=== PATIENT | male | born 1935 | race Caucasian/White ===

== ENCOUNTER 2016-07-14 07:43 | Day surgery (SDC) | payer MEDICARE ==
[~2016-07-14 07:43] MED LIST: ASPI-973 PO; ATEN25TA PO; CLOB15CR3 TOP; FLUO10TA PO; GLPZ5T PO; INSU100V7 SUBQ; ISOS60TA2 PO; KTC2C15 EXT; NITR0.4T6 SL; OMEP20CA11 PO; PANT40TA2 PO; PANT40TA3 PO; ROB500 PO; TAMS0.4C98 PO
[2016-07-14] MEDS ORDERED: Lidocaine Topical 2% 30 mL Jelly ONE (07:47)
[2016-07-17] MEDS ORDERED: CLOP75TA28 PO (16:24)
[2016-07-17] MEDS ORDERED: INSLIS SUBQ (16:24)
== END 2016-07-14 23:59 | disposition home or self-care (01) ==
LOC: END 07:43
PROVIDERS: ATTEND Internal Medicine Gastroenterology
DX: K22.4 Dyskinesia of esophagus (principal); R13.10 Dysphagia, unspecified

== ENCOUNTER 2016-07-20 10:46 | Day surgery (SDC) | payer MEDICARE ==
[~2016-07-20] VITALS: Ht 185.4 cm; Wt 98.0 kg
[~2016-07-20 10:46] MED LIST changes: +0.9% Sodium Chloride 1,000 ML IV PRN; -ASPI-973 PO; +CLOP75TA28 PO; -FLUO10TA PO; +INSLIS SUBQ; -ISOS60TA2 PO; -KTC2C15 EXT; +Lactated Ringer's 1,000 ML IV ONE; -PANT40TA2 PO; -PANT40TA3 PO; +Sodium Chloride LOK Flush 10 mL Syringe IV PRN; -TAMS0.4C98 PO; +fentaNYL-PF 50 mCg/mL 2 mL Inj IVPUSH PRN
[2016-07-20 11:16] VITALS: BP 141/82; PULSE 69; RESP 14; O2SAT 98
[2016-07-20] MEDS ORDERED: ASPI-973 PO (11:16)
[2016-07-20 12:05] VITALS: BP 135/85; PULSE 76; RESP 16; O2SAT 90
[2016-07-20 12:15] VITALS: BP 134/69; PULSE 69; RESP 16; O2SAT 93
[2016-07-20 12:25] VITALS: BP 134/73; PULSE 77; RESP 16; O2SAT 94
[2016-07-20 12:35] VITALS: BP 137/69; PULSE 74; RESP 16; O2SAT 92
--- NOTE | 2016-07-20 23:31 | ENDO ---
[address] [address] ENDOSCOPY PROCEDURE PATIENT: KATIE NGUYEN : 1935 MR#: [id number] ADMIT: 07/20/2016 JOB ID: [id number] DATE OF PROCEDURE: 07/20/2016 PRIMARY PROVIDER: Tammy Briggs MD. PROCEDURE: Esophagogastroduodenoscopy with biopsy. INDICATIONS: An 81-year-old male with recent inflamed proximal duodenum secondary to a change in NSAID therapy. He has since converted back to 81 mg aspirin and is back down to once daily PPI. He is not having any further symptoms for which he had to go to the emergency department for back in May. His manometry was reviewed today with the patient and does suggest some very subtle signs of early achalasia. The patient was not inclined to start changing around medical therapy at present. EQUIPMENT: [id number]. SEDATION: 1. Versed 2 mg. 2. Fentanyl 50 mcg. COMPLICATIONS: None identified. PROCEDURE INFORMATION: After the risks and benefits were explained, written and verbal informed consent was obtained. The patient was brought into the endoscopy suite and placed into the left lateral decubitus position. Sedation was achieved as above. The scope was introduced into the mouth through the bite block, and advanced under direct visualization to the second portion of the duodenum. The scope was slowly withdrawn to carefully examine the mucosa for any defects or lesions. Retroflexed views were accomplished in the stomach. The stomach was decompressed. The scope was removed from the patient who tolerated the procedure well. FINDINGS: 1. Esophagus: The squamocolumnar junction seemed to correlate with the top of the gastric folds. The GE junction was at about 40 cm from the incisors. No strictures. No erosions. No mass lesions. 2. Stomach: Retroflexed views of the LES disclosed a small sliding hiatal hernia. In the fundus there was a very small submucosal lesion that was mobile under the mucosal layer, reasonably firm. We were able to get a biopsy forceps on this and took a bite of it for histopathologic analysis. Otherwise, the patient had diffuse gastropathy as before. We did not repeat biopsies. No evolution in any findings in the stomach. No outlet obstruction. 3. Duodenum: The patient appeared to have scattered erythema throughout the bulb and some mild stenosis, but no impediment to passing the scope into D2 as was previously described. Overall, my impression was the mucosa appeared to be less inflamed than previously described. We did not repeat biopsies today. ENDOSCOPIC DIAGNOSES: 1. Small sliding hiatal hernia. 2. Proximal gastric small submucosal lesion. 3. Diffuse gastropathy with nodular features in the antrum and prepyloric region. 4. Healing proximal duodenopathy. RECOMMENDATIONS: 1. Await histopathology. 2. Surveillance EGD will really be contingent on the histology results. 3. Continue omeprazole and the low-dose aspirin. 4. The patient was suggested to follow up in Cardiology or Primary Care to consider switching out his atenolol for 30 mg diltiazem 3 times a day before meals. However, at this time the patient indicates his swallowing is not that big of a nuisance and he would rather not mess with his medical regimen at present.
--- NOTE | 2016-07-21 13:24 | PATH ---
SURGICAL PATHOLOGY Attending Physician:Camilo Bedoya CASE STATUS: Signed Out PATIENT NAME: KATIE NGUYEN PID: [id number] : 1935 DATE COLLECTED:07/20/2016 20:32 SPECIMEN: Gastric, Biopsy CLINICAL HISTORY: SUBMUCOSAL GASTRIC NODULE BIOPSY FINAL DIAGNOSIS: Biopsy Stomach Submucosal Nodule: Antral mucosa with hypertrophy of muscularis mucosa. Negative for evidence of neoplasm. ICD10 K31.89 GROSS DESCRIPTION: The specimen is received in one formalin filled container labeled with the patient's name, sublabeled "submucosal gastric nodule" consists of a 0.3 x 0.3 x 0.3 CM portion of tissue which is entirely submitted in one cassette. 07/20/2016 [facility] ICD-9 CODES: CPT CODES: 1: 74007 Electronically Signed Out Jacoby Thomas MD [facility] [address], [place] [address] Technical component performed at [facility], [address] [place] [address] Ave[address], [place], [address]
== END 2016-07-20 23:59 | disposition home or self-care (01) ==
LOC: END 10:46
PROVIDERS: ATTEND Internal Medicine Gastroenterology
DX: K31.89 Other diseases of stomach and duodenum (principal); K44.9 Diaphragmatic hernia without obstruction or gangrene; K29.80 Duodenitis without bleeding; I25.10 Atherosclerotic heart disease of native coronary artery without angina pectoris; Z95.1 Presence of aortocoronary bypass graft; E11.9 Type 2 diabetes mellitus without complications; Z79.4 Long term (current) use of insulin; I10 Essential (primary) hypertension; Z95.810 Presence of automatic (implantable) cardiac defibrillator
CPT/HCPCS: 43239; 99153; G0500; J2250; J7030

== ENCOUNTER 2016-11-16 04:54 | Inpatient (IN) | payer MEDICARE ==
[2016-11-16] VITALS (10 sets, daily range): BP systolic 135–157; BP diastolic 70–97; PULSE 55–74; RESP 18–20; O2SAT 93–94
[~2016-11-16] VITALS: Ht 185.4 cm; Wt 93.7 kg
[~2016-11-16 04:54] MED LIST changes: -0.9% Sodium Chloride 1,000 ML IV PRN; +ASPI-973 PO; -CLOP75TA28 PO; -Lactated Ringer's 1,000 ML IV ONE; -Sodium Chloride LOK Flush 10 mL Syringe IV PRN; -fentaNYL-PF 50 mCg/mL 2 mL Inj IVPUSH PRN
[2016-11-16] MEDS ORDERED: Polyethylene Glycol (PEG) 17 Gm Powder PO PRN (05:55)
[2016-11-16] MEDS ORDERED: Ondansetron 2 mg/mL 2 mL Inj IVPUSH PRN (05:55)
[2016-11-16] MEDS ORDERED: Senna-Docusate 8.6-50 mg Tablet PO PRN (05:55)
[2016-11-16] MEDS ORDERED: Alum-Mag Hydrox-Simeth 30 mL Suspension PO PRN (05:55)
[2016-11-16 06:27] LABS: BASOPHILS % (AUTO) 0.6 % (0-3); EOSINOPHILS % (AUTO) 5.1 % (0-5); MONOCYTES % (AUTO) 8.2 % (4-12); Mean Corpuscular Hemoglobin 30.4 pg (27.0-35.0); Mean Corpuscular Volume 88.7 fL (81-100); NEUTROPHILS % (AUTO) 61.9 % (40-74); Platelet Count 209 bil/L (150-400)
[2016-11-16] MEDS: 0.9% Sodium Chloride 1,000 ML IV SCH ×2 (06:28→20:30)
[2016-11-16 06:43] LABS: INR 0.95 ratio
--- NOTE | 2016-11-16 06:45 | NUR ---
Admission: Pt received from [facility] at 0540 to room 2003 with complaints of R shoulder/arm pain 4/10. Pt transferred over on 19.9 mls/hour of heparin. Pt placed on our pump at 20 ml/hour or 1000 unit/hour, awaiting PTT results. Dr. Benitez notified of heparin gtt and R shoulder/arm pain. Pt given 2 mg of IV Morphine, which brought his R should/arm pain down to a 2/10. Pt has 1/2" of Nitro paste from [facility] on his RUC wall. Initial assessment completed as charted. Pt atrially paced on the monitor and currently resting. 2L of oxygen placed on pt. Call light within reach; bed in the low and locked position. Will cont. to monitor and update oncoming staff.
[2016-11-16] MEDS: Nitroglycerin 2% 1 Gm Ointment TOPICAL SCH ×3 (07:53→20:30)
[2016-11-16] MEDS: Sodium Chloride LOK Flush 10 mL Syringe IVFLUSH SCH ×2 (07:53→16:25)
[2016-11-16 07:55] LABS: TROPONIN T 0.304 ug/L (0.0-0.011)
[2016-11-16] MEDS ORDERED: Glucose 40% Oral Gel 15 Gm Tube PO PRN (08:05)
[2016-11-16] MEDS ORDERED: FLUO10CA20 PO ×2 (08:27)
[2016-11-16] MEDS ORDERED: Insulin GLARgine 100 Unit/mL Syringe SUBQ SCH (08:30)
[2016-11-16] MEDS ORDERED: PANT40TA3 PO (08:34)
[2016-11-16] MEDS: Insulin LISPRO 300 Unit/3 mL Inj SUBQ SCH ×3 (12:00→20:31)
--- NOTE | 2016-11-16 13:43 | DRSVH ---
[facility] [address] [place] [address] Echocardiogram Report Name: KATIE NGUYEN WStudy Date : 11/16/2016 Height: 73 in Hospital Exam Location: [facility] Weight: 220 lb Gender: Male BSA: 2.2 m2 : 1935 Age: 81 yrs BP: 147/81 mmHg Reason For Study: Chest pain Ordering Physician: Performed By: [facility] Interpretation Summary 1) Upper normal left ventricular thickness with normal size and normal systolic function (EF 55-60%). 2) Mid inferior wall is hypokinetic. 3) Normal right ventricular size with borderline reduced function. Pacemaker lead visualized in the right ventricle. 4) No significant valvular abnormalities present. 5) Compared to the Echo done 05/19/2016, mid inferior wall hypokinesis is new on today's study. Procedure: A two-dimensional transthoracic echocardiogram with color flow and Doppler was performed. The study quality was technically adequate. Comparison is made with the echocardiogram of 05-19-16. The patient has a paced rhythm. Left Ventricle: The left ventricle is normal in size. Left ventricular wall thickness is at the upper limits of normal. The ejection fraction is estimated to be 55-60%. There is apical septal wall hypokinesis. Diastolic function could not be accurately assessed due to paced rhythm. Right Ventricle: There is a pacemaker lead in the right ventricle. The right ventricle is normal size. Right ventricular systolic function is borderline reduced. Atria: The left atrium is mildly dilated. Right atrial size is normal. There is a catheter/pacemaker lead seen in the right atrium. The interatrial septum is intact with no evidence for an atrial septal defect. Mitral Valve: The mitral valve leaflets appear mildly thickened, but open well. There is moderate mitral annular calcification. There is mild mitral regurgitation. Aortic Valve: The aortic valve is trileaflet. The aortic valve opens well. No aortic regurgitation is present. Tricuspid Valve: The tricuspid valve leaflets are thin and pliable. There is mild tricuspid regurgitation. The right ventricular systolic pressure is estimated at 42 mmHg assuming a right atrial pressure of 3 mm Hg. Pulmonic Valve: The pulmonic valve is not well seen, but is grossly normal. There is trace pulmonic regurgitation. Great Vessels: The aortic root is normal size. The ascending aorta is normal in size. The IVC is of normal diameter and collapses greater than 50% with a sniff. This suggests a low right atrial pressure of 3 mm Hg. Pericardium/ Pleura There is no pericardial effusion. There is no pleural effusion. MMode/2D Measurements & Calculations LVIDd: 4.7 cm LA dimension: 4.8 cm RA long axis Ao root diam LVIDs: 2.9 cm FS: 38.1 % LA A2 area: 28.5 cm RA area Aortic Jxn: 3.0 cm IVSd: 1.1 cm LA A4 area: 26.9 cm asc Aorta Diam LVPWd: 1.1 cm LA length (vol) : 21.0 cm RA vol Ao Arch Diam (Prox LA vol: 95.3 ml : 70.1 ml Trans): 3.3 cm LA vol index RA : 31.3 mm/ RVDd major IVC diam: 1.8 cm : 6.0 cm LV glass. diameter/BSA LV sys. diameter/BSA RVD1 (basal) RVD2 (mid): 3.4 cm (cm/m^2): 2.1 (cm/m^2): 1.3 Doppler Measurements & Calculations LVOT Max Kedar MV E max kedar MV E/A: 1.2 TR max kedar : 133.2 cm/sec : 119.7 cm/sec Med Peak E' Kedar : 311.6 cm/sec MV A max kedar TR max PG : 103.0 cm/sec E/E' med: 23.6 : 38.8 mmHg MV P1/2t: 57.2 msec Lat Peak E' Kedar PA V2 max : 97.2 cm/sec E/E' lat: 16.9 PA mean PG E/e' average PA Accel Time MV A dur: 0.14 sec : 0.13 sec MV dec time MV P1/2t max kedar LV V1 max PG PA V2 mean : 0.19 sec : 61.6 cm/sec MVA(P1/2t): 3.8 cm2 LV V1 VTI: 31.5 cm Reading Physician:01:43 PM
--- NOTE | 2016-11-16 14:32 | PCM.CHPCAR ---
Consult Subjective Date of service November 16, 2016 Date of admit November 16, 2016 at 05:44 Provider Requesting Consult Requesting Provider: Jackson Hand MD Primary Care Physician Primary Care Physician: Tammy Briggs MD Chief Complaint Chest pain with pain in right arm then left arm also began 2 days ago. History of Present Illness Mr. Montoya is an 81-yr old man with a history of CAD and prior 5-vessel AC Bypass surgery in 2009. He had polymorphic VT around that time although his grafts remained patent. He received a dual chamber ICD in 2009 and it has continue to perform normally with no detections of sustained since implant. Last ICD check was on 10/19/16; leads were good and battery remaining longevity est. was 2.9 yrs. Mr. Montoya also has hx of diabetes, hypertension and dyslipidemia. Starting at least a year ago, he has not been able to make the round trip to his mailbox without resting at the mailbox. Symptoms have been exertional dyspnea a fatigue. In recent weeks be began having right shoulder and arm discomfort with exertion. He and his family went RV camping this weekend at [facility]. His says he has been very inactive at home and spend most of his time in his recliner then sleeps 10 hrs at night. He could not rest well at the campground and has right arm pain which was continuous. Wednesday night he took full doses of Tylenol but could not get relief. His discomfort was from epigastrum to clavicles and went down both arm to his fingers. He finally took NTG with definite improvement. With this, decision was clear to him and his that they needed to head to [facility] which was some 45 miles away. He took 2 more SL NTGs each 10 min and had positive response but it was not until he was in ED and NTG paste was applied that he finally had good relief from pain. Mr. Montoya was transferred to [facility]. Review of Systems General: Reports: Endurance (poor) Fatigue Normal Appitite Eyes: Denies: Problem or recent change in eyes Ears, Nose, Mouth & Throat: Reports: Partial hearing loss Denies: Difficulty speaking Difficulty swallowing Respiratory: Reports: Dyspnea with exertion Denies: Cough or wheezing Orthopnea or PND Significant dyspnea Cardiovascular: Reports: Chest discomfort typical for angina Denies: Abdominal distention Lightheadedness or syncope Lower extremity edema Gastrointestinal: Denies: Abdominal discomfort Nausea Genitourinary: Denies: Hematuria Musculoskeletal: Reports: Significant myalgias (Right arm and shoulder) Neurological: Reports: Dizziness Denies: Any history of stroke/TIA symptoms Slurred speech Psychiatric: Reports: Anxious Depression (mild) Sleep disturbance Endocrine: Denies: Heat or cold intolerance Polydipsia Integumentary: Denies: Any rash or skin lesions Skin discomfort Hematologic/Immunologic: Denies: Unusual bruising or bleeding PMH Past Medical History # CAD s/p 5V CABG in 1999 # VT s/p AICD 2009 # CKD # Poorly controlled diabetes # Hyperlipidemia # Hypertension HEENT History: Positive for:: Hearing Problem Cardiovascular History: : AICD Cardiovascular History: : Cardiac Surgery (5-Vessel AC Bypass in 2009) Cardiovascular History: : Coronary Artery Disease Cardiovascular History: : Hx Cardiac Disorders Cardiovascular History: : Hypertension Cardiovascular History: : Other Arrythmias (Polymorphic VT) Respiratory History: Denies:: COPD Pneumonia Gastrointestinal History: Positive for a: Gastroesphageal Reflux Denies: Gastrointestinal Bleeding Genitourinary History: Denies: HX of Hemodialysis Reproductive History Male: Denies: Prostate Problems Neurological History: Denies: CVA Dementia Musculoskeletal History: Positive for: Degenerative Joint (of hip) Psycho Social History: Positive for:: Hx Depression Skin History: Denies:: History Skin Disorders? Hematic/Lymphatic/Neoplastic: Positive for: Cancer (large intestine) Denies: Blood Disorders Hx Any Other Health Problems?: Yes (renal insufficiency)Hx Diabetes: Yes Bedside Blood Glucose: 182 Scheduled Aspirin (Aspirin) 81 Mg Tablet 81 MG PO DAILY (Reported) Atenolol (Atenolol) 25 Mg Tablet 25 MG PO HS (Reported) Fluoxetine (Fluoxetine) 10 Mg Capsule 10 MG PO MORNING (Reported) Fluoxetine (Fluoxetine) 10 Mg Capsule 20 MG PO HS (Reported) Glipizide (Glipizide) 5 Mg Tablet 10 MG PO BID (Reported) Insulin Glargine (Lantus U100 Insulin Vial) 100 Unit/Ml Vial 40 UNIT SUBQ QAM ( Reported) Insulin Human Lispro (HumaLOG U100 Insulin Vial) 100 Unit/Ml Unit 2-5 UNIT SUBQ TID (Reported) Check blood sugars before meals and at bedtime. Use correction factor only before meals. Blood Sugar Lispro Correction: <151, 0 units; 151-175, 1 unit; 176-200, 2 units; 201-225, 3 units; 226-250, 4 units; 251-275, 5 units; 276-300 , 6 units; 301-325, 7 units; 326-350, 8 units; 351-375, 9 units; 376-400, 10 units; >400, [address] (Pantoprazole DR) 40 Mg Tablet.dr 40 MG PO HS (Reported) Scheduled PRN Nitroglycerin SL (Nitroglycerin SL) 0.4 Mg Tab.subl 0.4 MG SL PRN PRN PRN CHEST PAIN (Reported) Discontinued Medications Clobetasol Propionate/Emoll (Clobetasol Emollient 0.05% Crm) 15 Gm Cream..g. 1 APPL TOP BID PRN PRN dry skin (Reported) Methocarbamol (Methocarbamol) 500 Mg Tablet 500 MG PO (Reported) Omeprazole (Omeprazole) 20 Mg Capsule.dr 20 MG PO 3X WEEK (Reported) Current Inpatient Medications Current Medications Sodium Chloride 10 ml 10 ml [id number] IVFLUSH Last administered on 11/16/16 07:53; Admin Dose 10 ML; Start 11/16/16 at 08:30 Sodium Chloride 1,000 ml @ 80 mls/hr [id number] IV Last administered on 11/16/16 06:28; Admin Dose 80 MLS/HR; Start 11/16/16 at 05:53 Aspirin 81 mg DAILY PO Last administered on 11/16/16 07:53; Admin Dose 81 MG; Start 11/16/16 at 08:30 Nitroglycerin 1 inch Q6 TOPICAL Last administered on 11/16/16 07:53; Admin Dose 1 INCH; Start 11/16/16 at 08:30 Al Hydrox/Mg Hydrox/Simethicone 30 ml Q6 PRN PO; Start 11/16/16 at 05:55 Ondansetron HCl 4-8 mg prn nausea Q4 PRN IVPUSH; Start 11/16/16 at 05:55 Senna 1 tablet BID PRN PO; Start 11/16/16 at 05:55 Polyethylene Glycol 17 gm DAILY PRN PO; Start 11/16/16 at 05:55 Acetaminophen 325 mg Q6 PRN PO; Start 11/16/16 at 05:55 Nitroglycerin 0.4 mg Q5MIN PRN SL; Start 11/16/16 at 05:55; Stop 11/16/16 at 06 :14; Status DC Morphine Sulfate 1-5 mg prn pain not relie... Q5M PRN IVPUSH Last administered on 11/16/16 06:24; Admin Dose 2 MG; Start 11/16/16 at 05:55 Heparin Sodium (Porcine) Per Protocol for a... PRN PRN IVPUSH; Start 11/16/16 at 06:50 Insulin Glargine 20 unit DAILY SUBQ; Start 11/16/16 at 08:30; Stop 11/16/16 at 09:50; Status DC Insulin Human Lispro Nutritional Dose to be given pr... [facility] SUBQ; Start at 12:00 Atenolol 25 mg DAILY PO Last administered on 11/16/16 10:45; Admin Dose 25 MG; Start 11/16/16 at 08:30 Insulin Glargine 20 unit HS SUBQ; Start 11/16/16 at 21:00 Allergies: Coded Allergies: [id number]-[id number] Reductase Inhibitor (Verified Allergy, Intermediate, MAKE HIM HURT ALL OVER, 11/16/16) bupropion (Verified Allergy, Intermediate, ANXIETY, 11/16/16) metformin (Verified Allergy, Unknown, 11/16/16) STATES CANNOT TAKE DUE TO KIDNEY FUNCTION lactose (Verified Adverse Reaction, Intermediate, Diarrhea, 11/16/16) Family History Family History daughter healthy Social History Hx Alcohol Use: NoHx Substance Use: NoHx Tobacco Use: Yes Smoking Status: Former Smoker Exam Vital Signs Vital Sign - Last Date Time Temp Pulse Resp B/P Pulse Ox O2 Delivery O2 Flow Rate FiO2 11/16/16 13:12 36.2 65 18 141/79 93 Nasal Cannula 2.00 General: Pleasant Cooperative Moderately obese Well developed, well nourished Skin: Warm & dry to touch No rashes Head: Normocephalic Balding male pattern Eye: EOMS intact PERRLA Neck: Nuchal obesity:JVP assess difficult JVP normal No bruits Ears, Nose & Throat: Ears no gross abnormalities Hearing loss Chest: Clear auscultation w/o rales/wheeze Normal breath sounds No rales or wheeze Cardiac: Normal non-displaced apical impulse Regular rhythm with normal S1-S2 Occasional premature beats No murmurs Pulses: Pulses full/equal all extremities Abdomen: Soft, non-distended, non-tender Absent bowel sounds Extremities: No deformities/club/erythema/edema Warm Neurological: Alert & oriented No gross motor or sensory deficits Oriented to time, person & place Psychological: Affect & interaction appropriate Memory grossly intact Oriented to time, place and person Other (easily irritable) Lab and Diagnostics Labs Peak troponin 0.381 Result Diagram: 11/16/1661611/16/16616 Assessment & Plan Assessment 81 yo M h/o CAD s/p 5V CABG in 1999, VT s/p ACID 2009, CKD, poorly controlled diabetes admitted with acute coronary syndrome/NSTEMI: # NSTEMI: patient's clinical presentation and troponin elevation are consistent with NSTEMI. He is having minimal symptoms now with nitro paste and heparin gtt. Patient's ECG is unchanged from his prior ECG. His Echo shows mid inferior wall hypokinesis but with overall preserved LV function. I spent significant time educating the patient about his condition and later also spoke with his over the phone. I recommended medical management for now as his MN appears mild. If medical management fails, he can be considered by invasive angiography with possible PCI. Risks involved in cardiac cath are MN, stroke, , and need for dialysis (especially due to his CKD). Recommendations as below: - Continue aspirin 81mg daily - Continue heparin gtt - Start clopidogrel 75mg daily after 300mg load - Continue nitro paste - Continue atenolol 25mg qAM - Start rosuvastatin 2.5mg qhs. Patient strongly opposed to statin due to prior history of statin related myalgias but is willing to try low dose rosuvastatin after much convincing. 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 Etiology is likely diabetic nephropathy. He is not in NERY-I for unclear reasons but was on it many years ago based on [facility] chart review. - Start lisinopril as above to reduce long-term progression of CKD # VT s/p AICD 2009: No VT noted since admission. ACID appears to be functioning well on telemetry. Continue to monitor. # HTN: well controlled at home per patient. BP elevated in the hospital. - Meds as above # Diabetes: management per hospitalist service # HLD: as above Attending Statement I saw, examined, and evaluated the patient with Freddie Brownlee PA-C, on 2016 and agree with the note as above along with my edits Freddie Brownlee PA-C November 16, 2016 14:32 Klever Tristan MD November 16, 2016 15:29
--- NOTE | 2016-11-16 14:50 | PCM.HPMED ---
Subjective Date of Service November 16, 2016 Primary Provider: Admitting Physician: Vandana Nava DO Primary Care Physician: Tammy Briggs MD Attending Physician: Vandana Nava DO Admit Status: Direct Admit, [facility] Telemetry Chief Complaint: Chest pain, NSTEMI History of Present Illness: This is a 81-year-old gentleman who presented to [facility] 2 days of intermittent right arm and neck pain as well as chest pain. The patient is described as low-level and aching but persistent. With this he had fatigue but no nausea, vomiting or diaphoresis. No overt dyspnea. He has a history of known CAD with a history of coronary artery bypass grafting 5 in 2009. He also has a known history of polymorphic ventricular tachycardia with an ICD implantation in 2009. He notes increasing dyspnea on exertion but no pedal edema for the last year. The patient denies recent fevers or chills. No cough. No abdominal pain, nausea. No rectal bleeding or diarrhea. He was brought to [facility] by his family today were subungual nitroglycerin and topical cold nitroglycerin were given. He was heparinized and transferred for further evaluation. He unfortunately also has chronic kidney disease which borders on stage III and 4. His GFR today is 30. He denies any recent change in urine volume or quality. He is unconvinced that she would pursue dialysis if and when that became a consideration. Review of Systems: No headache, visual changes or change in hearing. No rhinorrhea. No wall weight change. He denies anxiety or depression. All systems reviewed and otherwise negative except as noted in history of present illness. Allergies Coded Allergies: Miukbnm-Jkx-Vtp Reductase Inhibitor (Verified Allergy, Intermediate, MAKE HIM HURT ALL OVER, 11/16/16) bupropion (Verified Allergy, Intermediate, ANXIETY, 11/16/16) metformin (Verified Allergy, Unknown, 11/16/16) STATES CANNOT TAKE DUE TO KIDNEY FUNCTION lactose (Verified Adverse Reaction, Intermediate, Diarrhea, 11/16/16) Home Medications Aspirin (Aspirin) 81 Mg Tablet 81 MG PO DAILY (Reported) Atenolol (Atenolol) 25 Mg Tablet 25 MG PO HS (Reported) Fluoxetine (Fluoxetine) 10 Mg Capsule 10 MG PO MORNING (Reported) Fluoxetine (Fluoxetine) 10 Mg Capsule 20 MG PO HS (Reported) Glipizide (Glipizide) 5 Mg Tablet 10 MG PO BID (Reported) Insulin Glargine (Lantus U100 Insulin Vial) 100 Unit/Ml Vial 40 UNIT SUBQ QAM ( Reported) Insulin Human Lispro (HumaLOG U100 Insulin Vial) 100 Unit/Ml Unit 2-5 UNIT SUBQ TID (Reported) Check blood sugars before meals and at bedtime. Use correction factor only before meals. Blood Sugar Lispro Correction: <151, 0 units; 151-175, 1 unit; 176-200, 2 units; 201-225, 3 units; 226-250, 4 units; 251-275, 5 units; 276-300 , 6 units; 301-325, 7 units; 326-350, 8 units; 351-375, 9 units; 376-400, 10 units; >400, [address] (Pantoprazole DR) 40 Mg Tablet.dr 40 MG PO HS (Reported) Scheduled PRN Nitroglycerin SL (Nitroglycerin SL) 0.4 Mg Tab.subl 0.4 MG SL PRN PRN PRN CHEST PAIN (Reported) Discontinued Medications Clobetasol Propionate/Emoll (Clobetasol Emollient 0.05% Crm) 15 Gm Cream..g. 1 APPL TOP BID PRN PRN dry skin (Reported) Methocarbamol (Methocarbamol) 500 Mg Tablet 500 MG PO (Reported) Omeprazole (Omeprazole) 20 Mg Capsule.dr 20 MG PO 3X WEEK (Reported) Current Inpatient Medications PMH CAD with history of coronary artery bypass grafting. Polymorphic ventricular tachycardia with ICD implantation Chronic kidney disease stage III Surgical History Coronary artery bypass grafting 2009. Family History Strong family history for CAD. Several brothers have prematurely from heart attack. Social History Occupation: retired Hx Alcohol Use: No Hx Substance Use: No Hx Tobacco Use: Yes Smoking Status: Former Smoker Living Arrangement: with Family Exam Vital Signs Vital Sign - Last Date Time Temp Pulse Resp B/P Pulse Ox O2 Delivery O2 Flow Rate FiO2 11/16/16 13:12 36.2 65 18 141/79 93 Nasal Cannula 2.00 Exam Oriented 3. No distress. Fluent speech. Normal affect. Normal skull. Normal nose and ears. Anicteric sclera, symmetric pupils Oropharynx is unremarkable, no facial droop. Neck is supple, normal thyroid. No adenopathy. Lungs are clear, normal effort rate. Chest is normal for an ICD, subcutaneous. Heart is regular without murmur gallop or rub. Abdomen soft, nondistended or tender. Extremities are free of pedal edema. Good radial and pedal pulses. Skin is free of rash, lesions. No petechiae or ecchymosis. Joints are grossly normal. Cranial nerves are grossly normal. Motor strength is normal in all extremities. Normal muscular tone. Lab and Diagnostics Result Diagram: 11/16/1661611/16/16616 12-lead ECG Sinus rhythm, right bundle branch block. Possible anterolateral ST depressions and Q waves in inferior leads. Assessment & Plan 1. Chest pain with evidence of NSTEMI, POA and stable. The plan is to continue optimize medical therapy with beta blockade, aspirin as well as nitroglycerin topically and a heparin drip. Cardiology, consultation to further elicit their recommendations. This patient would be at high risk for deterioration of renal function in context of coronary angiogram so this may not be an option. We will also trend troponins. 2. Chronic kidney disease, stage IIIB. POA and fairly stable. We will follow his creatinine carefully and avoid any nephrotoxic events. 3. Polymorphic ventricular tachycardia, stable and POA. ICD implant. The patient is full resuscitation, this is discussed today. She was admitted inpatient status with anticipated length of stay of over 2 nights. Pain Evaluation: Adequate Pain Control Resuscitation Status: CPR: Attempt Resuscitation Time spent 45 minutes Jackson Hand MD November 16, 2016 14:50
[2016-11-16 15:38] LABS: APPEARANCE,URINE CLEAR (CLEAR,HAZY); COLOR,URINE YELLOW (YELLOW); PH,URINE 5.5 (5.0-8.0)
[2016-11-16 15:39] LABS: OCCULT BLOOD,URINE SMALL (NEGATIVE); UROBILINOGEN,URINE NORMAL (NORMAL)
--- NOTE | 2016-11-16 16:21 | NUR ---
Social Work-initial assessment: Data:See initial assessment. Pt is a 81 y/o male who was admitted on 11/16/16 for N stemi per H&P. Pt's insurance is [employer] and PCP is Tammy Briggs MD. EMR reviewed. SW met with pt to discuss discharge planning, SW Role explained. Pt is alert and oriented x3. Pt resides at home with his where he remains independent with ADLS. pt has a fww and cane to use and does drive. Pt had HH one time, but he kicked them out. Pt has no SNF history. Pt has no intermission coordinator care or VA benefits. SW discussed DPOA/ advanced directive, pt confirms he has completed this, SW encouraged a copy to be brought in. Pt anticipates to return home no needs. Pt's family to provide transport home. SW provided phone number and plan on white board in room. SW will continue to follow. Assessment:Pt who is independent at baseline. Plan:Pt to discharge home when medically stable via POV. No anticipated discharge needs. SW will continue to follow. ENRIQUE Benavidez Addendum: 11/16/16 at 1631 by ORALIA LEONARD SS Amended: Links added.
--- NOTE | 2016-11-16 17:57 | NUR ---
CARDIAC/RESPIRATORY Patient denies CP this shift, although does continue to report dull ache in L shoulder, but tolerable level at 2/10. Nitro paste applied per orders, medications administered as ordered. Heparin gtt adjusted per cardiac protocol and PTT results. Most recent PTT of 33.0, so will increase heparin gtt again per protocol. Vitals stable, telemetry paced in 60s-70s, will continue to monitor. Patient has continued to require 2L NC this shift, w/ SpO2 only in low to mid 90s. Will continue to monitor respiratory status. at bedside for most of day, and patient has reported feeling "wiped out" today, requests to sleep for much of shift.
[2016-11-16] MEDS: Insulin GLARgine 100 Unit/mL Syringe SUBQ SCH (20:31)
[2016-11-17] VITALS (8 sets, daily range): BP systolic 121–146; BP diastolic 63–74; PULSE 64–77; RESP 20–24; O2SAT 91–94
[2016-11-17] MEDS: Heparin 5,000 Unit/mL Inj IVPUSH PRN ×2 (00:20→12:05)
[2016-11-17] MEDS: Sodium Chloride LOK Flush 10 mL Syringe IVFLUSH SCH ×3 (00:20→16:30)
[2016-11-17] MEDS: Heparin 25K Unit/500mL 0.45 NS 25,000 UNIT in IV Premix 1 EACH IV SCH ×2 (03:39→22:31)
[2016-11-17] MEDS: Nitroglycerin 2% 1 Gm Ointment TOPICAL SCH ×4 (03:40→20:42)
--- NOTE | 2016-11-17 07:05 | NUR ---
Cardiac Pt denies CP throughout. VSS. Heparin infused and managed per cardiac protocol. No overt complications noted.
[2016-11-17] MEDS: Insulin LISPRO 300 Unit/3 mL Inj SUBQ SCH ×4 (08:00→20:43)
[2016-11-17 09:00] LABS: Magnesium 1.9 mg/dL (1.6-2.6)
[2016-11-17 09:05] LABS: TROPONIN T 0.444 ug/L (0.0-0.011)
[2016-11-17] MEDS: 0.9% Sodium Chloride 1,000 ML IV SCH ×2 (09:12→20:42)
--- NOTE | 2016-11-17 09:19 | PROG NOTE ---
[address] [address] PROGRESS NOTE PATIENT: KATIE NGUYEN : 1935 MR#: [id number] ADMIT: 11/16/2016 JOB ID: [id number] DATE: 11/17/16 SUBJECTIVE: The patient is an 81-year-old male with a longstanding history of diabetes, hypertension, and untreated hyperlipidemia with chronic renal disease with creatinines generally in the 1.4-1.8 range who has been followed by Dr. Mccallum. He had a five-vessel CABG in 2009 complicated by polymorphic VT with repeat catheterization that showed patent grafts. He ultimately obtained a dual-chamber ICD in April 2010 although has not had any discharges since implantation. Over the past year, he has had progressive increasing dyspnea and occasional chest discomfort and saw Dr. Mccallum in April 2016 following an admission when his creatinine had increased to 2.2. His most recent ischemic evaluation was in April of 2014 when he had a moderate intensity reversible distal anterior perfusion defect, which was similar to 2009 at the time of his repeat catheterization. Because of his renal insufficiency, he has continued to be treated medically. He was admitted with a 2-3 day history of much more severe and prolonged chest discomfort radiating across the upper chest into both arms and into his neck. This was relieved by nitroglycerin. On admission, his creatinine had increased back up to 2.2 with a troponin of 0.38. While his ECG reportedly showed no changes, on my personal review, there clearly is some new ST depression in the anterolateral leads with very subtle ST elevation in lead III. He was started on IV heparin and underwent echocardiography that showed an ejection fraction of 55%-60% with a new mid inferior wall area of hypokinesis. Because of his renal insufficiency, he has been treated medically with heparin, Plavix, and topical nitrates. He states that he had recurrent chest discomfort this morning when standing to take off his pants that was similar to his presenting discomfort but it promptly resolved. He has had no dyspnea. He denies any palpitations. DATE: PHYSICAL EXAMINATION: HR 77, BP 137/74. O2 saturation 93% on room air. Weight is 100.9 kg. Lungs: Clear bilaterally to auscultation. CV: Regular rate and rhythm without any appreciable murmurs or gallops. JVP is around 4 cm. Carotid pulses are 2+ bilaterally with a possible faint bruit on the left. Abdomen: Moderately obese but nondistended, nontender, without any palpable masses or organomegaly. Extremities: Warm without edema. LABORATORY: Labs from this morning are pending. His CK yesterday was 221 with an MB of 19 (8.6%). His LDL was 138. BUN yesterday was 32 with a creatinine of 2.2 with a glucose of 292. ECG: His ECG today shows an atrial paced rhythm with frequent PACs with a right bundle branch block and small inferior Q-waves with a very slight ST elevation in lead III with significant ST depression in the anterolateral leads but unchanged from yesterday. IMPRESSION: 1. Probable NSTEMI. On the basis of his symptoms, echocardiogram, and ECG as well as his elevated troponin, I suspect that he has had an acute coronary syndrome, likely in the inferior distribution. It sounds like he has had recurrent post infarct angina this morning. Given this, I have discussed with him again about possible strategies going forward. One would be continued attempted medical management while the other would be to pursue an invasive evaluation, recognizing that his renal insufficiency puts him at risk for nephropathy from contrast. He again adamantly declines to consider dialysis but is willing to proceed with cardiac catheterization. I discussed that there could be no guarantee that he would not have progressive renal failure which could ultimately lead to and his response is "you have to go sometime." At this point, I will await this morning's laboratory and discuss further with Dr. Higginbotham in regards to attempting cardiac catheterization with limited use of contrast. In the meantime, I will continue with his current medical therapy. 2. Hyperlipidemia. He remains adamant that he will not try any statins. 3. Diabetes. Per the hospitalist. 4. Hypertension. Adequately controlled. 5. History of polymorphic VT. No evidence of any recurrence. PLAN: 1. Continue with his current medications for now, although I would be inclined to change his atenolol to metoprolol because of his renal insufficiency. 2. Discuss further with Dr. Higginbotham in regards to possible cardiac catheterization. 3. Diabetes management per the hospitalist. I spent from 7:45-8:49 reviewing the patient's medical record, examining the patient, interviewing the patient and answering his questions.
--- NOTE | 2016-11-17 10:29 | PCM.PNMED ---
Subjective Date of Service November 17, 2016 Subjective The patient is feeling somewhat better today. No nausea. No vomiting. He did have mild chest pain when standing. No palpitations. No leg swelling or orthopnea. No other overnight events. Exam Vital Signs Vital Sign - Last Date Time Temp Pulse Resp B/P Pulse Ox O2 Delivery O2 Flow Rate FiO2 11/17/16 09:24 76 11/17/16 08:18 36.6 20 137/74 93 Room Air 11/16/16 20:27 2.00 Intake and Output 11/16/16 11/16/16 11/17/16 Cumulative From/Thru 15:00 23:00 07:00 11/16/16 05:40 - 11/17/16 06:12 Intake Total 1457 ml 1459 ml 2916 ml Output Total 450 ml 1400 ml 1850 ml Balance 1007 ml 59 ml 1066 ml Intake Oral 400 ml 200 ml 600 ml IV Total 1057 ml 1259 ml 2316 ml Output Urine Total 450 ml 1400 ml 1850 ml # Voids 3 3 # Bowel Movements 0 0 Exam Alert and oriented -3, no distress. Fluent speech Anicteric sclera. Lungs are clear with normal rate and effort Heart is regular without murmur gallop or rub Abdomen soft nontender, flat Extremities are free of edema. Skin is free of rash or lesions. IVs and Medications Medications Reviewed: Medications were reviewed in detail Lab and Diagnostics Result Diagram: 11/16/16 0617 11/17/16 0555 12-lead ECG Sinus rhythm, right bundle branch block. Possible anterolateral ST depressions and Q waves in inferior leads. Assessment & Plan 1. Chest pain with evidence of NSTEMI, POA and stable. Troponins have remained relatively stable but elevated on medical regimen. Cardiology has proposed coronary angiogram today. The patient is declining statins at this point. We will plan on angiography with possible PCI. 2. Acute kidney injury at the time of admission and Chronic kidney disease, stage IIIB. POA and improved overnight. We will follow his creatinine carefully and avoid any nephrotoxic events. 3. Polymorphic ventricular tachycardia, stable and POA. ICD implant. No other changes for today. The patient is full resuscitation, this is discussed today. He was admitted inpatient status with anticipated length of stay of over 2 nights. Resuscitation Status: CPR: Attempt Resuscitation Jackson Hand MD November 17, 2016 10:29
--- NOTE | 2016-11-17 17:38 | NUR ---
Trops Pt's trop came back at 0.444 today up from 0.381 at previous draw, Dr. Childers notified, instructed to make Pt NPO at that time, Dr. Higginbotham came through to discuss procedure with Pt and instructed RN to resume diet until midnight. Pt on heparin cardiac gtt throughout shift, dosing adjusted per heparin cardiac protocol.
[2016-11-17] MEDS: Insulin GLARgine 100 Unit/mL Syringe SUBQ SCH (20:43)
[2016-11-18] VITALS (11 sets, daily range): BP systolic 106–148; BP diastolic 56–75; PULSE 60–72; RESP 18–24; O2SAT 91–96
[2016-11-18] MEDS: Heparin 5,000 Unit/mL Inj IVPUSH PRN (00:31)
[2016-11-18] MEDS: Sodium Chloride LOK Flush 10 mL Syringe IVFLUSH SCH ×3 (00:32→17:58)
[2016-11-18 03:06] LABS: Mean Corpuscular Volume 88.3 fL (81-100)
[2016-11-18] MEDS: Nitroglycerin 2% 1 Gm Ointment TOPICAL SCH (03:13)
[2016-11-18] MEDS: Isosorbide Mononitrate 30 mg ER24 Tablet PO SCH (07:35)
--- NOTE | 2016-11-18 07:40 | NUR ---
Cardiac Denies CP. VSS. Heparin gtt infusing and managed per cardiac protocol. Pt is NPO since mid [facility] for possible cardiac intervention in am. Pt verbalizes understanding. Approx at 0430 pt removed his Tele leads and was angry at staff for not knowing what time the heart cath is going to be. Explained to pt no info available at this time for [facility] shift staff. After extensive talk with pt he was willing to keep Tele leads on. No overt complications noted.
[2016-11-18] MEDS: Insulin LISPRO 300 Unit/3 mL Inj SUBQ SCH ×4 (08:00→21:23)
--- NOTE | 2016-11-18 08:45 | PROG NOTE ---
[address] [address] PROGRESS NOTE PATIENT: KATIE NGUYEN : 1935 MR#: [id number] ADMIT: 11/16/2016 JOB ID: [id number] DATE: 11/18/2016 SUBJECTIVE: The patient met with Dr. Higginbotham yesterday morning and decided not to proceed with cardiac catheterization out of concerns for nephrotoxicity and the fact that he had no further chest discomfort. Since then, he has remained chest pain-free, although has not ambulated. He remains somewhat confused, pulling off his telemetry monitoring early this morning, but now is reoriented. While he denies any anginal chest discomfort, he states that he can "feel my heart." Apparently with each heartbeat, he is able to feel his heart beat. He describes mild shortness of breath but says this is his normal baseline, and denies any worsening of his dyspnea or any orthopnea. He has had no lightheadedness. PHYSICAL EXAMINATION: HR 68, BP 147/69, O2 saturation 94% on room air. His weight is not recorded today. He is up around 2 L net positive fluid balance. Skin: Warm and dry. Lungs: Clear bilaterally. CV : Irregularly irregular rhythm without any appreciable murmurs or gallops. There is no JVD. Abdomen: Moderately obese but nondistended and nontender. Extremities: Warm without any edema. LABORATORY: Hematocrit this morning is 37% with a white count of 10.7. His troponin peaked yesterday at 0.44, and this morning is 0.39. His creatinine has improved slightly from 1.52 down to 1.46, with a BUN falling from 26-25. Potassium is 4.4. Glucose this morning is 154. IMPRESSION: 1. Probable [id number] myocardial infarction (STEMI). We again discussed the therapeutic options. Given that he has not had any recurrent chest discomfort and that he has the desire to avoid hemodialysis at all cost, I think continuing to attempt medical therapy is reasonable, reserving cardiac catheterization if he has recurrent angina. Given this, I will further advance his metoprolol which was changed from atenolol yesterday. He was on 25 mg every 8 hours, and I will increase this to 50 mg b.i.d. I will also transition him from his current topical nitropaste to isosorbide mononitrate 60 mg daily, noting that he was on 90 mg as an outpatient. He has now had 48 hours of IV heparin, and I will discontinue this and have the patient ambulate. If he remains chest pain-free, then I suspect that he can be discharged tomorrow, with followup with Dr. Mccallum as an outpatient. If he has recurrent chest discomfort, then cardiac catheterization can again be considered. At this point, I do not believe that risk stratification with a stress test is going to change consultant given that I would not pursue cardiac catheterization unless he had symptoms, given his desire to avoid hemodialysis. 2. Hyperlipidemia. He appears to be tolerating low-dose rosuvastatin, and I would simply continue this at its current dose for now. He could potentially be considered for a PCSK9 inhibitor, but this can be deferred to the outpatient setting. 3. Diabetes. Much better control. 4. Hypertension. This appears to be much better controlled. 5. Status post pacemaker. Appears to be functioning normally. PLAN: 1. Advance metoprolol and transition from topical nitrates to long-acting oral nitrates, with further advancement as his blood pressure allows. 2. Discontinue IV heparin. 3. Ambulate and monitor for any recurrent angina. 4. If he remains chest pain-free, I would discharge him tomorrow, with followup with Dr. Mccallum. If he has recurrent angina, then an invasive evaluation can be pursued if he is amenable. TIME SPENT: I have spent 54 minutes reviewing the medical record, interviewing and examining the patient, and later discussing plans with the patient's . HARVINDER
--- NOTE | 2016-11-18 08:45 | PCM.PNMED ---
Subjective Date of Service November 18, 2016 Subjective He is doing well today. No chest pain, cough or dyspnea. No palpitations. No nausea or abdominal pain. No diaphoresis. He is going to the bathroom without difficulty. No overnight events Exam Vital Signs Vital Sign - Last Date Time Temp Pulse Resp B/P Pulse Ox O2 Delivery O2 Flow Rate FiO2 11/18/16 04:25 36.7 68 20 147/69 94 Room Air 11/16/16 20:27 2.00 Intake and Output 11/17/16 11/17/16 11/18/16 Cumulative From/Thru 15:00 23:00 07:00 11/16/16 05:40 - 11/18/16 05:48 Intake Total 1490 ml 1661 ml 6067 ml Output Total 1025 ml 1125 ml 4000 ml Balance 465 ml 536 ml 2067 ml Intake Oral 220 ml 400 ml 1220 ml IV Total 1270 ml 1261 ml 4847 ml Output Urine Total 1025 ml 1125 ml 4000 ml # Voids 1 4 # Bowel Movements 0 Exam Alert and oriented -3, no distress. Fluent speech Anicteric sclera. Lungs are clear with normal rate and effort Heart is regular without murmur gallop or rub Abdomen soft nontender, flat Extremities are free of edema. Skin is free of rash or lesions. IVs and Medications Medications Reviewed: Medications were reviewed in detail Lab and Diagnostics Result Diagram: 11/18/16 02411/18/16 0240 12-lead ECG Sinus rhythm, right bundle branch block. Possible anterolateral ST depressions and Q waves in inferior leads. Assessment & Plan 1. NSTEMI, POA and stable. The patient has declined coronary angiography for fear of risk of nephrotoxicity given his tenuous kidney function. We are treating him medically for an STEMI. Today we will discontinue the heparin drip and convert Nitropaste isosorbide as well as uptitrate beta blockade. 2. Acute kidney injury at the time of admission and Chronic kidney disease, stage IIIB. POA and much improved as of yesterday.. We will follow creatinine and continue to avoid nephrotoxic agents. 3. Polymorphic ventricular tachycardia, stable and POA. Status post ICD implant. This is stable so No other changes for today. The patient is full resuscitation, this is discussed today. He was admitted inpatient status with anticipated length of stay of over 2 nights. Resuscitation Status: CPR: Attempt Resuscitation Jackson Hand MD November 18, 2016 08:45
--- NOTE | 2016-11-18 19:41 | NUR ---
Ambulation/mentation Pt walked with this RN down to the end of the unit and back. No O2 needed. Pt used a walker for extra support. Steady on feet. No c/o SOB or dyspnea. Pt went on 3 more walks throughout the shift with and family members. No issues. Pt A&O throughout the shift. Very pleasant and cooperative with cares.
[2016-11-18] MEDS: Insulin GLARgine 100 Unit/mL Syringe SUBQ SCH (21:22)
[2016-11-18] MEDS ORDERED: Nitroglycerin 2% 1 Gm Ointment TOPICAL ONE (22:54)
[2016-11-19] VITALS (17 sets, daily range): BP systolic 121–164; BP diastolic 59–89; PULSE 57–81; RESP 16–24; O2SAT 89–96
[2016-11-19] MEDS: Sodium Chloride LOK Flush 10 mL Syringe IVFLUSH SCH ×3 (00:57→17:20)
[2016-11-19] MEDS: Nitroglycerin 2% 1 Gm Ointment TOPICAL SCH ×6 (02:37→20:04)
[2016-11-19 03:08] LABS: Mean Corpuscular Hemoglobin 29.5 pg (27.0-35.0); Mean Corpuscular Volume 88.9 fL (81-100)
--- NOTE | 2016-11-19 03:18 | NUR ---
Chest pain/anger/Nitro At approx 2200 pt C/O chest pain radiating down both arms , Ordered Stat EKG, VS, called charge , Gave 2 Mg MS IV, , Contacted Dr. Morillo , Nitro SL and Nitro Paste were ordered : gave Nitro SL Q 5 M x3 to relieve most of the chest pain placed 1 inch nitro paste. Pt has been able to sleep most of the night when not awakened for care. Pt is somewhat combative doesn't want to be disturbed , Dr Morillo was re contacted with progress report, stated that she will pass on the Dr Childers all of what has transpired , will probably recommend Chair Post Machine Operator AM . Pt is SL , on 6 L O2 per NC. Telemetry: Paced in the 80's. in room assisting with ADL . Addendum: 11/19/16 at 0613 by ANDREAS LUGO RN Experienced chest pain while standing at beside to void, describes as pressure that went away as he got back into bed.
[2016-11-19 04:15] LABS: TROPONIN T 0.342 ug/L (0.0-0.011)
[2016-11-19] MEDS: Isosorbide Mononitrate 30 mg ER24 Tablet PO SCH ×2 (07:30→07:43)
[2016-11-19] MEDS: Insulin LISPRO 300 Unit/3 mL Inj SUBQ SCH ×5 (07:55→22:00)
--- NOTE | 2016-11-19 07:55 | NUR ---
Chest Pain Pt c/o 03/30 crushing chest pain, some SOB on NC 6L 96%. BP 152/83. Chest pain throughout the night on and off Nitro 1 inch arlready applied at 0230. 2mg IVP Morphine administered at 0705. Stat EKG ordered and cardiology called. 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 Will continue to monitor.
--- NOTE | 2016-11-19 08:44 | PROG NOTE ---
[address] [address] PROGRESS NOTE PATIENT: KATIE NGUYEN : 1935 MR#: [id number] ADMIT: 11/16/2016 JOB ID: [id number] CARDIOLOGY PROGRESS NOTE: DATE: 11/19/2016 SUBJECTIVE: The patient has had an intermittent, prolonged chest discomfort throughout the night and is ongoing currently. He describes this as identical to his presenting discomfort with a pressure like discomfort radiating into both elbows and up to the ears. He is somewhat arousable and a reluctant historian but denies any dyspnea or pleuritic component to the discomfort. He has been given intermittent doses of nitroglycerin and morphine with intermittent relief. PHYSICAL EXAMINATION: Fairly comfortable appearing elderly male, although hard of hearing and somewhat arousable. HR 73. BP 142/70. O2 saturation 93% on room air. He had a net diuresis yesterday of around 1.1 L although weights are not recorded. Lungs: Slight crackles throughout but without any appreciable wheeze. CV: Distant heart tones with a regular rhythm with frequent premature beats. There are no appreciable murmurs or gallops. There is no obvious JVD. Abdomen: Soft, nondistended, nontender. Extremities: Warm without edema. LABORATORY: White count this morning is 34 with a white count of 7.4. BUN is 27 and a creatinine of 1.6 compared to 25 and 1.5 yesterday. His troponin this morning has continued to decline from 0.396 yesterday, down to 0.342 today. ECG: Shows probable underlying atrially paced rhythm but with frequent PACs, now with wide QRS complexes which most likely reflect ventricular pacing, although pacer spikes are not clearly evident. On the [place] conducted beats, there continues to be borderline inferior ST elevation with lateral ST depression that appears unchanged from his previous ECG. IMPRESSION: 1. Non-ST elevation myocardial infarction, now with recurrent prolonged post infarct angina despite medical therapy. I again discussed with he and his therapeutic strategies including medical management versus cardiac catheterization although with his recurrent chest discomfort appearing to reflect a failure of medical therapy, I have recommended cardiac catheterization, although again emphasizing that there is a risk of renal injury associated with this. The , who has power of business attorney, and speaks for him understands this and both he and she agreed to proceed. I have contacted Dr. Higginbotham who will make arrangements for proceeding with cardiac catheterization sometime this morning. In the meantime, I will advance his topical nitrates for further anginal control. 2. Status post pacemaker. His current underlying rhythm is somewhat unclear and I will have his device interrogated this morning. 3. Acute on chronic renal insufficiency. His creatinine, while slightly higher than yesterday, is still at his normal baseline and improved from admission. Every attempt will be made to minimize contrast nephropathy. same. PLAN: 1. Increase topical nitrates. 2. Proceed with urgent cardiac catheterization by Dr. Higginbotham with further recommendations based on those results. 3. Pacemaker interrogation this morning to assess his underlying rhythm. 4. Continue to track electrolytes and renal function closely postprocedure. TIME: I spent 42 minutes reviewing the patient's record, examining and interviewing the patient and answering he and his 's questions and talking with Dr. Higginbotham.
[2016-11-19] MEDS ORDERED: Heparin 1,000 Unit/mL 10 mL Inj ONE (09:51)
[2016-11-19] MEDS ORDERED: Nitroglycerin 50,000 mcg/250 mL D5W Premix IV ONE (09:51)
[2016-11-19] MEDS ORDERED: Heparin 10,000 Unit/1,000 mL NS Premix IV ONE (09:52)
--- NOTE | 2016-11-19 10:18 | NUR ---
OFF UNIT Pt off unit to labor relations analyst at 1000. at the bedside. Report given to labor relations analyst at bedside. BG this am was 162. Vitals stable, nitro removed, 2 IV's. Will call report to [facility] staff. Hearing aids went with, glasses left at bedside. Addendum: 11/19/16 at 1421 by JERRY HUANG RN Back to unit at 1400. Vitals stable, denies chest discomfort. On bedrest till 1500, plans to eat lunch at that point. BG was 143. Right groin site soft and non tender.
[2016-11-19] MEDS ORDERED: fentaNYL-PF 50 mCg/mL 2 mL Inj ONE (10:27)
--- NOTE | 2016-11-19 14:58 | NUR ---
[facility]/recovery Pt had stable recovery of diagnostic heart cath, VSS and WNL on RA, groin sites soft non tender. Pt updated on plan of care, pt denies chest pain, report called to Elia Mcduffie RN.
--- NOTE | 2016-11-19 19:26 | PCM.PNMED ---
Subjective Date of Service Nov 19, 2016 Subjective Follow for NSTEMI. Patient seen and examined at bedside . No new complaints no chest pain , no shortness of breath, Exam Vital Signs Vital Sign - Last Date Time Temp Pulse Resp B/P Pulse Ox O2 Delivery O2 Flow Rate FiO2 11/19/16 16:48 37.0 67 20 147/72 93 Room Air 11/19/16 14:07 2.00 Intake and Output 11/18/16 11/18/16 11/19/16 Cumulative From/Thru 15:00 23:00 07:00 11/16/16 05:40 - 11/19/16 06:24 Intake Total 520 ml 100 ml 6687 ml Output Total 300 ml 1200 ml 5500 ml Balance 220 ml -1100 ml 1187 ml Intake Oral 520 ml 100 ml 1840 ml IV Total 4847 ml Output Urine Total 300 ml 1200 ml 5500 ml # Voids 4 # Bowel Movements 0 Exam Gen ; Overnight make in bed comfortably. NAD HEENT : THERESE, Sclerae is anicteric Neck : Supple, no JVD , trachea is midline Chest : Normal respiratory effort Lung : Clear bilaterally . No crackles, no wheezing Heart : S1S2, RRR, no lujan; Abdomen : Non tender, non distended. Ext : No cyanosis , no edema , no calf tenderness Neuro : Grossly non focal . IVs and Medications Medications Reviewed: Medications were reviewed in detail Lab and Diagnostics Result Diagram: 11/19/1623411/19/16234 12-lead ECG Sinus rhythm, right bundle branch block. Possible anterolateral ST depressions and Q waves in inferior leads. Assessment & Plan 1. NSTEMI, POA and stable. Troponin stable and trending down.Patient is agreeable today to cardiac catheterization On ASA, Statin BB, and ACEI 2. Acute kidney injury at the time of admission and Chronic kidney disease, stage IIIB. Creatinine 1.6 today. Improved from 2 on admission Start NS @ 75 ml/hr to decrease risk of contrast nephropathy Mucomyst 600 mg PO x 3 doses. BMP in am. Hold lisinopril . 3. Polymorphic ventricular tachycardia, stable and POA. Status post ICD implant. This is stable so No other changes for today. Hemodynamically and clinically stable. Patient underwent cardiac cath today. Official report is pending. He is scheduled back to the crown and bridge dental lab technician for tomorrow for possible angioplasty Resuscitation Status: CPR: Attempt Resuscitation Time spent 35 minutes Rios Martinez MD Nov 19, 2016 19:26
[2016-11-19] MEDS: Acetylcysteine 20% 200 mg/mL 4 mL Inhalation Solution PO SCH (20:20)
[2016-11-19] MEDS: 0.9% Sodium Chloride 1,000 ML IV SCH (20:20)
[2016-11-19] MEDS: Insulin GLARgine 100 Unit/mL Syringe SUBQ SCH ×2 (21:45→21:56)
--- NOTE | 2016-11-19 22:14 | NUR ---
Refused Insulin Pt refused insulin, Bedside Blood sugar 223 , Risks of refusal was explained , pt became angry , demanded to be left alone . WCTM
[2016-11-20] VITALS (12 sets, daily range): BP systolic 125–162; BP diastolic 71–85; PULSE 63–79; RESP 16–20; O2SAT 90–94
[2016-11-20] MEDS: Sodium Chloride LOK Flush 10 mL Syringe IVFLUSH SCH ×4 (00:21→23:57)
[2016-11-20] MEDS: Insulin GLARgine 100 Unit/mL Syringe SUBQ SCH (02:31)
[2016-11-20] MEDS: Nitroglycerin 2% 1 Gm Ointment TOPICAL SCH ×3 (02:38→14:41)
--- NOTE | 2016-11-20 04:45 | NUR ---
Insulin/Tele/Fear Pt consented to taking insulin, , mood improving with rest, seems frustrated by being hospitalized , in room assisting w ADL, 2 L O2 per NC, Groin puncture site CDI,NS @ 75 Ml/hr. NPO for pending Leach Runner procedure in AM Telemetry , Paced 70's,
[2016-11-20] MEDS: 0.9% Sodium Chloride 1,000 ML IV SCH (08:55)
[2016-11-20] MEDS: Acetylcysteine 20% 200 mg/mL 4 mL Inhalation Solution PO SCH ×2 (09:42→21:20)
[2016-11-20] MEDS: Insulin LISPRO 300 Unit/3 mL Inj SUBQ SCH ×4 (09:45→21:23)
--- NOTE | 2016-11-20 12:57 | NUR ---
Chest pain pt reported moderate 5/10 chest pain/pressure, with discomfort of shoulders. pt denies radiating. nitropaste in place. blood pressure elevated. PRN morphine given. will monitor for effctiveness. Addendum: 11/20/16 at 1310 by JUAN VILLANUEVA RN minimal effectiveness with morphine. Elisabet ZHANG in to assist with situation. MD informed of situation. nitroglycerin tablet SL x1 given by Elisabet ZHANG, cutting pain pressure in half. continuing to monitor. Addendum: 11/20/16 at 1757 by JERRY HUANG RN Rechecked on pt in 1 hour and he was resting comfortably in bed. Rechecked pt again around dinner and still chest pain free. Pt stated hes anxious and just wants to get the procedure done. Will continue to monitor.
--- NOTE | 2016-11-20 15:21 | NUR ---
Social Work: Continued Discharge Planning D: Pt discussed in am rounds. Pt is not medically stable for discharge at this time. Pt anticipated to require hospitalizaton until kidney functioning improved. PRECINCT POLICE SERGEANT met with pt at bedside to assess for unmet needs. pt has been on bedrest for the last day due to current cardiac status. Pt states that he has no concerns about his ability to mobilize once allowed to do so. PRECINCT POLICE SERGEANT introduced the idea of possible home health as a possible service MD may request at discharge. Pt states that he does not want home health and states that he has a small apartment and uses a walker and cane occasionally. He declines any other needs at this time. A: Pt who is I at baseline. P: PRECINCT POLICE SERGEANT to continue to follow; Anticipate pt to discharge home when medically stable. ENRIQUE Lundberg
--- NOTE | 2016-11-20 15:33 | PCM.PNMED ---
Subjective Date of Service Nov 20, 2016 Subjective Follow up for NSTEMI. Creatinine slightly up today . Angioplasty on hold Some chest pain today relieved by nitroglycerine Exam Vital Signs Vital Sign - Last Date Time Temp Pulse Resp B/P Pulse Ox O2 Delivery O2 Flow Rate FiO2 11/20/16 13:11 71 138/71 92 Nasal Cannula 4.00 11/20/16 11:59 36.4 20 Intake and Output 11/19/16 11/19/16 11/20/16 Cumulative From/Thru 15:00 23:00 07:00 11/16/16 05:40 - 11/20/16 06:11 Intake Total 671 ml 1071 ml 8429 ml Output Total 400 ml 850 ml 350 ml 7100 ml Balance -400 ml -179 ml 721 ml 1329 ml Intake Oral 200 ml 400 ml 2440 ml IV Total 471 ml 671 ml 5989 ml Output Urine Total 400 ml 850 ml 350 ml 7100 ml # Voids 1 5 # Bowel Movements 0 0 Exam Gen ; NAD in bed comfortably HEENT : THERESE, Sclerae is anicteric Neck : Supple, no JVD , trachea is midline , no cervical lymphadenopathy Chest : Normal respiratory effort , no use of accessory muscle Lung : Clear bilaterally . No crackles, no wheezing Heart : S1S2, RRR, no gallop Abdomen : Non tender, non distended. Ext : No cyanosis , no edema , no calf tenderness Neuro : Grossly non focal .AAo x 3 IVs and Medications Medications Reviewed: Medications were reviewed in detail Lab and Diagnostics Result Diagram: 11/19/1623411/20/16236 12-lead ECG Sinus rhythm, right bundle branch block. Possible anterolateral ST depressions and Q waves in inferior leads. Assessment & Plan 1. NSTEMI, POA and stable. Troponin stable and trending down.Patient is agreeable today to cardiac catheterization On ASA, Statin BB, and ACEI 2. Acute kidney injury at the time of admission and Chronic kidney disease, stage IIIB. Creatinine slightly up today to 1.78 today. On NS @ 75 ml/hr to decrease risk of contrast nephropathy Mucomyst 600 mg PO x 3 doses given. Repeat BMP in am. lisinopril on hold . 3. Polymorphic ventricular tachycardia, stable and POA. Status post ICD implant. This is stable so No other changes for today. Hemodynamically and clinically stable. Cardiac cath re-scheduled to Wednesday in view of worsening creatinine level. Case discussed with cardiology Resuscitation Status: CPR: Attempt Resuscitation Time spent 25 minutes Rios Martinez MD Nov 20, 2016 15:33
[2016-11-21] VITALS (8 sets, daily range): BP systolic 115–152; BP diastolic 64–74; PULSE 50–77; RESP 17–18; O2SAT 89–94
--- NOTE | 2016-11-21 04:08 | NUR ---
O2 Sats / Left Leg Numbness / HTN/ Groin site/ Tele No c/o SOB, but Pt desats during the night down to 89-90% on RA. Pt placed on O2 @ 3L NC, sats improved to 94%. Pt c/o left leg numbness, Pt feels pressure on leg when touched but sensation is dull, able to feel cold sensation and wetness when touched with alcohol swab. Pedal pulses palpable. Leg is warm to the touch and Pt is able to move his leg and wiggle all of his toes on the left side. Pt mildly hypertensive tonight with SBPs in the 140-150s. Right groin site bio-occlusive dressing intact. No hematoma or active signs of bleeding. Pedal pulses palpable. No c/o chest pain, Tele 100% A-Paced in the 70s per [employer] Technical Lead Senior Developer. in room at bedside all night.
[2016-11-21] MEDS: Isosorbide Mononitrate 30 mg ER24 Tablet PO SCH (08:08)
[2016-11-21] MEDS: Sodium Chloride LOK Flush 10 mL Syringe IVFLUSH SCH ×2 (08:09→17:28)
[2016-11-21] MEDS: Insulin LISPRO 300 Unit/3 mL Inj SUBQ SCH ×4 (08:23→21:52)
--- NOTE | 2016-11-21 14:43 | PCM.PNMED ---
Subjective Date of Service Nov 21, 2016 Subjective Patent seen and examined at bedside . No significant interval changes. No new complaints No chest pain, no shortness of breath Exam Vital Signs Vital Sign - Last Date Time Temp Pulse Resp B/P Pulse Ox O2 Delivery O2 Flow Rate FiO2 11/21/16 12:06 36.7 50 18 120/65 92 Nasal Cannula 1.50 Intake and Output 11/20/16 11/20/16 11/21/16 Cumulative From/Thru 15:00 23:00 07:00 11/16/16 05:40 - 11/21/16 06:42 Intake Total 944 ml 650 ml 06962 ml Output Total 950 ml 1175 ml 9225 ml Balance -6 ml -525 ml 798 ml Intake Oral 700 ml 650 ml 3790 ml IV Total 244 ml 6233 ml Output Urine Total 950 ml 1175 ml 9225 ml # Voids 5 # Bowel Movements 0 0 Exam Gen : Well nourished male. in bed comfortably. Neck : Supple,no JVD, trachea is midline. Chest : No deformities . Normal respiratory effort Lung : Clear bilaterally, no crackles, no wheezing Heart : S1S2, irregular, no murmur Abdomen : Soft, nt , no distended Ext : No edema, no cyanosis Skin : Intact, no ulcers, no calf tenderness Neuro : non focal IVs and Medications Medications Reviewed: Medications were reviewed in detail Lab and Diagnostics Result Diagram: 11/19/16 0235 11/21/16 021 12-lead ECG Sinus rhythm, right bundle branch block. Possible anterolateral ST depressions and Q waves in inferior leads. Assessment & Plan 1. NSTEMI, POA and stable. Troponin stable and trending down.Patient is agreeable today to cardiac catheterization On ASA, Statin BB, and ACEI 2. Acute kidney injury at the time of admission and Chronic kidney disease, stage IIIB. Creatinine slightly up today to 1.4 today. On NS @ 75 ml/hr to decrease risk of contrast nephropathy Mucomyst 600 mg PO x 3 doses given. Repeat BMP in am. lisinopril on hold . 3. Polymorphic ventricular tachycardia, stable and POA. Status post ICD implant. This is stable so No other changes for today. Hemodynamically and clinically stable. Cardiac cath re-scheduled to Wednesday Creatinine level improve to 1.4 today. Continue IVF , monitor renal function and electrolytes VTE Prophylaxis: Sub-Q Heparin (Unfractionated) Resuscitation Status: CPR: Attempt Resuscitation Time spent 25 minutes Rios Martinez MD Nov 21, 2016 14:43
--- NOTE | 2016-11-21 15:33 | NUR ---
Left leg Numbness Pt c/o left leg numbness upon assessment this am. Pt has mentioned to me during this stay about his numbness in his left leg but this is different than his normal because usually he is numb from the knee down. Now the numbness starts in the left hip and goes down. Has good pedal pulses, can feel me touch his leg, not warm to touch, no signs of swelling, has full range of motion. Will mention to MD to see if he wants further testing.
[2016-11-21] MEDS: Insulin GLARgine 100 Unit/mL Syringe SUBQ SCH (21:53)
[2016-11-22] VITALS (10 sets, daily range): BP systolic 129–150; BP diastolic 69–80; PULSE 61–77; RESP 16–20; O2SAT 91–98
[2016-11-22] MEDS: Sodium Chloride LOK Flush 10 mL Syringe IVFLUSH SCH ×4 (01:05→23:10)
--- NOTE | 2016-11-22 06:07 | NUR ---
Left leg/tele/pain Pt noted to have decreased numbness and tingling to LT leg at this time. Pedal pulses palpable. Pt denies pain/discomfort, shortness of breath and chest pain. Pt ROSA and able to ambulate with a steady gait to the bathroom using 1P SBA for safety. VSS. Telemetry A paced 69-70 with PA and PVCs per feed research technician. care ongoing.
[2016-11-22] MEDS: Isosorbide Mononitrate 30 mg ER24 Tablet PO SCH (08:31)
[2016-11-22] MEDS: Insulin LISPRO 300 Unit/3 mL Inj SUBQ SCH ×4 (08:31→20:18)
--- NOTE | 2016-11-22 15:02 | PCM.PNMED ---
Subjective Date of Service Nov 22, 2016 Subjective Patient seen and examined at bedside No new complaints Creatinine slightly up today Exam Vital Signs Vital Sign - Last Date Time Temp Pulse Resp B/P Pulse Ox O2 Delivery O2 Flow Rate FiO2 11/22/16 12:44 36.5 62 18 132/74 94 Room Air 11/22/16 08:20 2.00 Intake and Output 11/21/16 11/21/16 11/22/16 Cumulative From/Thru 15:00 23:00 07:00 11/16/16 05:40 - 11/22/16 06:46 Intake Total 1020 ml 400 ml 73508 ml Output Total 1050 ml 250 ml 13562 ml Balance -30 ml 150 ml 918 ml Intake Oral 1020 ml 400 ml 5210 ml IV Total 6233 ml Output Urine Total 1050 ml 250 ml 97575 ml # Voids 4 1 10 # Bowel Movements 1 1 Exam Gen ; Sitting in chair comfortably . Family by bedside HEENT : THERESE, Sclerae is anicteric Neck : Supple, no JVD , no thyromegaly Chest : Normal respiratory effort Lung : Clear bilaterally . No crackles, no wheezing Heart : S1S2, RRR, no gallop Abdomen : benign . BS normal all quadrants Ext : No cyanosis , no edema Neuro : AAO x3 . non focal IVs and Medications Medications Reviewed: Medications were reviewed in detail Lab and Diagnostics Result Diagram: 11/19/16 0235 11/22/16 0200 12-lead ECG Sinus rhythm, right bundle branch block. Possible anterolateral ST depressions and Q waves in inferior leads. Assessment & Plan 1. NSTEMI, POA and stable. Troponin stable and trending down.Patient is agreeable today to cardiac catheterization On ASA, Statin BB, and ACEI 2. Acute kidney injury at the time of admission and Chronic kidney disease, stage IIIB. Creatinine slightly up today to 1.6 today. NS @ 50 ml/hr . Repeat BMP in am. lisinopril on hold . 3. Polymorphic ventricular tachycardia, stable and POA. Status post ICD implant. This is stable so No other changes for today. Hemodynamically and clinically stable. Cardiac cath re-scheduled for tomorrow Creatinine sligtly up today to 1.6 but about baseline still. . Will start NS @ 50 ml/hr and obtain bmp in am. Patient with risk of worsening renal function post contrast exposure . That was discussed with him in detail with him and his . They both in agree to proceed VTE Prophylaxis: Sub-Q Heparin (Unfractionated) Resuscitation Status: CPR: Attempt Resuscitation Time spent 25 minutes Rios Martinez MD Nov 22, 2016 15:02
[2016-11-22] MEDS: 0.9% Sodium Chloride 1,000 ML IV SCH (15:26)
[2016-11-22] MEDS: Insulin GLARgine 100 Unit/mL Syringe SUBQ SCH (20:18)
--- NOTE | 2016-11-22 21:40 | NUR ---
BLOOD SUGARS/GROIN SITE Pt had 250 BS, gave 2 units insulin along with his 20 units Lantus. Pt had steady gait to the bathroom, VSS, no pain, groin site shows no sign of hematoma. No other issues noted at this time.
[2016-11-23] VITALS (14 sets, daily range): BP systolic 115–153; BP diastolic 62–91; PULSE 56–89; RESP 18–22; O2SAT 87–96
--- NOTE | 2016-11-23 04:03 | NUR ---
LABS Pt agitated and refused AM lab draw, pt and family member yelling at rags laborer about the gambreler helper labs. Labs rescheduled for 7am, pt was still agitated for last vitals check, VSS, pt wishes to be left along the remainder of the morning. No other issues noted at this time.
[2016-11-23] MEDS ORDERED: Heparin 1,000 Units/500 mL NS Premix IV ONE (06:32)
[2016-11-23] MEDS ORDERED: Heparin 10,000 Unit/1,000 mL NS Premix IV ONE (06:33)
[2016-11-23] MEDS ORDERED: Heparin 1,000 Unit/mL 10 mL Inj ONE (06:33)
[2016-11-23] MEDS ORDERED: Nitroglycerin 50,000 mcg/250 mL D5W Premix IV ONE (06:33)
--- NOTE | 2016-11-23 07:19 | NUR ---
To medical laboratory technologist patient left for medical laboratory technologist at 0705hrs
[2016-11-23] MEDS ORDERED: fentaNYL-PF 50 mCg/mL 2 mL Inj ONE (07:25)
[2016-11-23] MEDS ORDERED: Atropine 1 mg/10 mL (Code) Syringe ONE (07:58)
[2016-11-23] MEDS: Insulin LISPRO 300 Unit/3 mL Inj SUBQ SCH ×4 (08:00→21:42)
[2016-11-23] MEDS: Sodium Chloride LOK Flush 10 mL Syringe IVFLUSH SCH ×2 (08:30→16:17)
--- NOTE | 2016-11-23 08:36 | DI95 ---
[address] [address] INTERVENTIONAL CARDIAC CATHETERIZATION PATIENT: KATIE NGUYEN : 1935 MR#: [id number] ADMIT: 11/16/2016 JOB ID: [id number] DATE OF SERVICE: 11/23/2016 PROCEDURE: Percutaneous intervention on the saphenous vein graft to diagonal. INDICATION: [id number] FL. PROCEDURAL DETAILS: The reader and coders are referred to the procedure log for complete details. Briefly, this was done via right femoral approach using a 7-Estonian system. INTERVENTIONAL DETAILS: A Runthrough wire was used to cross this lesion. It was pre-dilated with a 2.0 balloon and then stented with a 2.5 x 15 mm Xience drug-coated stent. Echo revealed excellent angiographic results. At this point, a brief attempt was made to recanalize this PDA which was totally occluded past the insertion of the saphenous vein graft. The same Malgorzata right catheter was used to engage the SVG to RCA. We tried to open this chronic total occlusion. However, we were unsuccessful. There is a small, less than 0.5 mm branch that comes off at the site of flush occlusion. The wire was selected for that inferior vessel. A second wire was then used, leaving the 1st one in place. Despite that, we could not direct the wire into the PDA. Given the patient's renal insufficiency, I felt it would be safer to abort the procedure at that time. SUMMARY: In summary, successful intervention of the SVG to the diagonal. The patient is advised to have antiplatelet therapy for at least six months post procedure.
--- NOTE | 2016-11-23 08:48 | CS94 ---
[address] [address] DIAGNOSTIC CARDIAC CATHETERIZATION PATIENT: KATIE NGUYEN : 1935 MR#: [id number] ADMIT: 11/16/2016 JOB ID: [id number] SERVICE DATE: 11/19/2016 PROCEDURE: 1. Selective right and left coronary angiography. 2. Left heart catheterization. 3. Saphenous vein angiography. 4. JONES angiography. INDICATION: Non-ST elevation NV. Congestive heart failure. PROCEDURAL DETAILS: The reader and the coders are referred to the procedure log for complete details. Briefly, right femoral approach, a 6-Gambian system. ANGIOGRAPHIC FINDINGS: 1. Moderate calcification of the left coronary is noted on fluoroscopy. 2. Left main: Diffuse 20-30% disease. No critical stenosis. 3. LAD: Is totally occluded past the take-off of the first major diagonal. It is a diffusely diseased vessel with multiple tandem lesions ranging from 80-90%. 4. Circumflex: Is a moderate caliber vessel. It gives off a single obtuse marginal branch. The ramus and the obtuse marginal branches are subtotally occluded at the origin. 5. Right coronary artery: Is totally occluded past the takeoff of the conus branch. It is a flush occlusion with bridging collaterals. Intracoronary collaterals fill the distal vessel as well. This appears to have progressed since his last angiogram in 2009. 6. Saphenous vein graft to the ramus is occluded. Presumably, there was a graft to the SVG as well. This graft appears to be occluded as well. 7. Saphenous vein graft to the right coronary artery is patent. It has mild disease, about 40% in its distal segment. After the anastomosis to the PDA, the graft fills the right coronary retrogradely as well as the posterolateral branches. However, the ongoing PDA itself is totally occluded. 8. JONSE to LAD is patent. 9. SVG to diagonal has a tight 90% lesion in its proximal segment. 10. Left heart catheterization revealed an LVEDP of 25. No gradient upon pullback. 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 There has been significant interim disease progression. Given his moderate renal insufficiency, he will be brought back at a subsequent date for an intervention. I would try to recanalize this distal PDA if possible. I would also proceed with an intervention on the saphenous vein graft to the diagonal.
[2016-11-23] MEDS ORDERED: Ondansetron 2 mg/mL 2 mL Inj IVPUSH PRN (09:55)
[2016-11-23] MEDS ORDERED: Atropine 1 mg/10 mL (Code) Syringe IVPUSH PRN (09:55)
[2016-11-23] MEDS ORDERED: 0.9% Sodium Chloride 250 ML BOLUS IV PRN (09:55)
[2016-11-23] MEDS ORDERED: SODIUM CHLORIDE IV SCH (09:55)
[2016-11-23] MEDS ORDERED: Sodium Chloride LOK Flush 10 mL Syringe IVFLUSH PRN (09:55)
--- NOTE | 2016-11-23 10:37 | NUR ---
patient returned from labor arbitrator hearing office at 1030hrs. denies CP/SOB, N/V. right groin star close. no hematoma, distal pulses palpable. patient does report new numbness to upper left thigh. stated that it started yesterday. 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
[2016-11-23] MEDS: 0.9% Sodium Chloride 1,000 ML IV SCH (11:05)
[2016-11-23] MEDS: Isosorbide Mononitrate 30 mg ER24 Tablet PO SCH (11:30)
--- NOTE | 2016-11-23 15:01 | PCM.PNMED ---
Subjective Date of Service Nov 23, 2016 Subjective No interval changes. For cardiac cath today Creatinine overall about the same Exam Vital Signs Vital Sign - Last Date Time Temp Pulse Resp B/P Pulse Ox O2 Delivery O2 Flow Rate FiO2 11/23/16 11:22 36.3 67 18 153/84 96 Nasal Cannula 2.00 Intake and Output 11/22/16 11/22/16 11/23/16 Cumulative From/Thru 15:00 23:00 07:00 11/16/16 05:40 - 11/23/16 06:36 Intake Total 840 ml 830 ml 27484 ml Output Total 775 ml 1380 ml 87213 ml Balance 65 ml -550 ml 433 ml Intake Oral 840 ml 200 ml 6250 ml IV Total 630 ml 6863 ml Output Urine Total 775 ml 1380 ml 33673 ml # Voids 3 13 # Bowel Movements 1 Exam Gen ; NAD . HEENT : THERESE, Sclerae is anicteric Neck : Supple, no JVD , trachea is midline Chest : Normal respiratory effort Lung : Clear bilaterally . No crackles, no wheezing Heart : S1S2, RRR, no lujan; Abdomen : Non tender, non distended. Ext : No cyanosis , no edema , no calf tenderness Neuro : AAO x 3. non focal . IVs and Medications Medications Reviewed: Medications were reviewed in detail Lab and Diagnostics Result Diagram: 11/19/16 0235 11/23/16 0656 12-lead ECG Sinus rhythm, right bundle branch block. Possible anterolateral ST depressions and Q waves in inferior leads. Assessment & Plan 1. NSTEMI, POA and stable. Troponin stable and trending down. On ASA, Statin BB, and ACEI 2. Acute kidney injury at the time of admission and Chronic kidney disease, stage IIIB. 3. Polymorphic ventricular tachycardia, stable and POA. Status post ICD implant. T Hemodynamically and clinically stable. Cardiac cath for today I will keep him on normal saline at 75 ml/hr to decrease risk of contrast induced nephropathy and repeat BMP aung . Creatinine sligtly up today to 1.6 Hopefully home tomorrow VTE Prophylaxis: Sub-Q Heparin (Unfractionated) Resuscitation Status: CPR: Attempt Resuscitation Time spent 25 minutes Attending Statement Signed for Dr. Rios Martinez in his absence. Rios Martinez MD Nov 23, 2016 15:01 Rogerio Chapa MD Dec 08, 2016 07:09
--- NOTE | 2016-11-23 17:52 | NUR ---
Post CVL patient denies CP/SOB. cardiac cath earlier this am with a right groin puncture. star close post procedure. right groin site soft with palpable pulses distally. denies pain or discomfort to site. Educated patient regarding post care; self splinting groin with move, lifting, bending bearing down, cough and sneezing. patient verbalized understanding. he will need reinforcement at discharge. continue to monitor.
[2016-11-23] MEDS: Insulin GLARgine 100 Unit/mL Syringe SUBQ SCH (21:41)
[2016-11-24] VITALS (10 sets, daily range): BP systolic 109–142; BP diastolic 61–80; PULSE 55–75; RESP 17–20; O2SAT 90–94
[2016-11-24] MEDS: Sodium Chloride LOK Flush 10 mL Syringe IVFLUSH SCH ×4 (00:30→23:39)
--- NOTE | 2016-11-24 05:34 | NUR ---
no chest pain/rest pt denies any chest pain this whole shift, pt reports feeling a lot better after heart cath, denies any SOB, pts right groin with no change, soft non-tender, pt getting good sleep this shift. tele A-paced
[2016-11-24] MEDS: 0.9% Sodium Chloride 1,000 ML IV SCH (07:05)
[2016-11-24] MEDS: Isosorbide Mononitrate 30 mg ER24 Tablet PO SCH (08:51)
[2016-11-24] MEDS: Insulin LISPRO 300 Unit/3 mL Inj SUBQ SCH ×4 (08:51→20:56)
--- NOTE | 2016-11-24 09:16 | NUR ---
LUKAS signed @ 466NM
[2016-11-24] MEDS ORDERED: Insulin GLARgine 100 Unit/mL Syringe SUBQ ONE (11:10)
--- NOTE | 2016-11-24 11:12 | PCM.PNMED ---
Subjective Date of Service Nov 24, 2016 Subjective He is doing well. No chest pain. No dyspnea. No nausea. He denies any abdominal pain or leg edema. No fevers or chills. He is urinating without difficulty. No overnight events Exam Vital Signs Vital Sign - Last Date Time Temp Pulse Resp B/P Pulse Ox O2 Delivery O2 Flow Rate FiO2 11/24/16 09:20 74 11/24/16 08:07 36.6 18 141/61 94 Room Air 11/23/16 11:22 2.00 Intake and Output 11/23/16 11/23/16 11/24/16 Cumulative From/Thru 15:00 23:00 07:00 11/16/16 05:40 - 11/24/16 06:39 Intake Total 150 ml 669 ml 400 ml 28520 ml Output Total 600 ml 350 ml 700 ml 58451 ml Balance -450 ml 319 ml -300 ml 2 ml Intake Oral 400 ml 400 ml 7050 ml IV Total 150 ml 269 ml 7282 ml Output Urine Total 600 ml 350 ml 700 ml 97583 ml # Voids 1 14 # Bowel Movements 0 1 Exam Alert and oriented -3, no distress. Fluent speech Anicteric sclera. Lungs are clear with normal rate and effort Heart is regular without murmur gallop or rub Abdomen soft nontender, flat Extremities are free of edema. Skin is free of rash or lesions. Hearing impaired IVs and Medications Medications Reviewed: Medications were reviewed in detail Lab and Diagnostics Result Diagram: 11/19/16 0235 11/24/16 0515 12-lead ECG Sinus rhythm, right bundle branch block. Possible anterolateral ST depressions and Q waves in inferior leads. Assessment & Plan 1. NSTEMI, POA and improved. The patient is status post PCI with successful opening of the SVG. He has total occlusion of his PDA with collateralization. From now on we will be optimizing his medical therapy which she is tolerating without difficulty. 2. Acute kidney injury at the time of admission , resolved. 3. Chronic kidney disease, stage IIIB. POA and much improved as of yesterday.. We will follow creatinine and continue to avoid nephrotoxic agents. Continue IV penicillin at 50 per hour and follow his creatinine for 1 additional day. If stable will plan on discharge tomorrow with ongoing medical therapy. 4. Polymorphic ventricular tachycardia, stable and POA. Status post ICD implant. This is stable 5. DM 2, uncontrolled. The patient has hyperglycemia. We will add an additional 10 of Lantus now and increase at bedtime Lantus to 25. The patient is full resuscitation, this is discussed today. He was admitted inpatient status with anticipated length of stay of over 2 nights. Resuscitation Status: CPR: Attempt Resuscitation Despite discharge tomorrow, Wednesday, November 25. We will also arrange for outpatient diabetes education per the request and initiate outpatient follow-up with nephrology. His last nephrology Department was 5 years ago. VTE Prophylaxis: Sub-Q Heparin (Unfractionated) Resuscitation Status: CPR: Attempt Resuscitation Jackson Hand MD Nov 24, 2016 11:12
--- NOTE | 2016-11-24 18:39 | NUR ---
Blood sugar/Diarrhea Cardiac: Pt denies CP, tele A-paced 60s. Resp: Pt denies SOB, SPO2 94% on RA. GI/: Pt denies N/V, reports diarrhea stating, "I had to do the green apple two step". Pt reports that "anti-heartburn" pills give him diarrhea. Poor appetite mostly due to dislike of hospital food. Gave pt and his some resources for diabetic nutrition. Requested diabetic consult in report. Pt voices frustration that he cannot keep his sugars under control at home no matter what he does. Blood sugars elevated at noon and at dinner, 270-280s. Neuro: A&Ox3, ROSA.
[2016-11-24] MEDS ORDERED: Insulin GLARgine 100 Unit/mL Syringe SUBQ SCH (21:00)
[2016-11-25 03:30] VITALS: BP 110/65; PULSE 75; RESP 18; O2SAT 94
--- NOTE | 2016-11-25 05:32 | NUR ---
depression pt very sleeping when asked how come he stated he was very depressed, sat and talked with pt for a while. he expressed his concerns and battles, it seemed pt enjoyed being able to vent a little, he also told fishing and hunting stories. pt thanked this RN for listening and stating he felt better. offered some services pt declining all. pt sleeping most of the night except to void. each time this RN encouraged pt to drink some water to help his creatinine
[2016-11-25 07:45] VITALS: BP 140/72; PULSE 63; RESP 16; O2SAT 95
[2016-11-25] MEDS: Isosorbide Mononitrate 30 mg ER24 Tablet PO SCH (07:57)
[2016-11-25] MEDS: Sodium Chloride LOK Flush 10 mL Syringe IVFLUSH SCH (07:58)
[2016-11-25] MEDS: Insulin LISPRO 300 Unit/3 mL Inj SUBQ SCH (08:01)
--- NOTE | 2016-11-25 10:18 | PCM.DIMED ---
Discharge Instructions Date of Service Nov 25, 2016 Dates of Hospitalization November 16, 2016 at 05:44 Discharge Diagnosis Discharge Diagnosis 1. NSTEMI, Improved. 2. Acute kidney injury at the time of admission , resolved. 3. Chronic kidney disease, stage IIIB. Stable. 4. Polymorphic ventricular tachycardia, stable . 5. DM 2, stable. Diet Discharge Diet: Low fat, Low Sodium, Heart Healthy Activity Discharge Activity: Limited until seen by PCP Call your provider Call your provider for: Shortness of breath, Chest pain Patient Instructions Follow-up Provider: Tammy Briggs MD Follow-up with PCP in: 1 week Provider: Ziyad Mccallum MD Follow-up in: 1 week Jackson Hand MD Nov 25, 2016 10:18
[2016-11-25] MEDS ORDERED: ISOS30TA4 PO (10:21)
[2016-11-25] MEDS ORDERED: CLOP75TA28 PO (10:21)
[2016-11-25] MEDS ORDERED: METO25TA6 PO (10:21)
[2016-11-25] MEDS ORDERED: ROSU5TAB PO (10:21)
[2016-11-25] MEDS ORDERED: NITR0.4T6 SL (10:21)
--- NOTE | 2016-11-25 10:32 | PCM.DC.MED ---
Discharge Summary Date of Service Nov 25, 2016 Dates of Hospitalization Date of Hospital Admission November 16, 2016 at 05:44 Date of Discharge: Nov 25, 2016 Providers: Admitting Physician: Vandana Nava DO Primary Care Physician: Tammy Briggs MD Attending Physician: Vandana Nava DO Diagnosis at Time of Discharge Diagnosis at Time of Discharge 1. NSTEMI, Improved. 2. Acute kidney injury at the time of admission , resolved. 3. Chronic kidney disease, stage IIIB. Stable. 4. Polymorphic ventricular tachycardia, stable . 5. DM 2, stable. Consultations Cardiology, and Dr. Childers Procedures ECG 12 Lead Sinus rhythm, right bundle branch block. Possible anterolateral ST depressions and Q waves in inferior leads. Cardiac Echo Impression Interpretation Summary 1) Upper normal left ventricular thickness with normal size and normal systolic function (EF 55-60%). 2) Mid inferior wall is hypokinetic. 3) Normal right ventricular size with borderline reduced function. Pacemaker lead visualized in the right ventricle. 4) No significant valvular abnormalities present. 5) Compared to the Echo done 05/19/2016, mid inferior wall hypokinesis is new on today's study. Invasive Procedures PROCEDURE: Percutaneous intervention on the saphenous vein graft to diagonal. INDICATION: [id number] HI. PROCEDURAL DETAILS: The reader and coders are referred to the procedure log for complete details. Briefly, this was done via right femoral approach using a 7-[place] system. INTERVENTIONAL DETAILS: A Runthrough wire was used to cross this lesion. It was pre-dilated with a 2.0 balloon and then stented with a 2.5 x 15 mm Xience drug-coated stent. Echo revealed excellent angiographic results. At this point, a brief attempt was made to recanalize this PDA which was totally occluded past the insertion of the saphenous vein graft. The same Malgorzata right catheter was used to engage the SVG to RCA. We tried to open this chronic total occlusion. However, we were unsuccessful. There is a small, less than 0.5 mm branch that comes off at the site of flush occlusion. The wire was selected for that inferior vessel. A second wire was then used, leaving the 1st one in place. Despite that, we could not direct the wire into the PDA. Given the patient's renal insufficiency, I felt it would be safer to abort the procedure at that time. SUMMARY: In summary, successful intervention of the SVG to the diagonal. The patient is advised to have antiplatelet therapy for at least six months post procedure. David Higginbotham MD 11/23/16 0805 SERVICE DATE: 11/19/2016 PROCEDURE: 1. Selective right and left coronary angiography. 2. Left heart catheterization. 3. Saphenous vein angiography. 4. JONES angiography. INDICATION: Non-ST elevation HI. Congestive heart failure. PROCEDURAL DETAILS: The reader and the coders are referred to the procedure log for complete details. Briefly, right femoral approach, a 6-[place] system. ANGIOGRAPHIC FINDINGS: 1. Moderate calcification of the left coronary is noted on fluoroscopy. 2. Left main: Diffuse 20-30% disease. No critical stenosis. 3. LAD: Is totally occluded past the take-off of the first major diagonal. It is a diffusely diseased vessel with multiple tandem lesions ranging from 80-90%. 4. Circumflex: Is a moderate caliber vessel. It gives off a single obtuse marginal branch. The ramus and the obtuse marginal branches are subtotally occluded at the origin. 5. Right coronary artery: Is totally occluded past the takeoff of the conus branch. It is a flush occlusion with bridging collaterals. Intracoronary collaterals fill the distal vessel as well. This appears to have progressed since his last angiogram in 2009. 6. Saphenous vein graft to the ramus is occluded. Presumably, there was a graft to the SVG as well. This graft appears to be occluded as well. 7. Saphenous vein graft to the right coronary artery is patent. It has mild disease, about 40% in its distal segment. After the anastomosis to the PDA, the graft fills the right coronary retrogradely as well as the posterolateral branches. However, the ongoing PDA itself is totally occluded. 8. JONES to LAD is patent. 9. SVG to diagonal has a tight 90% lesion in its proximal segment. 10. Left heart catheterization revealed an LVEDP of 25. No gradient upon pullback. 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 There has been significant interim disease progression. Given his moderate renal insufficiency, he will be brought back at a subsequent date for an intervention. I would try to recanalize this distal PDA if possible. I would also proceed with an intervention on the saphenous vein graft to the diagonal. David Higginbotham MD 11/23/16 0815 Report status: Draft Transcribed by: LILO 11/23/16 0848 REPORT#: [id number] cc: Tammy Briggs MD; David Higginbotham MD Brief History Mr. Montoya is an 81-yr old man with a history of CAD and prior 5-vessel AC Bypass surgery in 2009. He had polymorphic VT around that time although his grafts remained patent. He received a dual chamber ICD in 2009 and it has continue to perform normally with no detections of sustained since implant. Last ICD check was on 10/19/16; leads were good and battery remaining longevity est. was 2.9 yrs. Mr. Montoya also has hx of diabetes, hypertension and dyslipidemia. Starting at least a year ago, he has not been able to make the round trip to his mailbox without resting at the mailbox. Symptoms have been exertional dyspnea a fatigue. In recent weeks be began having right shoulder and arm discomfort with exertion. He and his family went RV camping this weekend at [facility]. His says he has been very inactive at home and spend most of his time in his recliner then sleeps 10 hrs at night. He could not rest well at the campground and has right arm pain which was continuous. Wednesday night he took full doses of Tylenol but could not get relief. His discomfort was from epigastrum to clavicles and went down both arm to his fingers. He finally took NTG with definite improvement. With this, decision was clear to him and his that they needed to head to [facility] which was some 45 miles away. He took 2 more SL NTGs each 10 min and had positive response but it was not until he was in ED and NTG paste was applied that he finally had good relief from pain. Mr. Montoya was transferred to [facility]. Hospital Course 1. NSTEMI, POA and improved. The patient is status post PCI with successful opening of the SVG. He has total occlusion of his PDA with collateralization. From now on we will be optimizing his medical therapy which she is tolerating without difficulty. The patient was treated medically including upper and drip. The patient was seen by cardiology and ultimately the risks and benefits of coronary angiogram versus his chronic kidney disease and risk of AK I were weighed. Ultimately he was taken for angiogram and found to have a totally occluded PDA graft as well as a stenosed saphenous graft. He was taken back a second time to the cath lab technologist for intervention on the SVG graft which was opened up successfully. Creatinine remained stable and affect is down 1.53 on the day of discharge. 2. Acute kidney injury at the time of admission , resolved. He initially had evidence of AK but this resolved with gentle hydration and avoidance of nephrotoxic agents. 3. Chronic kidney disease, stage IIIB. POA and much improved as of yesterday.. We will follow creatinine and continue to avoid nephrotoxic agents. Continue IV penicillin at 50 per hour and follow his creatinine for 1 additional day. If stable will plan on discharge tomorrow with ongoing medical therapy. 4. Polymorphic ventricular tachycardia, stable and POA. Status post ICD implant. This is stable This was not active during hospitalization. 5. DM 2, uncontrolled. The patient has hyperglycemia. We will add an additional 10 of Lantus now and increase at bedtime Lantus to 25. His blood sugars required some titration of insulin while in the hospital. But this was adequately controlled. The patient is full resuscitation, this is discussed today. Exam Vital Signs (Last) Date Time Temp Pulse Resp B/P Pulse Ox O2 Delivery O2 Flow Rate FiO2 11/25/16 07:45 36.7 63 16 140/72 95 Room Air 11/23/16 11:22 2.00 Exam Patient was seen and examined on the day of discharge Test 11/16/16 06:17 11/16/16 08:58 11/16/16 15:23 11/17/16 05:55 Neutrophils (%) (Auto) 61.9% (40-74) Lymphocytes (%) (Auto) 23.8% (14-46) Monocytes (%) (Auto) 8.2% (4-12) Eosinophils (%) (Auto) 5.1% (0-5) Basophils (%) (Auto) 0.6% (0-3) Prothrombin Time 10.2sec (8.1-12.5) Prothromb Time International Ratio 0.95ratio Hemoglobin A1c 8.8% (4.8-5.6) Total Bilirubin 0.3mg/dL (0.0-1.2) Aspartate Amino Transf (AST/SGOT) 26U/L (0-50) Alanine Aminotransferase (ALT/SGPT) 19U/L (0-44) Alkaline Phosphatase 58U/L (25-160) Total Protein 6.4g/dL (6.4-8.4) Albumin 3.7g/dL (3.4-5.0) Triglycerides Level 212mg/dL (0-149) Cholesterol Level 207mg/dL (100-199) LDL Cholesterol, Calculated 137.600mg/dL (0-99) VLDL Cholesterol 42.400mg/dL HDL Cholesterol 27mg/dL (>39) Cholesterol/HDL Ratio 7.67 (0.0-4.4) Thyroid Stimulating Hormone (TSH) 2.660uIU/mL (0.450-4.500) Total Creatine Kinase 221U/L (21-232) Creatine Kinase MB 19.0ng/mL (0.0-10.4) Creatine Kinase MB % 8.6% (0.0-5.0) Urine Color Yellow (YELLOW) Urine Appearance Clear (CLEAR,HAZY) Urine pH 5.5 (5.0-8.0) Urine Specific Mather 1.020 (1.003-1.035) Urine Protein 30mg/dL (NEG,TRACE) Urine Glucose (UA) 250mg/dL (NEGATIVE) Urine Ketones Negativemg/dL (NEGATIVE) Urine Occult Blood Small (NEGATIVE) Urine Nitrite Negative (NEGATIVE) Urine Bilirubin Negative (NEGATIVE) Urine Urobilinogen Normalmg/dL (NORMAL) Urine Leukocyte Esterase Negative (NEGATIVE) Urine RBC 0-2/hpf (0-2) Urine WBC 0-5/hpf (0-5) Urine Epithelial Cells Few/hpf (NONE-MOD) Urine Crystals None seen (NONE SEEN) Urine Bacteria Few/hpf (NONE-FEW) Urine Hyaline Casts None/lpf (NONE) Urine Granular Casts None seen (NONE SEEN) Urine Waxy Casts None seen (NONE SEEN) Urine Red Blood Cell Casts None seen (NONE SEEN) Urine White Blood Cell Casts None seen (NONE SEEN) Urine Mucus None seen (None Seen) Urine Trichomonas None seen (NONE SEEN) Urine Yeast None (NONE SEEN) Urinalysis Comment None Urine Culture Reflexed Not indicated Magnesium Level 1.9mg/dL (1.6-2.6) Test 11/18/16 11:11 11/19/16 02:35 11/25/16 08:10 Activated Partial Thromboplast Time 36.7sec (22.8-33.0) White Blood Count 7.4th/mm3 (3.8-10.1) Red Blood Count 3.87mil/mm3 (4.40-5.80) Hemoglobin 11.4g/dL (13.8-17.2) Hematocrit 34.4% (41.0-50.0) Mean Corpuscular Volume 88.9fL (81-100) Mean Corpuscular Hemoglobin 29.5pg (27.0-35.0) Mean Corpuscular Hemoglobin Concent 33.1% (32.0-37.0) Red Cell Distribution Width 13.8% (12.3-15.4) Platelet Count 185bil/L (150-400) Troponin T 0.342ug/L (0.0-0.011) Sodium Level 138mEq/L (134-144) Potassium Level 4.1mEq/L (3.5-5.2) Chloride Level 102mEq/L (97-108) Carbon Dioxide Level 22mmol/L (18-29) Blood Urea Nitrogen 20mg/dL (8-27) Creatinine 1.52mg/dL (0.76-1.27) Estimat Glomerular Filtration Rate 47mL/min (>59) Glucose Level 168mg/dL (60-99) Calcium Level 8.5mg/dL (8.5-10.1) Discharge Medications Discharge Medications Aspirin (Aspirin) 81 Mg Tablet 81 MG PO DAILY (Reported) Atenolol (Atenolol) 25 Mg Tablet 25 MG PO HS (Reported) Clopidogrel (Clopidogrel) 75 Mg Tablet 75 MG PO DAILY Prescribed by: JACKSON FUENTES MD Fluoxetine (Fluoxetine) 10 Mg Capsule 10 MG PO MORNING (Reported) Fluoxetine (Fluoxetine) 10 Mg Capsule 20 MG PO HS (Reported) Glipizide (Glipizide) 5 Mg Tablet 10 MG PO BID (Reported) Insulin Glargine (Lantus U100 Insulin Vial) 100 Unit/Ml Vial 40 UNIT SUBQ QAM ( Reported) Insulin Human Lispro (HumaLOG U100 Insulin Vial) 100 Unit/Ml Unit 2-5 UNIT SUBQ TID (Reported) Check blood sugars before meals and at bedtime. Use correction factor only before meals. Blood Sugar Lispro Correction: <151, 0 units; 151-175, 1 unit; 176-200, 2 units; 201-225, 3 units; 226-250, 4 units; 251-275, 5 units; 276-300 , 6 units; 301-325, 7 units; 326-350, 8 units; 351-375, 9 units; 376-400, 10 units; >400, 12 units. Isosorbide MN ER (Isosorbide MN ER) 30 Mg Tab.er.24h 90 MG PO 0730 Prescribed by: JACKSON FUENTES MD Metoprolol Tartrate (Metoprolol Tartrate) 25 Mg Tablet 50 MG PO TID Prescribed by: JACKSON FUENTES MD Pantoprazole DR (Pantoprazole DR) 40 Mg Tablet.dr 40 MG PO HS (Reported) Rosuvastatin Calcium (Crestor) 5 Mg Tablet 2.5 MG PO HS Prescribed by: JACKSON FUENTES MD As needed Nitroglycerin SL (Nitroglycerin SL) 0.4 Mg Tab.subl 0.4 MG SL PRN PRN PRN CHEST PAIN take one every 5 min for 3 doses for chest pain, call 911 if not better Prescribed by: JACKSON FUENTES MD Followup Plan Disposition: Home Follow-up plan He will see your primary care provider, Dr. Briggs tomorrow and your manipulative therapy specialist , Dr. Montalvo next week. Please request a nutrition evaluation as well as diabetic education classes from Dr. Briggs is you have talked about. Also please mention our idea of initiation with one of the kidney doctors who have ongoing management of your chronic kidney disease. Discharge Diet: Low fat, Low Sodium, Heart Healthy Discharge Activity: Limited until seen by PCP Follow-up Provider: Tammy Briggs MD Follow-up with PCP in: 1 week Provider: Ziyad Mccallum MD Follow-up in: 1 week Time spent 40 minutes Jackson Fuentes MD Nov 25, 2016 10:32
[2016-11-25 10:40] VITALS: PULSE 63
--- NOTE | 2016-11-25 11:00 | NUR ---
Discharge Pt. discharged to home with and took all his belongings from [address] [facility]. Pt. was given educational material on new prescriptions Clopidogrel, Isosorbide, Metoprolol Tartrate, and Rosuvastatin Calcium. Pt. was also given booklets on cardiac cath and cardiac stinting as well. He was instructed to follow up with Dr Higginbotham on Wednesday at 3:15 and that his PCP DR Briggs office would call him at his home to schedule do to some scheduling issues. Pt. and stated they understood. Pt. IV DC'D x2 intact and asymptomatic. Right groin site non-tender and soft to palpation, Pt. states no pain when ambulating.
--- NOTE | 2016-11-25 11:45 | NUR ---
Social Work Note: Discharge Data& Assessment: EMR reviewed. Per pt is medically ready to discharge. SW met with pt and pt at bedside to confirm discharge plan and assess for any unmet needs. Rios Montoya is a 81 year old male admitted on 11/16/2016 for NSTEMI. Per pt is medically improved after heart cath. Pt is ambulating independently in his room. Pt is transporting pt home today. Pt and pt denies any unmet needs or concerns. Pt is in good spirits now that he is able to go home today. No other discharge needs identified. Plan: Per pt is medically improved and ready to discharge home via POV. Pt and pt denies any unmet needs or concerns. No other discharge needs identified. ENRIQUE Ramirez
== END 2016-11-25 11:28 | disposition home or self-care (01) | DRG 247 ==
LOC: PCC 05:44
PROVIDERS: ADMIT Internal Medicine; ATTEND Hospitalist
PROC: 4A023N7 Measurement of Cardiac Sampling and Pressure, Left Heart, Percutaneous Approach (ICD-10-PCS; 2016-11-19)
PROC: B2181ZZ Fluoroscopy of Left Internal Mammary Bypass Graft using Low Osmolar Contrast (ICD-10-PCS; 2016-11-19)
PROC: B2111ZZ Fluoroscopy of Multiple Coronary Arteries using Low Osmolar Contrast (ICD-10-PCS; 2016-11-19)
PROC: B2121ZZ Fluoroscopy of Single Coronary Artery Bypass Graft using Low Osmolar Contrast (ICD-10-PCS; 2016-11-19)
PROC: 027034Z Dilation of Coronary Artery, One Artery with Drug-eluting Intraluminal Device, Percutaneous Approach (ICD-10-PCS; principal; 2016-11-23)
DX: I21.4 Non-ST elevation (NSTEMI) myocardial infarction (principal); N17.9 Acute kidney failure, unspecified; I23.7 Postinfarction angina; I47.2 Ventricular tachycardia; I25.10 Atherosclerotic heart disease of native coronary artery without angina pectoris; Z95.1 Presence of aortocoronary bypass graft; Z87.891 Personal history of nicotine dependence; E11.22 Type 2 diabetes mellitus with diabetic chronic kidney disease; E11.65 Type 2 diabetes mellitus with hyperglycemia; N18.3 Chronic kidney disease, stage 3 (moderate); Z79.4 Long term (current) use of insulin; Z95.810 Presence of automatic (implantable) cardiac defibrillator; I12.9 Hypertensive chronic kidney disease with stage 1 through stage 4 chronic kidney disease, or unspecified chronic kidney disease; E78.5 Hyperlipidemia, unspecified

== ENCOUNTER 2016-12-17 16:38 | Inpatient (IN) | payer MEDICARE ==
[~2016-12-17] VITALS: Ht 185.4 cm; Wt 99.8 kg
[~2016-12-17 16:38] MED LIST changes: -CLOB15CR3 TOP; +CLOP75TA28 PO; +FLUO10CA20 PO; +ISOS30TA4 PO; +METO25TA6 PO; -OMEP20CA11 PO; +PANT40TA3 PO; -ROB500 PO; +ROSU5TAB PO
[2016-12-17 16:58] VITALS: BP 133/55; PULSE 85; RESP 15; O2SAT 94
[2016-12-17 17:36] LABS: BASOPHILS % (AUTO) 0.8 % (0-3); EOSINOPHILS % (AUTO) 9.6 % (0-5); MONOCYTES % (AUTO) 9.2 % (4-12); Mean Corpuscular Hemoglobin 30.7 pg (27.0-35.0); Mean Corpuscular Volume 90.1 fL (81-100); NEUTROPHILS % (AUTO) 54.9 % (40-74); Platelet Count 161 bil/L (150-400)
--- NOTE | 2016-12-17 17:45 | ED.REPORT ---
HPI-General Illness Date of Service Dec 17, 2016 ED Provider: Xander Mohamud MD Patient is an 81 year old male with a history of CHF, stage 3 renal failure, CAD , pacemaker, diabetes, 5-vessel AC bypass and recent cardiac stent placement who presents to the ED complaining of chest pain onset 1400. Associated symptoms include pain that radiates into both his shoulders and back, cough and feeling that his left side is cold. He denies new leg swelling, fever or recent injury. Prior to arrival, the patient took 1 nitro and 324 ASA with slight relief of symptoms. Patient is currently on Plavix. No other new complaints at this time. Nursing Notes Stated Complaint: CHEST PAIN Chief Complaint: Chest Pain Nursing Notes Reviewed: Yes Allergies: Coded Allergies: Hnvnsyc-Csm-Wix Reductase Inhibitor (Verified Allergy, Intermediate, MAKE HIM HURT ALL OVER, 12/17/16) bupropion (Verified Allergy, Intermediate, ANXIETY, 12/17/16) metformin (Verified Allergy, Unknown, 12/17/16) STATES CANNOT TAKE DUE TO KIDNEY FUNCTION lactose (Verified Adverse Reaction, Intermediate, Diarrhea, 12/17/16) Scheduled Aspirin (Aspirin) 81 Mg Tablet 81 MG PO HS Atenolol (Atenolol) 25 Mg Tablet 25 MG PO HS Clopidogrel (Clopidogrel) 75 Mg Tablet 75 MG PO DAILY Glipizide (Glipizide) 5 Mg Tablet 10 MG PO BID Insulin Glargine (Lantus U100 Insulin Vial) 100 Unit/Ml Vial 42 UNIT SUBQ QAM Isosorbide MN ER (Isosorbide MN ER) 60 Mg Tab.er.24h 60 MG PO DAILY Metoprolol Tartrate (Metoprolol Tartrate) 50 Mg Tablet 50 MG PO TID Scheduled PRN Nitroglycerin SL (Nitroglycerin SL) 0.4 Mg Tab.subl 0.4 MG SL PRN PRN PRN CHEST PAIN take one every 5 min for 3 doses for chest pain, call 911 if not better Pantoprazole DR (Pantoprazole DR) 40 Mg Tablet.dr 40 MG PO DAILY PRN PRN For Dyspepsia or Heartburn General Time Seen by : 17:01 Chief Complaint Chest pain Hx Obtained From: Patient Arrived By: Walk-in Sudden in Onset?: Yes Onset Occurred: 1 - 4 hours ago Symptom Duration: Since onset Location: : Chest Quality: Painful Radiation: : Back: Shoulder Severity: Current: Moderate Recent Healthcare: Recent doctor visit, Recent hospitalization Similar Sx Previous: Yes Past Medical History Past Medical History Prostatic hyperplasia with obstruction ARF, continues to improve HTN, controlled DM, controlled depression Reports: Congestive heart failure, Coronary artery disease Past Surgical History Reports: CABG, Cholecystectomy Reports: AICD, Pacemaker insertion Family History noncontributory Smoking History Former Smoker Social History Alcohol Use: Denies alcohol use Drug Use: Denies drug use Other Social History: Good social support, , Local resident Ambulatory Status Independent Review of Systems Full Review of Systems Constitutional: Denies: Chills, Fever Respiratory: Reports: Non-productive cough, Denies: Shortness of breath Cardiovascular: Reports: Chest pain Musculoskeletal: Reports: Back pain, Extremity pain, Denies: Extremity swelling Neurologic: Denies: Numbness, Weakness Complete sys rev & neg: except as marked. Physical Exam Constitutional: Well-developed, well-nourished elderly male sitting up in bed. Not diaphoretic. Head: Normocephalic and atraumatic. Mouth/Throat: Oropharynx is clear and moist. No oropharyngeal exudate. Eyes: EOM are normal. Pupils are equal, round, and reactive to light. Neck: Supple, no tracheal deviation. Cardiovascular: Normal rate, regular rhythm. Equal and intact distal pulses throughout. Trace edema to BLE. Pulmonary/Chest: Effort normal and breath sounds normal. No respiratory distress. Abdominal: Soft. No distension. There is no tenderness, rebound, or guarding. Musculoskeletal: Range of motion grossly intact, moving all extremities. Neurological: AOx3. Grossly nonfocal exam. Strength and sensation intact and equal to bilateral upper and lower extremities. Skin: Warm and dry, no rashes or pallor appreciated. Psychiatric: Appropriate mood and affect. Behavior appears normal. Vital Signs Vital Signs Date Time Temp Pulse Resp B/P Pulse Ox O2 Delivery O2 Flow Rate FiO2 12/17/16 16:58 36.7 85 15 133/55 94 Room Air Initial VS: Reviewed Interpretation & Diagnostics Lab Results Interpretation Result Diagram: 12/17/16 1729 12/17/16 1729 Test 12/17/16 17:29 12/17/16 18:38 White Blood Count 7.8th/mm3 (3.8-10.1) Red Blood Count 3.94mil/mm3 (4.40-5.80) Hemoglobin 12.1g/dL (13.8-17.2) Hematocrit 35.5% (41.0-50.0) Mean Corpuscular Volume 90.1fL (81-100) Mean Corpuscular Hemoglobin 30.7pg (27.0-35.0) Mean Corpuscular Hemoglobin Concent 34.1% (32.0-37.0) Red Cell Distribution Width 14.6% (12.3-15.4) Platelet Count 161bil/L (150-400) Neutrophils (%) (Auto) 54.9% (40-74) Lymphocytes (%) (Auto) 25.4% (14-46) Monocytes (%) (Auto) 9.2% (4-12) Eosinophils (%) (Auto) 9.6% (0-5) Basophils (%) (Auto) 0.8% (0-3) Prothrombin Time 10.3sec (8.1-12.5) Prothromb Time International Ratio 0.96ratio Activated Partial Thromboplast Time 24.6sec (22.8-33.0) Sodium Level 140mEq/L (134-144) Potassium Level 4.4mEq/L (3.5-5.2) Chloride Level 107mEq/L (97-108) Carbon Dioxide Level 18mmol/L (18-29) Blood Urea Nitrogen 38mg/dL (8-27) Creatinine 1.94mg/dL (0.76-1.27) Estimat Glomerular Filtration Rate 35mL/min (>59) Glucose Level 253mg/dL (60-99) Calcium Level 8.4mg/dL (8.5-10.1) Magnesium Level 2.1mg/dL (1.6-2.6) Total Bilirubin 0.3mg/dL (0.0-1.2) Aspartate Amino Transf (AST/SGOT) 16U/L (0-50) Alanine Aminotransferase (ALT/SGPT) 20U/L (0-44) Alkaline Phosphatase 54U/L (25-160) Pro-B-Type Natriuretic Peptide 2515pg/mL (0-486) Total Protein 6.6g/dL (6.4-8.4) Albumin 3.5g/dL (3.4-5.0) Troponin T 0.022ug/L (0.0-0.011) ECG Interpretation ECG Interpretation: ventricular paced complexes Time: 16:57 Interpreted by: ED physician Normal ECG Interpretation: Normal rate (72) X-Ray Chest Interpretation Chest Xray Interpretation: IMPRESSION: No acute pulmonary process. Dictated by: Venus Pond M.D. on 12/17/2016 at 18:21 Approved by: Venus Pond M.D. on 12/17/2016 at 18:21 View: Portable, 1 view Interpretation / Wet Read by: Interpret - Radiologist Re-Eval/Medical Decision Med Decision/Clinical Course In summary, 81-year-old male with complex past medical history noted above, notable for diffuse coronary artery disease s/p recent cath and CABG 17 years ago p/w chest pain radiating through to his back. Given his coronary disease, obvious concern for unstable angina/NSTEMI, however with the description that he is having pain radiating through to his back, relatively sudden onset, there is some concern for aortic dissection, however low. A CT angiogram of the patient's chest was obtained, which did not demonstrate any evidence of acute dissection. The patient was started on a heparin drip. Labs reviewed, notable for mildly elevated troponin, down from previous. He is currently considering his options with respect to his coronary disease, and has been considering wanting to get a second opinion from a cardiothoracic surgeon with respect to possible CABG. I discussed the patient with cardiology as noted below. Plan admission for cardiology evaluation, further management. Discussed with the patient at length, who is agreeable to the plan and has no further questions. Time of Eval: 17:20 Re-Evaluation/Progress Note: Discussed plan for CT and admit. Patient understands and agrees to plan. All questions were addressed Consultation #1: Referral / Consult Name: Eben Ocampo MD Consulted With: Cardiology Call Returned at: 17:47 Search Engine Optimization Specialist: Will see patient (in the morning), Agrees with eval, Agrees with plan, Accepts admit Consultation #2: Referral / Consult Name: Jackson Hand MD Consulted With: Hospitalist Call Returned at: 18:25 Search Engine Optimization Specialist: Agrees with eval, Agrees with plan, Accepts admit Counseled Regarding: Diagnosis, Lab results, Need for admission Discharge & Departure Primary Impression: NSTEMI (non-ST elevated myocardial infarction) Disposition: ADMITTED TO HOSPITAL Discharge Condition All VS Reviewed: Yes Condition: Stable Referrals: Tammy Briggs MD (PCP) Crit Care Except Billable Proc Time Spent: 75-104 minutes Services Performed: Patient management by me, Time spent at bedside, Reviewing test results, Reviewing imaging, Discussing patient care, Documentation in record, Time with fam/surrogate Critical Care Notes: Please see JENELLE. Jessica Attestation Portions of this note were transcribed by Ivory Schafer. I, Dr. Mohamud personally performed the history, physical exam and medical decision-making; I reviewed and confirmed the accuracy of the information in the transcribed note. Signed by: Jessica Browning, 12/17/16 and 1800 copies to: Tammy Briggs MD, William B MD Dec 17, 2016 17:45 Nhung Schafer Dec 17, 2016 17:46
[2016-12-17 17:58] LABS: TROPONIN T 0.026 ug/L (0.0-0.011)
[2016-12-17 18:09] LABS: Magnesium 2.1 mg/dL (1.6-2.6)
--- NOTE | 2016-12-17 18:23 | DRSVH ---
PROCEDURE: X-RAY CHEST ONE VIEW, PORTABLE ([id number]) INDICATIONS: CHEST PAIN TECHNIQUE: One view of the chest was acquired. COMPARISON: [facility], CR, XR CHEST 2VW, 06/08/2016, 11:28. FINDINGS: Surgical changes and devices: Pacemaker. Lungs and pleura: No pleural effusions or pneumothorax. Lungs are clear. Mediastinum: Mediastinal contours appear normal. Heart size is normal. Bones and chest wall: No suspicious bony lesions. Overlying soft tissues appear unremarkable. IMPRESSION: No acute pulmonary process. Dictated by: Venus Pond M.D. on 12/17/2016 at 18:21 Approved by: Venus Pond M.D. on 12/17/2016 at 18:21
[2016-12-17 18:24] LABS: INR 0.96 ratio
[2016-12-17] MEDS ORDERED: ISOS60TA2 PO (18:58)
[2016-12-17] MEDS ORDERED: METO50TA3 PO (18:58)
--- NOTE | 2016-12-17 19:52 | DRSVH ---
PROCEDURE: CT ANGIO CHEST PULMONARY EMBOLISM ([id number]) INDICATIONS: CP radiating up to back; eval for dissection, PE TECHNIQUE: After the administration of intravenous contrast, 2 mm thick sections acquired from the pulmonary api arin to the posterior costophrenic angles. 3-dimensional maximum intensity projection (MIP) coronal a nd sagittal reformats were then acquired through the thorax. For radiation dose reduction, the follo wing was used: automated exposure control, adjustment of mA and/or kV according to patient size. COMPARISON: None. FINDINGS: Image quality: Excellent. Pulmonary arteries: Pulmonary arteries are normal in size, and demonstrate no intraluminal filling d efects to suggest central pulmonary embolism. Lungs and pleura: Lungs are clear. No pleural effusions or pneumothorax. Central and peripheral ai rways are patent. Mediastinum: Heart size is normal, without pericardial effusion. No mediastinal or hilar adenopathy . Thoracic aorta is normal in caliber and enhancement. Esophagus is normal in caliber, without hiat al hernia. Bones and chest wall: No suspicious bony lesions. Ribs and thoracic spine appear intact throughout. Thyroid gland is unremarkable. No axillary or supraclavicular adenopathy. Abdomen: Visualized upper abdominal solid organs appear normal in the early arterial phase of enhanc ement. IMPRESSION: 1. No pulmonary embolus. No visualized dissection. 2. No consolidation or effusion. Dictated by: Venus Pond M.D. on 12/17/2016 at 19:49 Approved by: Venus Pond M.D. on 12/17/2016 at 19:50
[2016-12-17] MEDS ORDERED: Heparin 25K Unit/500mL 0.45 NS 25,000 UNIT in IV Premix 1 EACH IV ONE (20:00)
[2016-12-17] MEDS ORDERED: Heparin 5,000 Unit/mL Inj IVPUSH ONE (20:00)
[2016-12-17 20:29] VITALS: BP 149/55; PULSE 86; RESP 16; O2SAT 96
[2016-12-17 21:00] VITALS: BP 136/79; PULSE 57; O2SAT 97
[2016-12-17] MEDS: 0.9% Sodium Chloride 1,000 ML IV SCH (23:39)
[2016-12-17] MEDS ORDERED: Heparin 25K Unit/500mL 0.45 NS 25,000 UNIT in IV Premix 1 EACH IV SCH (23:40)
[2016-12-17] MEDS ORDERED: Polyethylene Glycol (PEG) 17 Gm Powder PO PRN (23:40)
[2016-12-17] MEDS ORDERED: Ondansetron 2 mg/mL 2 mL Inj IVPUSH PRN (23:40)
[2016-12-17] MEDS ORDERED: Atropine 1 mg/10 mL (Code) Syringe IVPUSH PRN (23:40)
[2016-12-17] MEDS ORDERED: Senna-Docusate 8.6-50 mg Tablet PO PRN (23:40)
[2016-12-17] MEDS ORDERED: Alum-Mag Hydrox-Simeth 30 mL Suspension PO PRN (23:40)
[2016-12-17] MEDS ORDERED: Pantoprazole 40 mg ER24 Tablet PO PRN (23:45)
[2016-12-17] MEDS ORDERED: Heparin Protocol Boluses IVPUSH PRN (23:50)
[2016-12-18] VITALS (9 sets, daily range): BP systolic 114–130; BP diastolic 55–70; PULSE 50–75; RESP 16–20; O2SAT 95–98
--- NOTE | 2016-12-18 00:03 | PCM.HPMED ---
Subjective Date of Service Dec 17, 2016 Primary Provider: Admitting Physician: Derek Soto MD Primary Care Physician: Tammy Briggs MD Attending Physician: Derek Soto MD Chief Complaint: Chest pain History of Present Illness: Patient is an 81 year old male with a history of CHF, stage 3 renal failure, CAD , pacemaker, diabetes, 5-vessel CABG 17 years ago, and recent cardiac stent placement on 11/23/16, now on Aspirin and Plavix, who presents to the ED complaining of chest pain onset 2 PM. He describes an aching substernal chest pain with pressure that radiates into both his shoulders and back. It was initially 10/10, but improved to 7/10 with nitroglycerin. He states it is now improved to 2/10. Prior to arrival, the patient took 1 nitro and 324 ASA with slight relief of symptoms. He also reports shortness of breath on even minimal exertion, paroxysmal nocturnal dyspnea, dizziness, cough and feeling that his left side is cold. He denies new leg swelling, fever, orthopnea, syncope. He had been admitted from 11/16 - 11/25/16 for NSTEMI and received a Xience drug eluting stent to the saphenous vein graft to the diagonal artery. There were other major occlusions, including the LAD and RCA, but it was felt he could not take additional contrast due to his SAUMYA, and it was decided to do a follow up cath in the future after his SAUMYA had resolved. He states he would like a second opinion from cardiothoracic surgery at [facility]. In the ED, BP was 133/55, Hb 12.1, Hct 35.5, BUN 38, Cr 1.94, glucose 253, troponin 0.026, and proBNP 2515. CXR was negative. CT angio showed no PE or aortic dissection. EKG showed ventricular paced complexes and RBBB. Review of Systems: Comprehensive review of systems conducted and was negative except for the pertinent positives listed above. Allergies Coded Allergies: Gsvvymc-Xon-Yhb Reductase Inhibitor (Verified Allergy, Intermediate, MAKE HIM HURT ALL OVER, 12/17/16) bupropion (Verified Allergy, Intermediate, ANXIETY, 12/17/16) metformin (Verified Allergy, Unknown, 12/17/16) STATES CANNOT TAKE DUE TO KIDNEY FUNCTION lactose (Verified Adverse Reaction, Intermediate, Diarrhea, 12/17/16) Home Medications Aspirin 81 mg daily Atenolol 25 mg qhs Clopidogrel 75 mg daily Glipizide 10 mg BID Lantus 42 U daily Isosorbide mononitrate 60 mg daily Metoprolol tartrate 50 mg TID Nitro SL PRN Protonix 40 mg daily PRN PMH Cardiac arrest s/p AICD placement Congestive heart failure Coronary artery disease SAUMYA HTN, controlled DM, controlled Prostatic hyperplasia with obstruction Depression Surgical History AICD Pacemaker insertion CABG Cholecystectomy Family History Father; [place] at 60 Uncle: [place] at 60 Sister: Diabetes Social History Hx Alcohol Use: No Hx Substance Use: No Hx Tobacco Use: Yes Smoking Status: Former Smoker Exam Vital Signs Vital Sign - Last Date Time Temp Pulse Resp B/P Pulse Ox O2 Delivery O2 Flow Rate FiO2 12/17/16 21:00 36.8 57 136/79 97 Room Air 12/17/16 20:29 16 Exam General: Alert, Oriented X3, Cooperative, No acute distress Head: Normocephalic, atraumatic. External ears normal. Eyes: PERRLA, EOMI. Anicteric sclerae. Mouth: Mouth normal, Mucous membranes moist/pink Neck: Neck supple with full range of motion. Chest& Lungs: Clear to auscultation bilaterally with no crackles, wheezes, or rhonchi. Cardiovascular: Regular rate/rhythm, Normal S1, Normal S2, No murmurs/rubs/ gallops Abdomen: Non-tender, Non-distended, No masses, Normoactive bowel tones, Soft Musculoskeletal: Normal range of motion Extremities: Trace bilateral LE edema Neurological: Grossly neurologically intact. Normal speech Lab and Diagnostics Result Diagram: 12/17/16 1729 12/17/16 1729 X-Rays, CTs and MRIs Date of Service: 12/17/16 1652 PROCEDURE: X-RAY CHEST ONE VIEW, PORTABLE ([id number]) IMPRESSION: No acute pulmonary process. Dictated by: Venus Pond M.D. on 12/17/2016 at 18:21 PROCEDURE: CT ANGIO CHEST PULMONARY EMBOLISM ([id number]) INDICATIONS: CP radiating up to back; eval for dissection, PE IMPRESSION: 1. No pulmonary embolus. No visualized dissection. 2. No consolidation or effusion. Dictated by: Venus Pond M.D. on 12/17/2016 at 19:49 Additional Diagnostics: DATE OF SERVICE: 11/23/2016 PROCEDURE: Percutaneous intervention on the saphenous vein graft to diagonal. INDICATION: [id number] ME. SUMMARY: In summary, successful intervention of the SVG to the diagonal. The patient is advised to have antiplatelet therapy for at least six months post procedure. David Higginbotham MD 11/23/16 0805 SERVICE DATE: 11/19/2016 PROCEDURE: 1. Selective right and left coronary angiography. 2. Left heart catheterization. 3. Saphenous vein angiography. 4. JONES angiography. INDICATION: Non-ST elevation ME. Congestive heart failure. 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 There has been significant interim disease progression. Given his moderate renal insufficiency, he will be brought back at a subsequent date for an intervention. I would try to recanalize this distal PDA if possible. I would also proceed with an intervention on the saphenous vein graft to the diagonal. Assessment & Plan Patient is an 81 year old male with a history of CHF, stage 3 renal failure, CAD , pacemaker, diabetes, 5-vessel CABG 17 years ago, and recent cardiac stent placement on 11/23/16, now on Aspirin and Plavix, who presents to the ED complaining of chest pain and shortness of breath. Admitted for NSTEMI. Acute NSTEMI. Present on admission. - Pt presents with chest pain and dyspnea on exertion in the context of a recent cath and stent on 11/23/16, with considerable coronary artery disease and occlusion. He was scheduled to have further intervention in the future. Reports included above. Troponin was 0.026 on admission, improved to 0.023. Trop was previously 0.3-0.[address] Ocampo will see the patient in the AM. The patient requests a second opinion about possibly having a CABG at [place], so he may require transfer to [facility] tomorrow. - Continue aspirin 81 mg daily and Plavix 75 mg daily - Continue metoprolol. Hold atenolol. - NPO for possible cath tomorrow. Day team to start diet depending on conversation with Dr. Ocampo. - Pt has adverse rxn to statin (myopathy). - Heparin gtt cardiac protocol - Dr. Ocampo of Cardiology will see pt in AM. We appreciate his input. Congestive heart failure, chronic. - Pt reports PND and dyspnea on exertion but not orthopnea. BNP 2515. Minimal edema on physical exam. Pt does not appear significantly volume overloaded. - Continue metoprolol - Consider NERY inhibitor SAUMYA - Cr is 1.9. Pt does not appear to be in active CHF, so unlikely secondary to CHF. Will give fluids cautiously and monitor pt. Will stop fluids if pt shows signs of fluid overload. - NS @ 80 ml/hr - Monitor BMP in AM HTN, controlled - BP 136/79. - Continue Metoprolol, isosorbide mononitrate Type 2 diabetes mellitus - Glucose 253 on admission. A1c was 8.8 on 11/16/16. - Continue Lantus 42 U in AM - Hold glipizide - Pt is NPO for now, will hold off on nutritional insulin. Consider starting nutritional if still hyperglycemic after back on diet. Other Chronic Conditions Cardiac arrest s/p AICD placement Coronary artery disease Prostatic hyperplasia with obstruction Depression VTE Prophylaxis: Other (Pt on heparin gtt) Resuscitation Status: CPR: Attempt Resuscitation Fabian Szymanski Dec 18, 2016 00:03
[2016-12-18] MEDS ORDERED: Dextrose 10% 250 ML IV PRN (00:05)
[2016-12-18] MEDS ORDERED: Glucose 40% Oral Gel 15 Gm Tube PO PRN (00:05)
[2016-12-18] MEDS: Sodium Chloride LOK Flush 10 mL Syringe IVFLUSH SCH ×4 (01:03→20:54)
[2016-12-18 02:07] LABS: BASOPHILS % (AUTO) 0.5 % (0-3); EOSINOPHILS % (AUTO) 10.2 % (0-5); MONOCYTES % (AUTO) 10.2 % (4-12); Mean Corpuscular Hemoglobin 30.5 pg (27.0-35.0); Mean Corpuscular Volume 89.7 fL (81-100); NEUTROPHILS % (AUTO) 52.6 % (40-74); Platelet Count 152 bil/L (150-400)
--- NOTE | 2016-12-18 05:41 | NUR ---
Cardiac/BG/mood Irregular/paced rhythm, IVCD, 50-65 bpm. Denies chest pain. Heparin gtt at 1200/hr, aPTT draw at 0800 this morning. NPO for possible cath tomorrow, BG WNL. Pt and spouse visibly distressed about hospitalization, stating "we're so exhausted." Frequently verbalized desire to leave hospital for second opinion. Plan to meet with Dr. Ocampo in AM to discuss plan of care.
[2016-12-18] MEDS: Isosorbide Mononitrate 60 mg ER24 Tablet PO SCH (09:00)
[2016-12-18] MEDS: Insulin GLARgine 100 Unit/mL Syringe SUBQ SCH (09:01)
[2016-12-18] MEDS: 0.9% Sodium Chloride 1,000 ML IV SCH (12:25)
--- NOTE | 2016-12-18 14:10 | PCM.PNMED ---
Subjective Date of Service Dec 18, 2016 Subjective Overnight there were no acute events. The patient is feeling better but he is unsure if that is because he has just been laying around and not getting the extertional chest pain. He wants to know his options for his cardiac situation and is anxious about a plan. Exam Vital Signs Vital Sign - Last Date Time Temp Pulse Resp B/P Pulse Ox O2 Delivery O2 Flow Rate FiO2 12/18/16 11:47 36.5 50 20 115/55 95 Room Air Intake and Output 12/17/16 12/17/16 12/18/16 Cumulative From/Thru 15:00 23:00 07:00 12/17/16 16:58 - 12/18/16 06:44 Intake Total 672 ml 672 ml Output Total 300 ml 300 ml Balance 372 ml 372 ml Intake Oral 0 ml 0 ml IV Total 672 ml 672 ml Output Urine Total 300 ml 300 ml Exam Gen: Elderly male laying in bed in NDA, pleasant and cooperative HEENT: Normocephalic, atraumatic.PEERLA, EOMI. Membranes pink and moist without cobblestoning Neck: Neck supple with full range of motion, no thyromegaly or JVD CV: RRR, normal S1/S2, no murmurs/rubs/gallops. Pulm: CTA bilaterally, no wheezing/rales/rhonchi Abdomen: Soft, Non-tender, Non-distended, Normoactive bowel tones. Extremities: Very mild LE bilaterally. No cyanosis, clubbing. Neurological: A&Ox3. CN2-12 intact. Muscle strength normal in all extremities, no focal deficits. Psych: Normal mood and affect. IVs and Medications Medications Reviewed: Medications were reviewed in detail Lab and Diagnostics Result Diagram: 12/18/16 0130 12/18/16 0130 X-Rays, CTs and MRIs Date of Service: 12/17/16 4022 PROCEDURE: X-RAY CHEST ONE VIEW, PORTABLE ([id number]) IMPRESSION: No acute pulmonary process. Dictated by: Venus Pond M.D. on 12/17/2016 at 18:21 PROCEDURE: CT ANGIO CHEST PULMONARY EMBOLISM ([id number]) INDICATIONS: CP radiating up to back; eval for dissection, PE IMPRESSION: 1. No pulmonary embolus. No visualized dissection. 2. No consolidation or effusion. Dictated by: Venus Pond M.D. on 12/17/2016 at 19:49 Additional Diagnostics DATE OF SERVICE: 11/23/2016 PROCEDURE: Percutaneous intervention on the saphenous vein graft to diagonal. INDICATION: [id number] NJ. SUMMARY: In summary, successful intervention of the SVG to the diagonal. The patient is advised to have antiplatelet therapy for at least six months post procedure. David Higginbotham MD 11/23/16 0805 SERVICE DATE: 11/19/2016 PROCEDURE: 1. Selective right and left coronary angiography. 2. Left heart catheterization. 3. Saphenous vein angiography. 4. JONES angiography. INDICATION: Non-ST elevation NJ. Congestive heart failure. 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 There has been significant interim disease progression. Given his moderate renal insufficiency, he will be brought back at a subsequent date for an intervention. I would try to recanalize this distal PDA if possible. I would also proceed with an intervention on the saphenous vein graft to the diagonal. Assessment & Plan Patient is an 81 year old male with a history of CHF, stage 3 renal failure, CAD , pacemaker, diabetes, 5-vessel CABG 17 years ago, and recent cardiac stent placement on 11/23/16, now on Aspirin and Plavix, who presents to the ED complaining of chest pain and shortness of breath. Admitted for NSTEMI. Acute NSTEMI. Present on admission, improving -Pt came in with chest pain and SOB on exertion after having a cath and stent on 11/23 -Trops trending down, last one 0.026 -Continue ASA 81mg, plavix 75mg, and metoprolol daily -Pt allergic to statins -Cardiology consulted, appreciate Dr. Camargo's recommendations: -Heart healthy diet as no procedure will be done -Continue heparin drip for a total of 48h and have him be seen as an outpatient by cardiothoracic surgery at [place] for CABG evaluation Congestive heart failure, chronic. - Pt reports PND and dyspnea on exertion but not orthopnea. BNP 2515. - Pt still does not appear significantly volume overloaded. Minimal edema on physical exam, no JVD. - Continue metoprolol - Consider NERY inhibitor SAUMYA - Creatinine improved from 1.9 to 1.84 overnight - Continue to trend, avoid nephrotoxic meds (ASA needs to be continued due to heart stent 11/23) - Decrease NS to 50ml/hr as he is now cleared for PO intake HTN, controlled - BP continue to be in acceptable range - Continue Metoprolol, isosorbide mononitrate Type 2 diabetes mellitus - Glucose 253 on admission. A1c was 8.8 on 11/16/16. - Glucose 78 on 12/18, changed from NPO to diet - Continue Lantus 42 U in AM - Hold glipizide, consider restarting now that he is not NPO - Will consider nutritional if hyperglycemic now that he is not NPO Other Chronic Conditions Cardiac arrest s/p AICD placement Coronary artery disease Prostatic hyperplasia with obstruction Depression Pain Evaluation: Adequate Pain Control VTE Prophylaxis: Other (Pt on heparin gtt) Resuscitation Status: CPR: Attempt Resuscitation Time spent 30 minutes Attending Statement Patient was seen and examined at bedside in addition I directly supervised provided by Resident physician, Dr. Chawla. I agree with above documentation. Discussion of this patient with Dr. Camargo of cardiology confirms plan detailed above: medication management, without plan for further cardiac intervention at this time. copies to: Tammy Briggs MD, Jeffery S DO Dec 18, 2016 14:09 Jakub Srivastava DO Dec 19, 2016 13:29
--- NOTE | 2016-12-18 16:20 | NUR ---
Cardiac status/CBGs/pain BP's today 123/70, 115/55. Tele AV paced. Heart healthy diet. CBGs 91, 75, 67. Drank orange juice to bring back up to normal limits. Received APAP 325mg for 12/28 headache, pt stated it "took care of it." NS running at 50cc/hr. Hep drip running at 1200 units/hr. C/O some SOB and dyspnea at times. Sp02 95% RA. Addendum: 12/18/16 at 1636 by KHADRA WALLACE RN Pt very agitated in the morning but very relaxed and seemingly cheerful all afternoon and evening. A&O X3 all day.
[2016-12-18] MEDS ORDERED: MeTOProlol XL 50 mg ER24 Tablet PO ONE (18:30)
--- NOTE | 2016-12-19 01:51 | CONS ---
[address] [address] CONSULTATION REPORT PATIENT: KATIE NGUYEN : 1935 MR#: [id number] ADMIT: 12/17/2016 JOB ID: [id number] CARDIOLOGY CONSULTATION: DATE OF SERVICE: 12/18/2016 CHIEF COMPLAINT: Chest pain. HISTORY OF PRESENT ILLNESS: The patient is an 81-year-old man with complex history of coronary artery disease, status post CAB[place] [address] Diaz (five vessels), history of ventricular tachycardia, status post dual-chamber ICD in April 2010, diabetes (uncontrolled), hyperlipidemia, (uncontrolled--complicated by statin intolerance), stage 3 chronic kidney disease, and preserved LV systolic function. The patient is here following an episode of chest pain. Apparently, he was visiting some friends in [place]. Then, they had a long ride in the car from [place] to [place]. Once he came into his house, he sat in his easy chair, and he looked uncomfortable like he was grimacing in pain. His asked him what was wrong and that is when he confessed to her that for several minutes he has been having crushing substernal chest pain radiating into his neck bilaterally. . This discomfort was somewhat alleviated by sublingual nitroglycerin and aspirin and Cardiology is consulted to assist with management. PAST MEDICAL HISTORY: 1. Coronary artery disease, status post CABG, performed by Dr. Diaz at [facility]. His surgical anatomy is JONES to LAD, vein graft to the first diagonal, vein graft to ramus intermedius, vein graft to obtuse marginal branch, and vein graft to PDA. 2. Percutaneous coronary intervention most recently November 23, 2016, with intervention via drug-eluting stent to the vein graft to first diagonal branch. At that time, diagnostic cardiac catheterization on personal review demonstrated severe [employer] disease with subtotal occlusion of LAD, 60% circumflex, occluded proximal right coronary artery. He had patent JONES to LAD, patent but stenotic vein graft to first diagonal, which has since been intervened upon. He had patent vein graft to PDA with 40% mid graft stenosis. Unfortunately, he was found to have occluded graft to ramus intermedius, and occluded graft to circumflex. 3. Hyperlipidemia. Most recent lipid panel demonstrated total cholesterol 175, triglycerides 181, HDL 26, LDL 113. Unfortunately, patient has been intolerant of simvastatin and atorvastatin in the past. He has never tried rosuvastatin or pravastatin, but he declines attempting further statin therapy at this time due to severe myalgias. 4. Diabetes, uncontrolled. Most recent hemoglobin A1c is 8.8 as of November 16, 2016. 5. Dual-chamber ICD, [employer] brand, implanted in April 2010. Device is functioning normally. I briefly interrogated his device and there have been no alerts and only one run of brief asymptomatic atrial tachycardia that was 6 seconds long and does not correlate to onset of his symptoms. Incidental note is made of very frequent PVCs. High PVC burden estimated at about 20% at this time. 6. Chronic kidney disease, stage 3, with creatinine of 1.8 and calculated glomerular filtration rate of 38 mL/minute. 7. Depression. 8. Prostate hyperplasia with obstruction. PAST SURGICAL HISTORY: 1. Coronary artery bypass graft surgery in 2011. Outlined above. 2. Dual-chamber ICD insertion as outlined above. 3. Status post cholecystectomy. FAMILY HISTORY: Father with [place] in his 60s. Uncle with [place] in his 60s. Sister with diabetes. SOCIAL HISTORY: He is a former smoker. He does not use alcohol. He is accompanied today by his . REVIEW OF SYSTEMS: Significant for chest pain, fatigue. Otherwise, 10 point review of systems is negative. ALLERGIES: 1. STATIN DRUGS. Particularly, LOVASTATIN and ATORVASTATIN and SIMVASTATIN as outlined above. 2. METFORMIN. 3. BUPROPION. 4. LACTOSE. HOME MEDICATIONS: 1. Aspirin 81 mg daily. 2. Plavix 75 mg daily. 3. Atenolol 25 mg daily. 4. Metoprolol tartrate 50 mg 3 times a day. 5. Isosorbide mononitrate 60 mg daily. 6. Glipizide 10 mg twice a day. 7. Lantus 42 units daily. CURRENT MEDICATIONS IN THE HOSPITAL.: 1. Aspirin 81 mg daily. 2. Plavix 75 mg daily. 3. Toprol-XL 200 mg daily. 4. Isosorbide mononitrate 60 mg daily. 5. Lantus 42 units daily in the morning. 6. Amlodipine 2.5 mg daily. 7. Heparin IV per ACS protocol. 8. Bowel regimen. PHYSICAL EXAMINATION: Vital signs: Temperature 36.6, blood pressure 114/70 up to 123/70, pulse 58 to 75 beats per minute. Satting 95% to 98% on room air. General: A well-nourished man, no apparent distress. Eyes: No scleral icterus. Neck is supple. No lymphadenopathy. No carotid bruits. Heart: Normal S1, S2. No murmurs. Lungs: Clear to auscultation anteriorly. Abdomen is soft, positive bowel sounds. No hepatosplenomegaly. Extremities: Warm, well perfused. No clubbing, cyanosis, or edema. Skin: No rashes or lesions. LABORATORIES: Reviewed. Creatinine 1.8. Troponin T 0.02 and not rising or falling, just staying flat. Magnesium mildly low at 8.3, albumin was most recently 3.5. PTT 53 on heparin drip. Briefly, device check showed that he is A-paced 74%, V- paced 26%. Capture threshold is normal. Auto cap is on and by default capture threshold is tested by the device every 8 hours. Frequent PVCs are noted. EKG shows right bundle branch block and no significant ST segment changes. ASSESSMENT AND PLAN: This is an 82-year-old man with chest discomfort, and mildly elevated 12 troponins, which are difficult to interpret in light of stage 3 chronic kidney disease. They have certainly been higher in the past. We had a very long and detailed conversation about his coronary anatomy, in particular about the fact that his circumflex territory does not have good flow because [employer] circulation is severely diseased, and graft to ramus intermedius and graft to obtuse marginal branch, both of those grafts have failed. Unfortunately, we discussed that this is exactly to be expected since his grafts are 17 years old. I strongly recommended medical management for this octogenarian with stage 3 chronic kidney disease and he voiced understanding. It turns out that he is taking two different kinds of beta blockers, so I decided to streamline his regimen and I will be starting him on Toprol-XL 200 mg daily for its ant-anginal properties. We will also be adding calcium channel isabela. Will continue dual antiplatelet therapy since he has had recent percutaneous coronary intervention. The earliest I anticipate stopping Plavix would be November 23, 2017 and the patient is aware. Tomorrow we will revisit the subject of statin therapy since I think he would benefit from a trial of rosuvastatin. I explained to him that it is processed by a different pathway in the liver, so there is a good chance it will be well tolerated even though he had adverse reaction to other statins in the past. Thank you very much for the opportunity to participate in this patient's care. HARVINDER
[2016-12-19 02:30] LABS: BASOPHILS % (AUTO) 0.8 % (0-3); EOSINOPHILS % (AUTO) 8.6 % (0-5); MONOCYTES % (AUTO) 7.7 % (4-12); Mean Corpuscular Hemoglobin 30.5 pg (27.0-35.0); Mean Corpuscular Volume 89.6 fL (81-100); NEUTROPHILS % (AUTO) 61.3 % (40-74); Platelet Count 160 bil/L (150-400)
[2016-12-19 04:00] VITALS: BP 133/65; PULSE 78; RESP 20; O2SAT 96
--- NOTE | 2016-12-19 05:30 | NUR ---
[facility]/Sleep Pt c/o 5-11/28 [facility], received Tylenol w/ effective relief. Later pt denied having a headache. Pt had no c/o of chest pain overnight but verbalized understanding to inform nursing if pain were to occur. Pt seemed to sleep only intermittently, when asked if a sleeping aid would help him he stated he would not take one. VSS overnight, tele AV Paced w/ PVCs.
[2016-12-19 05:45] VITALS: PULSE 74
[2016-12-19 08:22] VITALS: BP 142/71; PULSE 66; RESP 16; O2SAT 92
[2016-12-19] MEDS ORDERED: MeTOProlol XL 50 mg ER24 Tablet PO SCH (08:30)
[2016-12-19 08:37] VITALS: PULSE 74
[2016-12-19] MEDS: Sodium Chloride LOK Flush 10 mL Syringe IVFLUSH SCH (09:22)
[2016-12-19] MEDS: Insulin GLARgine 100 Unit/mL Syringe SUBQ SCH (09:22)
--- NOTE | 2016-12-19 10:35 | PROG NOTE ---
[address] [address] PROGRESS NOTE PATIENT: KATIE NGUYEN : 1935 MR#: [id number] ADMIT: 12/17/2016 JOB ID: [id number] DATE: 12/19/2016 CHIEF COMPLAINT: Chest pain. SUBJECTIVE: Overnight patient had no chest pain. He had no events on telemetry. He has no awareness of palpitations. He feels good and desires to go home. OBJECTIVE: Vital signs: Temperature 36.8, blood pressure 133/65 up to 142/71, pulse 66 up to 78 beats per minute. Satting 99% to 96% on room air. Well-nourished man, no apparent distress. Eyes: No scleral icterus. Heart: Normal S1, S2. No murmurs. Lungs: Clear to auscultation anteriorly. Abdomen: Soft, positive bowel sounds. No hepatosplenomegaly. Extremities: Warm, well perfused. No clubbing, cyanosis or edema. Skin: No rashes or lesions. CURRENT MEDICATIONS: 1. Toprol XL 100 mg daily. 2. Amlodipine 2.5 mg daily. 3. Plavix 75 mg daily. 4. Aspirin 81 mg daily. 5. Isosorbide mononitrate 60 mg daily. 6. Heparin per ACS protocol. LABORATORIES: Reviewed. Hematocrit is a little bit down from 35% to 34% today. Platelet count is stable. Creatinine is down from 1.8 on admission to 1.6 today. Otherwise labs look good. ASSESSMENT AND PLAN: In summary, this is an 81-year-old man comes in with chest pain with mild troponin elevation which is difficult to interpret in light of stage 3 chronic kidney disease. PLAN: Coronary artery disease. Continue antianginal therapy. Stop atenolol 25 mg daily. Stop metoprolol tartrate 50 mg 3 times a day. Start Toprol-XL 200 mg daily. Continue isosorbide mononitrate 60 mg daily. Add amlodipine 2.[address] Follow[address] with Dr. Higginbotham in clinic. 1. Stent management-patient had a stent to the vein graft to D1 deployed November 23, 2016. I recommend continuing dual antiplatelet therapy at least until November 23, 2017. 2. Renal insufficiency. The patient is not on any angiotensin receptor blockers, no NERY inhibitors. His kidney function precludes safe utilization of these drugs. Additionally his LV systolic function is normal. 3. History of bypass surgery-patient desire surgical consultation to discuss redo bypass operation. Of course, that is his perogative. I personally think that is unlikely to be helpful and unlikely to be safe for him and the surgeon is unlikely to agree to do it but ultimately it is his right to seek a second opinion. Thank you very much for the opportunity to evaluate him. HARVINDER
[2016-12-19] MEDS: Isosorbide Mononitrate 60 mg ER24 Tablet PO SCH (11:11)
[2016-12-19] MEDS ORDERED: METO-272 PO (11:29)
[2016-12-19] MEDS ORDERED: METO200T32 PO (11:39)
[2016-12-19] MEDS ORDERED: AMLO5TAB2 PO (11:55)
--- NOTE | 2016-12-19 12:20 | PCM.DIMED ---
Delano Chawla DO 12/19/16 1220: Discharge Instructions Date of Service Dec 19, 2016 Dates of Hospitalization Dec 17, 2016 at 20:01 Discharge Diagnosis Discharge Diagnosis Acute NSTEMI Congestive heart failure SAUMYA HTN Type 2 diabetes mellitus Cardiac arrest s/p AICD placement Coronary artery disease Prostatic hyperplasia with obstruction Depression Medication Instructions Additional med instructions Continue your aspirin and plavix daily. This is essential with your recent stenting. Stop your atenolol 25mg and metoprolol tartrate 50mg three times daily. Start taking metroprolol succinate 200mg (Toprol-XL) and your new medication, amlodipine 2.5mg daily. Reassess with Dr. Higginbotham at your clinic appointment. Diet Discharge Diet: Heart Healthy Call your provider Call your provider for: Shortness of breath, Bleeding, Chest pain Patient Instructions Patient Instructions Continue your aspirin and plavix daily. This is essential with your recent stenting. Stop your atenolol 25mg and metoprolol tartrate 50mg three times daily. Start taking metroprolol succinate 200mg (Toprol-XL) and your new medication, amlodipine 2.5mg daily. Reassess the new regimen with Dr. Higginbotham at your clinic appointment. Follow-up Provider: Tammy Briggs MD Follow-up with PCP in: 1 week (1-2 weeks) [facility] Follow-up in: 1 week (at his scheduled appointment with Dr. Higginbotham) Jakub Srivastava DO 12/19/16 1421: Discharge Instructions Attending's Statement Read and agree Delano Chawla DO Dec 19, 2016 12:20 Jakub Srivastava DO Dec 19, 2016 14:21
--- NOTE | 2016-12-19 12:27 | PCM.DC.MED ---
Discharge Summary Date of Service Dec 19, 2016 Dates of Hospitalization Date of Hospital Admission Dec 17, 2016 at 20:01 Date of Discharge: Dec 19, 2016 Providers: Admitting Physician: Jakub Srivastava DO Primary Care Physician: Tammy Briggs MD Attending Physician: Jakub Srivastava DO Diagnosis at Time of Discharge Diagnosis at Time of Discharge Acute NSTEMI Congestive heart failure SAUMYA HTN Type 2 diabetes mellitus Cardiac arrest s/p AICD placement Coronary artery disease Prostatic hyperplasia with obstruction Depression Consultations Per Dr. Camargo 12/19/16 PLAN: Continue antianginal therapy. Stop atenolol 25 mg daily. Stop metoprolol tartrate 50 mg 3 times a day. Start Toprol-XL 200 mg daily. Continue isosorbide mononitrate 60 mg daily. Add amlodipine 2.5 mg [address] with Dr. Higginbotham in clinic. Procedures XRay, CTs & MRIs Date of Service: 12/17/16 1652 PROCEDURE: X-RAY CHEST ONE VIEW, PORTABLE ([id number]) IMPRESSION: No acute pulmonary process. Dictated by: Venus Pond M.D. on 12/17/2016 at 18:21 PROCEDURE: CT ANGIO CHEST PULMONARY EMBOLISM ([id number]) INDICATIONS: CP radiating up to back; eval for dissection, PE IMPRESSION: 1. No pulmonary embolus. No visualized dissection. 2. No consolidation or effusion. Dictated by: Venus Pond M.D. on 12/17/2016 at 19:49 Other Diagnostics DATE OF SERVICE: 11/23/2016 PROCEDURE: Percutaneous intervention on the saphenous vein graft to diagonal. INDICATION: [id number] PA. SUMMARY: In summary, successful intervention of the SVG to the diagonal. The patient is advised to have antiplatelet therapy for at least six months post procedure. David Higginbotham MD 11/23/16 0805 SERVICE DATE: 11/19/2016 PROCEDURE: 1. Selective right and left coronary angiography. 2. Left heart catheterization. 3. Saphenous vein angiography. 4. JONES angiography. INDICATION: Non-ST elevation PA. Congestive heart failure. 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 There has been significant interim disease progression. Given his moderate renal insufficiency, he will be brought back at a subsequent date for an intervention. I would try to recanalize this distal PDA if possible. I would also proceed with an intervention on the saphenous vein graft to the diagonal. Brief History Patient is an 81 year old male with a history of CHF, stage 3 renal failure, CAD , pacemaker, diabetes, 5-vessel CABG 17 years ago, and recent cardiac stent placement on 11/23/16, now on Aspirin and Plavix, who presents to the ED complaining of chest pain onset 2 PM. He describes an aching substernal chest pain with pressure that radiates into both his shoulders and back. It was initially 10/10, but improved to 7/10 with nitroglycerin. He states it is now improved to 2/10. Prior to arrival, the patient took 1 nitro and 324 ASA with slight relief of symptoms. He also reports shortness of breath on even minimal exertion, paroxysmal nocturnal dyspnea, dizziness, cough and feeling that his left side is cold. He denies new leg swelling, fever, orthopnea, syncope. He had been admitted from 11/16 - 11/25/16 for NSTEMI and received a Xience drug eluting stent to the saphenous vein graft to the diagonal artery. There were other major occlusions, including the LAD and RCA, but it was felt he could not take additional contrast due to his SAUMYA, and it was decided to do a follow up cath in the future after his SAUMYA had resolved. He states he would like a second opinion from cardiothoracic surgery at [facility]. In the hospital, his heparin drip was continued for >48h. Dr. Camargo of cardiology was consulted and streamlined his medications, advising medical management of his condition. His atenolol and metoprolol tartrate were changed to toprol XL 200mg and amlodipine 2.5mg was added. The patient and his both expressed understanding of his new regimen and are still considering a consult with a cardiothoracic surgeon depending on how these new medications work. Hospital Course Patient is an 81 year old male with a history of CHF, stage 3 renal failure, CAD , pacemaker, diabetes, 5-vessel CABG 17 years ago, and recent cardiac stent placement on 11/23/16, now on Aspirin and Plavix, who presents to the ED complaining of chest pain and shortness of breath. Admitted for NSTEMI. Acute NSTEMI. Present on admission, improving -Pt came in with chest pain and SOB on exertion after having a cath and stent on 11/23 -Trops trending down, last one 0.026 -Continue ASA 81mg, plavix 75mg, and metoprolol daily -Pt allergic to statins -Cardiology consulted, appreciate Dr. Camargo's recommendations: -Heart healthy diet as no procedure will be done -Continue heparin drip for a total of 48h and have him be seen as an outpatient by cardiothoracic surgery at [place] for CABG evaluation Congestive heart failure, chronic. - Pt reports PND and dyspnea on exertion but not orthopnea. BNP 2515. - Pt still does not appear significantly volume overloaded. Minimal edema on physical exam, no JVD. - Continue metoprolol - Consider NERY inhibitor SAUMYA - Creatinine improved from 1.9 to 1.84 overnight - Continue to trend, avoid nephrotoxic meds (ASA needs to be continued due to heart stent 11/23) - Decrease NS to 50ml/hr as he is now cleared for PO intake HTN, controlled - BP continue to be in acceptable range - Continue Metoprolol, isosorbide mononitrate Type 2 diabetes mellitus - Glucose 253 on admission. A1c was 8.8 on 11/16/16. - Glucose 78 on 12/18, changed from NPO to diet - Continue Lantus 42 U in AM - Hold glipizide, consider restarting now that he is not NPO - Will consider nutritional if hyperglycemic now that he is not NPO Other Chronic Conditions Cardiac arrest s/p AICD placement Coronary artery disease Prostatic hyperplasia with obstruction Depression Exam Vital Signs (Last) Date Time Temp Pulse Resp B/P Pulse Ox O2 Delivery O2 Flow Rate FiO2 12/19/16 08:37 74 12/19/16 08:22 36.8 16 142/71 92 Room Air Exam Gen: Elderly male laying in bed in NDA, pleasant and cooperative HEENT: Normocephalic, atraumatic.PEERLA, EOMI. Membranes pink and moist without cobblestoning Neck: Neck supple with full range of motion, no thyromegaly or JVD CV: RRR, normal S1/S2, no murmurs/rubs/gallops. Pulm: CTA bilaterally, no wheezing/rales/rhonchi Abdomen: Soft, Non-tender, Non-distended, Normoactive bowel tones. Extremities: No edema, cyanosis, or clubbing. Neurological: A&Ox3. CN2-12 intact. Muscle strength normal in all extremities, no focal deficits. Psych: Normal mood and affect. Test 12/17/16 17:29 12/17/16 22:10 12/17/16 23:39 12/18/16 01:30 Prothrombin Time 10.3sec (8.1-12.5) Prothromb Time International Ratio 0.96ratio Magnesium Level 2.1mg/dL (1.6-2.6) Pro-B-Type Natriuretic Peptide 2515pg/mL (0-486) Troponin T 0.023ug/L (0.0-0.011) Hemoglobin A1c 8.0% (4.8-5.6) Triglycerides Level 181mg/dL (0-149) Cholesterol Level 175mg/dL (100-199) LDL Cholesterol, Calculated 112.800mg/dL (0-99) VLDL Cholesterol 36.200mg/dL HDL Cholesterol 26mg/dL (>39) Cholesterol/HDL Ratio 6.73 (0.0-4.4) Test 12/19/16 02:15 12/19/16 06:17 12/19/16 08:10 White Blood Count 7.4th/mm3 (3.8-10.1) Red Blood Count 3.74mil/mm3 (4.40-5.80) Hemoglobin 11.4g/dL (13.8-17.2) Hematocrit 33.5% (41.0-50.0) Mean Corpuscular Volume 89.6fL (81-100) Mean Corpuscular Hemoglobin 30.5pg (27.0-35.0) Mean Corpuscular Hemoglobin Concent 34.0% (32.0-37.0) Red Cell Distribution Width 14.9% (12.3-15.4) Platelet Count 160bil/L (150-400) Neutrophils (%) (Auto) 61.3% (40-74) Lymphocytes (%) (Auto) 21.2% (14-46) Monocytes (%) (Auto) 7.7% (4-12) Eosinophils (%) (Auto) 8.6% (0-5) Basophils (%) (Auto) 0.8% (0-3) Sodium Level 143mEq/L (134-144) Potassium Level 4.1mEq/L (3.5-5.2) Chloride Level 110mEq/L (97-108) Carbon Dioxide Level 17mmol/L (18-29) Blood Urea Nitrogen 29mg/dL (8-27) Creatinine 1.57mg/dL (0.76-1.27) Estimat Glomerular Filtration Rate 45mL/min (>59) Glucose Level 108mg/dL (60-99) Calcium Level 7.8mg/dL (8.5-10.1) Total Bilirubin 0.3mg/dL (0.0-1.2) Aspartate Amino Transf (AST/SGOT) 21U/L (0-50) Alanine Aminotransferase (ALT/SGPT) 23U/L (0-44) Alkaline Phosphatase 49U/L (25-160) Total Protein 5.7g/dL (6.4-8.4) Albumin 3.4g/dL (3.4-5.0) Hold Urine Received (Received) Activated Partial Thromboplast Time 57.8sec (22.8-33.0) Discharge Medications Discharge Medications Amlodipine (Amlodipine) 5 Mg Tablet 2.5 MG PO DAILY Prescribed by: JAKUB SRIVASTAVA DO Aspirin (Aspirin) 81 Mg Tablet 81 MG PO HS (Reported) Clopidogrel (Clopidogrel) 75 Mg Tablet 75 MG PO DAILY Prescribed by: ALIZA FUENTES MD Glipizide (Glipizide) 5 Mg Tablet 10 MG PO BID (Reported) Insulin Glargine (Lantus U100 Insulin Vial) 100 Unit/Ml Vial 42 UNIT SUBQ QAM ( Reported) Isosorbide MN ER (Isosorbide MN ER) 60 Mg Tab.er.24h 60 MG PO DAILY (Reported) Metoprolol Succinate ER (Metoprolol Succinate ER) 200 Mg Tab.er.24h 200 MG PO DAILY Prescribed by: JAKUB SRIVASTAVA DO As needed Nitroglycerin SL (Nitroglycerin SL) 0.4 Mg Tab.subl 0.4 MG SL PRN PRN PRN CHEST PAIN take one every 5 min for 3 doses for chest pain, call 911 if not better Prescribed by: ALIZA FUENTES MD Pantoprazole DR (Pantoprazole DR) 40 Mg Tablet.dr 40 MG PO DAILY PRN PRN For Dyspepsia or Heartburn (Reported) Additional med instructions Continue your aspirin and plavix daily. This is essential with your recent stenting. Stop your atenolol 25mg and metoprolol tartrate 50mg three times daily. Start taking metroprolol succinate 200mg (Toprol-XL) and your new medication, amlodipine 2.5mg daily. Reassess with Dr. Higginbotham at your clinic appointment. Followup Plan Discharge Diet: Heart Healthy Patient Instructions Continue your aspirin and plavix daily. This is essential with your recent stenting. Stop your atenolol 25mg and metoprolol tartrate 50mg three times daily. Start taking metroprolol succinate 200mg (Toprol-XL) and your new medication, amlodipine 2.5mg daily. Reassess the new regimen with Dr. Higginbotham at your clinic appointment. Follow-up Provider: Tammy Briggs MD Follow-up with PCP in: 1 week (1-2 weeks) [facility] Follow-up in: 1 week (at his scheduled appointment with Dr. Higginbotham) Time spent 40 minutes Attending Statement I have seen and evaluated patient at bedside in addition to directly supervising care provided by resident physician. I agree with above documentation from 12/19/[address] Chawla. Delano Chawla DO Dec 19, 2016 12:27 Jakub Srivastava DO Dec 20, 2016 15:36
--- NOTE | 2016-12-19 13:51 | NUR ---
Discharge Pt discharged to home with transportation provided by his . Pt IV dc'd intact and tele removed, tech notified. Pt's discharge instructions, follow up appointments and new medications were reviewed. All questions were answered and pt voiced understanding. Pt's belongings were gathered for transportation home with pt. Pt was escorted off unit to his POV by [facility].
--- NOTE | 2016-12-19 17:06 | NUR ---
Social Work Note: Initial Assessment/Discharge Data& Assessment: EMR reviewed. Rios Montoya is a 81 year old male admitted on 12/17/2016 for N STEMI. Per MD pt is medically improved and ready to discharge home via POV. SW met with pt and pt at bedside to confirm discharge plan and assess for any unmet needs, SW role explained. Pt has [employer] [place] medic insurance and sees Tammy Briggs MD for primary care. Pt and pt live in a one story home that is ADL equipped in a skilled nursing community. Pt drives and is using a cane at baseline. Pt does not have HH or SNFhx. Pt does not have LTC insurance or VA benefits. Pt has DPOA/AD paperwork completed, SW requested a copy when possible. Pt transporting pt home today. Pt and pt deny any other needs. MD denies any further SW orders. No other discharge needs identified. Plan: Per pt is medically improved and ready to discharge home via POV. Pt and pt deny any other needs. denies any further SW orders. No other discharge needs identified. ENRIQUE Ramirez Addendum: 12/19/16 at 1708 by BILLIE MENDEZ Amended: Links added.
== END 2016-12-19 12:55 | disposition home or self-care (01) | DRG 281 ==
LOC: EDBD 16:38 → EDUNIT# 16:38 → SED 16:38 → PCC 20:01
PROVIDERS: ADMIT Family Medicine; ATTEND Internal Medicine
DX: I22.2 Subsequent non-ST elevation (NSTEMI) myocardial infarction (principal); N17.9 Acute kidney failure, unspecified; I21.4 Non-ST elevation (NSTEMI) myocardial infarction; I50.9 Heart failure, unspecified; I12.9 Hypertensive chronic kidney disease with stage 1 through stage 4 chronic kidney disease, or unspecified chronic kidney disease; E11.65 Type 2 diabetes mellitus with hyperglycemia; N18.3 Chronic kidney disease, stage 3 (moderate); I25.10 Atherosclerotic heart disease of native coronary artery without angina pectoris; N40.1 Benign prostatic hyperplasia with lower urinary tract symptoms; Z87.891 Personal history of nicotine dependence; Z95.810 Presence of automatic (implantable) cardiac defibrillator; Z95.5 Presence of coronary angioplasty implant and graft; Z95.1 Presence of aortocoronary bypass graft; Z79.82 Long term (current) use of aspirin

== ENCOUNTER 2016-12-19 17:41 | Inpatient (IN) | payer MEDICARE ==
[2016-12-19] VITALS (7 sets, daily range): BP systolic 115–153; BP diastolic 44–99; PULSE 62–87; RESP 16–21; O2SAT 95–99
[~2016-12-19] VITALS: Ht 185.4 cm; Wt 99.5 kg
[~2016-12-19 17:41] MED LIST changes: +AMLO5TAB2 PO; -FLUO10CA20 PO; -INSLIS SUBQ; -ISOS30TA4 PO; +ISOS60TA2 PO; +METO-272 PO; +METO200T32 PO; -METO25TA6 PO; +METO50TA3 PO; -ROSU5TAB PO
[2016-12-19] MEDS ORDERED: Albuterol-Ipratropium 3 mL Inhalation Solution NEB ONE (18:35)
--- NOTE | 2016-12-19 19:28 | DRSVH ---
PROCEDURE: CT BRAIN WITHOUT CONTRAST ([id number]) INDICATIONS: Headache. TECHNIQUE: Noncontrast 4.5 mm thick angled axial sections acquired from the foramen magnum to the vertex, with c oronal reformats. COMPARISON: [facility], CT, CT BRAIN WO CON, 04/17/2016, 21:24. FINDINGS: Image quality: Excellent. CSF spaces: Basal cisterns are patent. No extra-axial fluid collections. The ventricles are symmet spencer in size and shape. There is mild cerebral volume loss, with resultant ventricular and sulcal pro minence. Brain: No intracranial hemorrhage, mass, or mass effect. There are subcortical, periventricular and deep white matter hypodensities consistent with mild chronic small vessel ischemic changes. There i s intracranial internal carotid artery atherosclerosis. Skull and face: Calvarium and visualized facial bones appear intact, without suspicious lesions. Sinuses: Visualized sinuses demonstrate mild mucosal thickening within the left maxillary sinus. Ma stoid air cells are clear. IMPRESSION: 1. No acute intracranial abnormality. 2. Mild chronic white matter small vessel ischemic changes and cerebral volume loss. Dictated by: Fredrick Genao M.D. on 12/19/2016 at 19:24 Approved by: Fredrick Genao M.D. on 12/19/2016 at 19:26
--- NOTE | 2016-12-19 19:38 | DRSVH ---
PROCEDURE: X-RAY CHEST ONE VIEW, PORTABLE ([id number]) INDICATIONS: sob TECHNIQUE: One view of the chest was acquired. COMPARISON: [facility], CR, XR CHEST 1VW (PORTABLE), 12/17/2016, 17:29. FINDINGS: Surgical changes and devices: Multiple surgical clips are redemonstrated in the mediastinum. A left chest wall AICD is again noted Lungs and pleura: No pleural effusions or pneumothorax. There are increased bandlike opacities in t he left lung base consistent with atelectasis or developing consolidation. Mediastinum: Mediastinal contours appear unchanged. Heart size is normal. Bones and chest wall: No suspicious bony lesions. Overlying soft tissues appear unremarkable. IMPRESSION: 1. Bandlike left basilar opacities compatible with atelectasis or developing consolidation. Dictated by: Fredrick Genao M.D. on 12/19/2016 at 19:35 Approved by: Fredrick Genao M.D. on 12/19/2016 at 19:37
--- NOTE | 2016-12-19 20:18 | ED.REPORT ---
HPI-Headache Date of Service Dec 19, 2016 ED Provider: John Allen MD The patient is a 81 year old male w/ a hx of coronary artery disease, cardiac stents, DM II on insulin and stage 3 kidney disease who presents to the ED due to a 7/10 headache onset earlier today. Associated symptoms include nausea, and fatigue and exertional shortness of breath. The patient got out of the hospital today at 1pm today admitted for chest pain during which time he was maintained on a heparin infusion. The patient went home, laid down on the bed and became nauseous. He slept for 2 hrs and woke up with an intense headache, described as a "clamp on his head." He denies chest pain and SOB. He has no hx of asthma or COPD. Nursing Notes Stated Complaint: ALLERGIC REACTION Chief Complaint: Allergic Reaction Nursing Notes Reviewed: Yes Allergies: Coded Allergies: Lrnqxte-Lbt-Mcz Reductase Inhibitor (Verified Allergy, Intermediate, MAKE HIM HURT ALL OVER, 12/17/16) bupropion (Verified Allergy, Intermediate, ANXIETY, 12/17/16) clindamycin (Verified Allergy, Mild, 12/19/16) metformin (Verified Allergy, Unknown, 12/17/16) STATES CANNOT TAKE DUE TO KIDNEY FUNCTION lactose (Verified Adverse Reaction, Intermediate, Diarrhea, 12/17/16) Scheduled Amlodipine (Amlodipine) 5 Mg Tablet 2.5 MG PO DAILY Aspirin (Aspirin) 81 Mg Tablet 81 MG PO HS Clopidogrel (Clopidogrel) 75 Mg Tablet 75 MG PO DAILY Glipizide (Glipizide) 5 Mg Tablet 10 MG PO BID Insulin Glargine (Lantus U100 Insulin Vial) 100 Unit/Ml Vial 42 UNIT SUBQ QAM Isosorbide MN ER (Isosorbide MN ER) 60 Mg Tab.er.24h 60 MG PO DAILY Metoprolol Succinate ER (Metoprolol Succinate ER) 200 Mg Tab.er.24h 200 MG PO DAILY Scheduled PRN Nitroglycerin SL (Nitroglycerin SL) 0.4 Mg Tab.subl 0.4 MG SL PRN PRN PRN CHEST PAIN take one every 5 min for 3 doses for chest pain, call 911 if not better Pantoprazole DR (Pantoprazole DR) 40 Mg Tablet.dr 40 MG PO DAILY PRN PRN For Dyspepsia or Heartburn General Time Seen by MD: 18:00 Chief Complaint Headache Hx Obtained From: Patient Arrived By: Walk-in Sudden in Onset?: Yes Onset Occurred: 1 - 4 hours ago Symptom Duration: Since onset Location: : Generalized Quality: Painful Severity: Current: Moderate Recent Healthcare: Recent doctor visit, Recent hospitalization Similar Sx Previous: Yes Past Medical History Past Medical History Prostatic hyperplasia with obstruction ARF, continues to improve HTN, controlled DM, controlled depression Reports: Congestive heart failure, Coronary artery disease Past Surgical History Reports: CABG, Cholecystectomy Reports: AICD, Pacemaker insertion Family History noncontributory Smoking History Former Smoker Social History Alcohol Use: Denies alcohol use Drug Use: Denies drug use Other Social History: Good social support, , Local resident Ambulatory Status Independent Physical Exam Initial Vital Signs Vital Signs (First) Date Time Temp Pulse Resp B/P Pulse Ox O2 Delivery O2 Flow Rate FiO2 12/19/16 17:44 36.3 62 20 153/79 95 Room Air Initial VS: Reviewed General/Constitutional: Awake, Alert answering questions appropriately easily speaking in full sentences Head / Eyes: Atraumatic, Normocephalic, PERRL Neck: Atraumatic, Supple Neurologic: Oriented X3, Speech NL, No motor deficits, No sensory deficits, CN II - XII intact, Reflexes equal bilat Diminished Breath Sounds: Positive: Decreased bilateral (significantly decreased) mildly prolonged expiratory wheeze Cardiovascular: Heart rate NL, Regular rhythm, Heart sounds NL Abdomen: Atraumatic, Soft, Non-tender Upper Extremity / MS: Atraumatic, Inspection NL, No erythema Lower Extremity / Pelvis / MS: Atraumatic, No edema Right Leg / Calf: Negative: Swelling present..., Tenderness present... Left Leg / Calf: Negative: Swelling present..., Tenderness present... Interpretation & Diagnostics Lab Results Interpretation Result Diagram: 12/19/16203412/19/162034 Test 12/19/16 20:35 White Blood Count 8.1th/mm3 (3.8-10.1) Red Blood Count 4.04mil/mm3 (4.40-5.80) Hemoglobin 12.2g/dL (13.8-17.2) Hematocrit 36.3% (41.0-50.0) Mean Corpuscular Volume 89.9fL (81-100) Mean Corpuscular Hemoglobin 30.2pg (27.0-35.0) Mean Corpuscular Hemoglobin Concent 33.6% (32.0-37.0) Red Cell Distribution Width 15.0% (12.3-15.4) Platelet Count 175bil/L (150-400) Neutrophils (%) (Auto) 62.6% (40-74) Lymphocytes (%) (Auto) 21.9% (14-46) Monocytes (%) (Auto) 8.0% (4-12) Eosinophils (%) (Auto) 6.8% (0-5) Basophils (%) (Auto) 0.5% (0-3) Prothrombin Time 10.3sec (8.1-12.5) Prothromb Time International Ratio 0.96ratio Activated Partial Thromboplast Time 25.1sec (22.8-33.0) Sodium Level 141mEq/L (134-144) Potassium Level 4.2mEq/L (3.5-5.2) Chloride Level 107mEq/L (97-108) Carbon Dioxide Level 19mmol/L (18-29) Blood Urea Nitrogen 25mg/dL (8-27) Creatinine 1.44mg/dL (0.76-1.27) Estimat Glomerular Filtration Rate 50mL/min (>59) Glucose Level 76mg/dL (60-99) Calcium Level 8.6mg/dL (8.5-10.1) Magnesium Level 2.0mg/dL (1.6-2.6) Total Bilirubin 0.5mg/dL (0.0-1.2) Aspartate Amino Transf (AST/SGOT) 19U/L (0-50) Alanine Aminotransferase (ALT/SGPT) 23U/L (0-44) Alkaline Phosphatase 57U/L (25-160) Troponin T 0.040ug/L (0.0-0.011) Pro-B-Type Natriuretic Peptide 4628pg/mL (0-486) Total Protein 7.0g/dL (6.4-8.4) Albumin 3.8g/dL (3.4-5.0) Hold Stratton Top Tube Received (Received) Re-Eval/Medical Decision Med Decision/Clinical Course In summary, the patient is an 81-year-old male who presents to the emergency department shortly after being recently discharged this hospital at which time he been admitted for an STEMI and maintained on a heparin infusion. He comes back today complaining of multiple issues including exertional shortness of breath, later stating that he has had some tightness in his chest. He additionally complains of vague headache. Here in the emergency department he is afebrile with stable vital signs and examination as above. EKG: ventricular paced complexes, rate 72 when compared to prior dated 12/18/16 there are fewer PVCS present LABS: CBC: unremarkable No leukocytosis Stable hematocrit Troponin 0.040 significantly increased from prior of 0.23 of 12/04 BUN: 25 Creatinine: 1.44 No significant electrolyte abnormalities HEAD CT IMPRESSION: negative CHEST X-RAY IMPRESSION: Bandlike left basilar opacities compatible with atelectasis or developing consolidation. 1834: Treated with duonebs 2129: Patient is vomiting. Informed pt of elevated troponin and need for admission. Pt understands and agrees with plan. 2149: Consultation with Dr. Camargo, cardiology. Given patient's recent hx and workup, she agrees with the plan for heparinization and admission. She also recommends 1.25 mg of amlodipine orally. Patient's presentation today is very vague. Given headache in the setting of recent heparin infusion I obtained a head CT which demonstrated no acute intracranial hemorrhage. Of note his troponin is up trending in the setting of significant coronary artery disease. This accommodation with his exertional shortness of breath and chest tightness is somewhat concerning for NSTEMI. That being said his troponin values are difficult to interpret in the setting of chronic kidney disease. After discussing with his medical center manager we feel that the safest course of action is repeat heparinization and admission for serial troponin. He did have poor air movement throughout both lung cameron and in the setting of history of smoking I did trial DuoNeb but this did not seem to help very much. Patient was discussed with admitting hospitalist and except for further management. Consultation : Referral / Consult Name: Ana Maria Camargo MD Consulted With: Cardiology Call Returned at: 21:51 Note: Consultation with Dr. Camargo, cardiology. Given patient's recent hx and workup, she agrees with the plan for heparinization and admission. She also recommends 1.25 mg of amlodipine orally. Counseled Regarding: Diagnosis, Lab results, Need for admission Discharge & Departure Impression: Primary Impression: Non-ST elevation myocardial infarction (NSTEMI) Additional Impressions: Elevated troponin Shortness of breath Chest tightness Headache Headache type: unspecified Headache chronicity pattern: unspecified pattern Intractability: not intractable Qualified Code: R51 - Headache History of coronary artery disease History of heart artery stent Disposition: ADMITTED TO HOSPITAL Discharge Condition All VS Reviewed: Yes Condition: Stable Referrals: Tammy Briggs MD (PCP) Crit Care Except Billable Proc Time Spent: 135-164 minutes Services Performed: Patient management by me, Time spent at bedside, Reviewing test results, Reviewing imaging, Discussing patient care, Documentation in record, Time with fam/surrogate Scribe Attestation Portion of this note were transcribed by Lanette Smith. I, Dr. Allen, personally performed the history, physical exam, and medical decision-making: I reviewed and confirmed the accuracy for the information in the transcribed note. Signed by: helio Navarro, 12/19/16 2200 copies to: Tammy Briggs MD, [place] Dec 19, 2016 20:18 John Allen MD Dec 19, 2016 23:10
[2016-12-19 20:40] LABS: BASOPHILS % (AUTO) 0.5 % (0-3); EOSINOPHILS % (AUTO) 6.8 % (0-5); Mean Corpuscular Hemoglobin 30.2 pg (27.0-35.0); Mean Corpuscular Volume 89.9 fL (81-100); NEUTROPHILS % (AUTO) 62.6 % (40-74); Platelet Count 175 bil/L (150-400)
[2016-12-19 21:03] LABS: INR 0.96 ratio
[2016-12-19 21:26] LABS: TROPONIN T 0.04 ug/L (0.0-0.011)
[2016-12-19] MEDS ORDERED: Heparin 5,000 Unit/mL Inj IVPUSH ONE (21:35)
[2016-12-19] MEDS ORDERED: Heparin 25K Unit/500mL 0.45 NS 25,000 UNIT in IV Premix 1 EACH IV ONE (21:35)
[2016-12-19] MEDS ORDERED: Ondansetron 2 mg/mL 2 mL Inj IVPUSH PRN (23:15)
[2016-12-19] MEDS ORDERED: Senna-Docusate 8.6-50 mg Tablet PO PRN (23:15)
[2016-12-19] MEDS ORDERED: Alum-Mag Hydrox-Simeth 30 mL Suspension PO PRN (23:15)
[2016-12-19] MEDS ORDERED: Polyethylene Glycol (PEG) 17 Gm Powder PO PRN (23:15)
--- NOTE | 2016-12-19 23:16 | PCM.HPMED ---
Subjective Date of Service Dec 19, 2016 Primary Provider: Admitting Physician: Primary Care Physician: Tammy Briggs MD Attending Physician: Admit Status: From the Emergency Department Chief Complaint: chest pressure, dyspnea on exertion History of Present Illness: 81yoM with past medical history of CAD s/p CABG (1999), h/o VT, diabetes, HLD, CKD stage 3, CHF s/p AICD placement, and recent stent placement (11/2016) and discharge 12/19 presenting to [facility] with admission due to recurrent chest pain on 12/19. Patient is primary historian with at bedside. Patient states that after arriving home following discharge that he became nauseated and went to take a nap. He slept for a couple of hours then woke up and went to his recliner to relax. When his came in from the patio she noticed that Mr. Nguyen was having significant difficulties breathing and clutching his chest however he denies chest pain at this time. It didn't improve until he was seen at [facility]. SOB is associated with minimal exertion and new productive cough and new onset diarrhea. Patient denies fevers, chills , vomiting, lightheadedness, dizziness, PND or orthopnea at time of admit. Chest xray is concerning for possible new consolidation. Patient was admitted 11/16/2016 with crushing prolonged chest pain secondary to NSTEMI. During this hospitalization cardiac cath was completed with findings of severe three vessel disease. Severe interim disease progression was noted but due to CKD complete intervention was delayed. During this procedure drug eluting stent was placed to the first diagonal branch. He was then readmitted at the end of November 2016 for recurrent chest pain and discharged with medical optimization. Review of Systems: complete review of systems obtained. positive as per hpi otherwise negative Allergies Coded Allergies: Pmpiqia-Gwx-Mgf Reductase Inhibitor (Verified Allergy, Intermediate, MAKE HIM HURT ALL OVER, 12/17/16) bupropion (Verified Allergy, Intermediate, ANXIETY, 12/17/16) clindamycin (Verified Allergy, Mild, 12/19/16) metformin (Verified Allergy, Unknown, 12/17/16) STATES CANNOT TAKE DUE TO KIDNEY FUNCTION lactose (Verified Adverse Reaction, Intermediate, Diarrhea, 12/17/16) Home Medications Per discharge summary 12/19 ---readmit on 12/19 Discharge Medications Amlodipine (Amlodipine) 5 Mg Tablet 2.5 MG PO DAILY Prescribed by: MEDARDO MILLER, Aspirin (Aspirin) 81 Mg Tablet 81 MG PO HS (Reported) Clopidogrel (Clopidogrel) 75 Mg Tablet 75 MG PO DAILY Prescribed by: ALIZA FUENTES MD Glipizide (Glipizide) 5 Mg Tablet 10 MG PO BID (Reported) Insulin Glargine (Lantus U100 Insulin Vial) 100 Unit/Ml Vial 42 UNIT SUBQ QAM ( Reported) Isosorbide MN ER (Isosorbide MN ER) 60 Mg Tab.er.24h 60 MG PO DAILY (Reported) Metoprolol Succinate ER (Metoprolol Succinate ER) 200 Mg Tab.er.24h 200 MG PO DAILY Prescribed by: MEDARDO MILLER DO As needed Nitroglycerin SL (Nitroglycerin SL) 0.4 Mg Tab.subl 0.4 MG SL PRN PRN PRN CHEST PAIN take one every 5 min for 3 doses for chest pain, call 911 if not better Prescribed by: ALIZA FUENTES MD Pantoprazole DR (Pantoprazole DR) 40 Mg Tablet.dr 40 MG PO DAILY PRN PRN For Dyspepsia or Heartburn (Reported) Additional med instructions Continue your aspirin and plavix daily. This is essential with your recent stenting. Stop your atenolol 25mg and metoprolol tartrate 50mg three times daily. Start taking metroprolol succinate 200mg (Toprol-XL) and your new medication, amlodipine 2.5mg daily. PMH Cardiac arrest s/p AICD placement Congestive heart failure Coronary artery disease SAUMYA HTN, controlled DM, controlled Prostatic hyperplasia with obstruction Depression Surgical History AICD Pacemaker insertion CABG Cholecystectomy Family History Father; [place] at 60 Uncle: [place] at 60 Sister: Diabetes Social History Hx Alcohol Use: No Hx Substance Use: No Hx Tobacco Use: Yes Smoking Status: Former Smoker Exam Vital Signs Vital Sign - Last Date Time Temp Pulse Resp B/P Pulse Ox O2 Delivery O2 Flow Rate FiO2 12/19/16 21:37 87 21 115/45 97 Room Air 12/19/16 17:44 36.3 Exam General: A&O, No acute distress, well-developed, well-nourished, appropriately interactive, [place] Eyes: PERRLA, EOMI, anicteric sclera HENT: Normocephalic, atraumatic. Moist mucous membranes Neck: Supple with full range of motion. Unable to assess jugular venous distension. No bruits. No thyromegaly. Cardiovascular: Regular rate and rhythm with no murmurs, rubs, or gallops appreciated Pulmonary: clear to auscultation bilateral, Normal respiratory effort with no use of accessory muscles. GI: Bowel tones present. Soft, nontender, nondistended. No hepatosplenomegaly or masses appreciated. : no person in place Extremities: No clubbing, cyanosis, trace edema Skin: Normal temperature, turgor, and texture; no rash, ulcers, or subcutaneous nodules appreciated. MSK: no joint erythema or warmth, unable to assess ROM Neurological: Nonfocal neurologic exam, no tremors noted, able to move all extremities spontaneously Psychiatric: Normal mood and affect. Alert and oriented to person, place, and time. Lymph: no cervical or supraclavicular lymphadenopathy Lab and Diagnostics Result Diagram: 12/19/16203412/19/162034 X-Rays, CTs and MRIs Patient Name: KATIE NGUYEN MR#: [id number] Location: SED Ordering Phys: John Allen MD Date of Service: 12/19/16 1834 PROCEDURE: X-RAY CHEST ONE VIEW, PORTABLE ([id number]) INDICATIONS: sob TECHNIQUE: One view of the chest was acquired. COMPARISON: [facility], CR, XR CHEST 1VW (PORTABLE), 12/17/2016, 17: 29. FINDINGS: Surgical changes and devices: Multiple surgical clips are redemonstrated in the mediastinum. A left chest wall AICD is again noted Lungs and pleura: No pleural effusions or pneumothorax. There are increased bandlike opacities in the left lung base consistent with atelectasis or developing consolidation. Mediastinum: Mediastinal contours appear unchanged. Heart size is normal. Bones and chest wall: No suspicious bony lesions. Overlying soft tissues appear unremarkable. IMPRESSION: 1. Bandlike left basilar opacities compatible with atelectasis or developing consolidation. Dictated by: Fredrick Genao M.D. on 12/19/2016 at 19:35 Approved by: Fredrick Genao M.D. on 12/19/2016 at 19:37 Patient Name: KATIE NGUYEN MR#: [id number] Location: [facility] Ordering Phys: John Allen MD Date of Service: 12/19/16 1836 PROCEDURE: CT BRAIN WITHOUT CONTRAST ([id number]) INDICATIONS: Headache. TECHNIQUE: Noncontrast 4.5 mm thick angled axial sections acquired from the foramen magnum to the vertex, with coronal reformats. COMPARISON: [facility], CT, CT BRAIN WO CON, 04/17/2016, 21:24. FINDINGS: Image quality: Excellent. CSF spaces: Basal cisterns are patent. No extra-axial fluid collections. The ventricles are symmetric in size and shape. There is mild cerebral volume loss , with resultant ventricular and sulcal prominence. Brain: No intracranial hemorrhage, mass, or mass effect. There are subcortical , periventricular and deep white matter hypodensities consistent with mild chronic small vessel ischemic changes. There is intracranial internal carotid artery atherosclerosis. Skull and face: Calvarium and visualized facial bones appear intact, without suspicious lesions. Sinuses: Visualized sinuses demonstrate mild mucosal thickening within the left maxillary sinus. Mastoid air cells are clear. IMPRESSION: 1. No acute intracranial abnormality. 2. Mild chronic white matter small vessel ischemic changes and cerebral volume loss. Dictated by: Fredrick Genao M.D. on 12/19/2016 at 19:24 Approved by: Fredrick Genao M.D. on 12/19/2016 at 19:26 Assessment & Plan 81yoM with past medical history of CAD s/p CABG (1999), h/o VT, diabetes, HLD, CKD stage 3, CHF s/p AICD placement, and recent stent placement (11/2016) and discharge 12/19 presenting to [facility] with admission due to recurrent chest pain on 12/19. Dyspnea with exertion, acute, POA -elevated BNP from recent admission -CXR with possible new consolidation -HCAP vs aspiration vs CHF exacerbation vs CAD -procalcitonin pending Diarrhea, acute, POA -concerning for c. diff given recent admission -stool pcr pending -isolation precautions, enteric Chest pain, acute, POA -continue heparin gtt -Continue ASA 81mg, plavix 75mg, and metoprolol daily -Pt allergic to statins -HgbA1c 12/17 8.9, lipid panel completed on 12/17, please refer to EMR -Cardiology consulted, appreciate Dr. Camargo's recommendations Headache, acute, POA -patient with new headaches following recent discharge -CT head non-contrast negative for acute bleed (reviewed on admission) -symptomatic management, low likelihood for meningitis however will monitor closely Congestive heart failure, chronic. - Continue metoprolol - No NERY inhibitor at this time given renal function CKD stage 3, chronic, POA - Creatinine at baseline - Continue to monitor, avoid nephrotoxic meds HTN, controlled - continue medications as above Type 2 diabetes mellitus, uncontrolled - hgbA1c 8.0 12/17 - Continue Lantus 42 U in AM - Hold glipizide - Medium correctional sliding scale Hyperlipidemia, chronic, POA -patient unable to take statins d/t allergy Pain Evaluation: Adequate Pain Control GI Prophylaxis: Proton Pump Inhibitor VTE Prophylaxis: Other (heparin gtt) Resuscitation Status: CPR: Attempt Resuscitation Vandana Nava DO Dec 19, 2016 23:16
[2016-12-19] MEDS ORDERED: Pantoprazole 40 mg ER24 Tablet PO PRN (23:35)
[2016-12-20] VITALS (10 sets, daily range): BP systolic 95–139; BP diastolic 52–93; PULSE 60–98; RESP 18–22; O2SAT 92–98
--- NOTE | 2016-12-20 | NUR ---
Admission to [facility] Room 2028 Pt arrived to PCC room 2028 at approximately 0000 on a gurney. Pt was transferred from [facility] to bed using a sliding board and multiple healthcare personnel. Pt was transferred to the bed in the room without issue. Pt's VSS and pt is AOx3 with SpO2 >92% on RA. Pt had IV Heparin running at 1,000 Unit/Hr on a Cardiac Heparin Drip.
[2016-12-20] MEDS: Sodium Chloride LOK Flush 10 mL Syringe IVFLUSH SCH ×3 (00:30→15:32)
[2016-12-20] MEDS ORDERED: Heparin 25K Unit/500mL 0.45 NS 25,000 UNIT in IV Premix 1 EACH IV SCH (01:45)
[2016-12-20] MEDS ORDERED: Heparin 5,000 Unit/mL Inj IVPUSH PRN (01:45)
[2016-12-20] MEDS ORDERED: Glucose 40% Oral Gel 15 Gm Tube PO PRN ×2 (03:20→15:00)
[2016-12-20] MEDS ORDERED: Dextrose 10% 250 ML IV PRN ×2 (03:20→15:00)
--- NOTE | 2016-12-20 05:50 | NUR ---
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 Pt now has a hat in the toilet in case the pt has more diarrhea. Need to send PCR stool sample for rule out. Until results from the PCR stool sample come back pt is on contact enteric precautions.
[2016-12-20 08:02] LABS: BASOPHILS % (AUTO) 0.6 % (0-3); EOSINOPHILS % (AUTO) 5.5 % (0-5); MONOCYTES % (AUTO) 8.6 % (4-12); Mean Corpuscular Volume 89.3 fL (81-100); NEUTROPHILS % (AUTO) 66.4 % (40-74); Platelet Count 166 bil/L (150-400)
[2016-12-20] MEDS ORDERED: Isosorbide Mononitrate 60 mg ER24 Tablet PO SCH (08:30)
[2016-12-20] MEDS: Insulin GLARgine 100 Unit/mL Syringe SUBQ SCH (08:30)
[2016-12-20 08:35] LABS: TROPONIN T 0.025 ug/L (0.0-0.011)
[2016-12-20] MEDS: MeTOProlol XL 50 mg ER24 Tablet PO SCH (08:44)
[2016-12-20] MEDS ORDERED: Nitroglycerin 50,000 mcg/250 mL D5W Premix IV ONE (09:15)
[2016-12-20] MEDS: Nitroglycerin 50 mg/250 mL D5W 50,000 MCG in IV Premix 1 EACH IV SCH (09:45)
--- NOTE | 2016-12-20 10:23 | CONS ---
[address] [address] CONSULTATION REPORT PATIENT: KATIE NGUYEN : 1935 MR#: [id number] ADMIT: 12/19/2016 JOB ID: [id number] DATE OF SERVICE: 12/20/2016 CHIEF COMPLAINT: Chest pain. HISTORY OF PRESENT ILLNESS: The patient is an 81-year-old man who was just here December 17 through December 19 was discharged, but then bounced back later with recurrence of chest discomfort. Right now he is complaining of 8/10 chest pain despite multiple injections of morphine and nitroglycerin. We are planning to start him on nitroglycerin drip. He has already started heparin drip. PAST MEDICAL HISTORY: 1. Coronary artery disease status post CABG, surgical anatomy is JONES to LAD, vein graft to diagonal, vein graft to ramus intermedius, vein graft to obtuse marginal branch, and vein graft to PDA. 2. Cath November 23, 2016, showed severe [place] disease, subtotal occlusion of LAD, 60% circumflex, occluded proximal right coronary artery, patent JONES to LAD. Stenotic vein graft to diagonal status post intervention, patent vein graft to PDA with 40% stenosis, occluded graft to ramus intermedius, and occluded graft to circumflex. 3. Hyperlipidemia. Most recent lipid panel demonstrated total cholesterol 175, triglycerides 181, HDL 26, LDL 113. The patient is intolerant of simvastatin and atorvastatin and required statins in the past. 4. Diabetes uncontrolled. Most recent A1c was 8.8% as of November 16, 2016. 5. Dual-chamber ICD [employer] brand implanted April 2000. Device is functioning normally. Frequent PVCs are noted. 6. Chronic kidney disease, stage 3. Creatinine was 1.8 last time, 1.4 currently. 7. Depression. 8. Prostate hyperplasia with history of obstruction. PAST SURGICAL HISTORY: 1. CABG in 2011 as outlined above. 2. Dual-chamber ICD insertion in 1999 as outlined above. 3. Cataracts. 4. Tonsillectomy. 5. Prostatectomy. 6. Rotator cuff repair. 7. Breast reduction surgery for gynecomastia. 8. Gallbladder in 2006. 9. Carpal tunnel release in 2006. 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 His is at the bedside. He is a former smoker and does not use alcohol. FAMILY HISTORY: Father with HI in his 60s. Uncle with [place] in his 60s. Sister with diabetes. REVIEW OF SYSTEMS: Significant for chest pain, fatigue, and shortness of breath. Otherwise, 10-point review of systems is negative. ALLERGIES: 1. ALL STATINS PARTICULAR LOVASTATIN, ATORVASTATIN, SIMVASTATIN. 2. METFORMIN. 3. BUPROPION. 4. LACTOSE. CURRENT MEDICATIONS: The patient was discharged on the following medications: 1. Aspirin 81 mg daily. 2. Plavix 75 mg daily. 3. Amlodipine 2.5 mg daily. 4. Toprol-XL 200 mg daily. 5. Isosorbide mononitrate 60 mg daily. 6. Glipizide 5 mg twice a day. 7. Lantus 42 units subcu daily. 8. Pantoprazole 40 mg daily. Atenolol and metoprolol were stopped. PHYSICAL EXAMINATION: Obese man, sitting in bed, appears fatigued and in some distress. Eyes no scleral icterus. Temperature 36.5, pulse 78, blood pressure 139/93, pulse 98% on room air. Heart normal S1, S2, no murmurs. Neck is supple. No lymphadenopathy. No carotid bruits. Lungs clear to auscultation anteriorly. Abdomen is soft, positive bowel sounds, no hepatosplenomegaly. Extremities well perfused. No clubbing, cyanosis, or edema. Skin no rashes or lesions. DIAGNOSTIC STUDIES: EKG uninterpretable due to chronic RV pacing and free frequent PVCs are noted. [place] QRS morphology is demonstrating right bundle branch block. Chest x-ray showed his cardiomegaly and mild pulmonary edema. Device in the left infraclavicular fossa. Multiple clips are present. Echocardiogram has been ordered and is pending. Apparently he also had a brain CT in the department which demonstrated mild chronic white matter vessel disease and no acute intracranial abnormality. ASSESSMENT AND PLAN: Plan for this patient is to continue all his heparin drip. Continue Plavix and aspirin. Start him on nitro drip and manage pain that way. Hopefully he will respond and after resting and cooling him off will go ahead and take him to the [employer] tomorrow. Continue serially monitoring his troponins. Of note other possible explanations for his chest discomfort include dissection or PE. He just had a CT PE protocol, December 17 which showed no evidence of pulmonary embolism and no evidence of dissection. Echocardiogram has been ordered and is pending. Will be dictated separately. Thank you very much for the opportunity to participate in this patient's care.
[2016-12-20] MEDS: Vancomycin 125 mg Oral Capsule PO SCH ×2 (13:57→20:18)
--- NOTE | 2016-12-20 16:23 | PCM.PNMED ---
Subjective Date of Service Dec 20, 2016 Subjective 81yoM with past medical history of CAD s/p CABG (1999), h/o VT, diabetes, HLD, CKD stage 3, CHF s/p AICD placement, and recent stent placement (11/2016) and discharge 12/19 presenting to [facility] with admission due to recurrent chest pain on 12/19. Patient is primary historian with at bedside. Overnight events: Patient states that after arriving home following discharge that he became nauseated and went to take a nap. He slept for a couple of hours then woke up and went to his recliner to relax. When his came in from the patio she noticed that Mr. Nguyen was having significant difficulties breathing and clutching his chest however he denies chest pain at this time. It didn't improve until he was seen at [facility]. SOB is associated with minimal exertion and new productive cough and new onset diarrhea. Patient denies fevers , chills, vomiting, lightheadedness, dizziness, PND or orthopnea at time of admit. Chest xray is concerning for possible new consolidation. Patient was admitted 11/16/2016 with crushing prolonged chest pain secondary to NSTEMI. During this hospitalization cardiac cath was completed with findings of severe three vessel disease. Severe interim disease progression was noted but due to CKD complete intervention was delayed. During this procedure drug eluting stent was placed to the first diagonal branch of a previous vein graft. He was then readmitted at the end of November 2016 for recurrent chest pain and discharged with medical optimization. Exam Vital Signs Vital Sign - Last Date Time Temp Pulse Resp B/P Pulse Ox O2 Delivery O2 Flow Rate FiO2 12/20/16 05:12 36.6 75 20 123/78 94 Room Air Intake and Output 12/19/16 12/19/16 12/20/16 Cumulative From/Thru 15:00 23:00 07:00 12/19/16 17:44 - 12/20/16 06:23 Intake Total 146 ml 146 ml Balance 146 ml 146 ml Intake Oral 0 ml 0 ml IV Total 146 ml 146 ml # Voids 2 2 # Bowel Movements 2 2 Exam General: A&O, No acute distress, well-developed, well-nourished, appropriately interactive, [place] Eyes: PERRLA, EOMI, anicteric sclera HENT: Normocephalic, atraumatic. Moist mucous membranes Neck: Supple with full range of motion. Unable to assess jugular venous distension. No bruits. No thyromegaly. Cardiovascular: Regular rate and rhythm with no murmurs, rubs, or gallops appreciated Pulmonary: clear to auscultation bilateral, Normal respiratory effort with no use of accessory muscles. GI: Bowel tones present. Soft, nontender, nondistended. No hepatosplenomegaly or masses appreciated. : no person in place Extremities: No clubbing, cyanosis, trace edema Skin: Normal temperature, turgor, and texture; no rash, ulcers, or subcutaneous nodules appreciated. MSK: no joint erythema or warmth, unable to assess ROM Neurological: Nonfocal neurologic exam, no tremors noted, able to move all extremities spontaneously Psychiatric: Normal mood and affect. Alert and oriented to person, place, and time. Lymph: no cervical or supraclavicular lymphadenopathy IVs and Medications Medications Reviewed: Medications were reviewed in detail Lab and Diagnostics Result Diagram: 12/19/16203412/19/162034 X-Rays, CTs and MRIs Patient Name: KATIE NGUYEN MR#: [id number] [place] [facility] [place]ing Phys: John Allen MD Date of Service: 12/19/16 1834 PROCEDURE: X-RAY CHEST ONE VIEW, PORTABLE ([id number]) INDICATIONS: sob TECHNIQUE: One view of the chest was acquired. COMPARISON: [facility], CR, XR CHEST 1VW (PORTABLE), 12/17/2016, 17: 29. FINDINGS: Surgical changes and devices: Multiple surgical clips are redemonstrated in the mediastinum. A left chest wall AICD is again noted Lungs and pleura: No pleural effusions or pneumothorax. There are increased bandlike opacities in the left lung base consistent with atelectasis or developing consolidation. Mediastinum: Mediastinal contours appear unchanged. Heart size is normal. Bones and chest wall: No suspicious bony lesions. Overlying soft tissues appear unremarkable. IMPRESSION: 1. Bandlike left basilar opacities compatible with atelectasis or developing consolidation. Dictated by: Fredrick Genao M.D. on 12/19/2016 at 19:35 Approved by: Fredrick Genao M.D. on 12/19/2016 at 19:37 Patient Name: KATIE NGUYEN MR#: [id number] Location: [facility] Ordering Phys: John Allen MD Date of Service: 12/19/161833 PROCEDURE: CT BRAIN WITHOUT CONTRAST ([id number]) INDICATIONS: Headache. TECHNIQUE: Noncontrast 4.5 mm thick angled axial sections acquired from the foramen magnum to the vertex, with coronal reformats. COMPARISON: [facility], CT, CT BRAIN WO CON, 04/17/2016, 21:24. FINDINGS: Image quality: Excellent. CSF spaces: Basal cisterns are patent. No extra-axial fluid collections. The ventricles are symmetric in size and shape. There is mild cerebral volume loss , with resultant ventricular and sulcal prominence. Brain: No intracranial hemorrhage, mass, or mass effect. There are subcortical , periventricular and deep white matter hypodensities consistent with mild chronic small vessel ischemic changes. There is intracranial internal carotid artery atherosclerosis. Skull and face: Calvarium and visualized facial bones appear intact, without suspicious lesions. Sinuses: Visualized sinuses demonstrate mild mucosal thickening within the left maxillary sinus. Mastoid air cells are clear. IMPRESSION: 1. No acute intracranial abnormality. 2. Mild chronic white matter small vessel ischemic changes and cerebral volume loss. Dictated by: Fredrick Genao M.D. on 12/19/2016 at 19:24 Approved by: Fredrick Genao M.D. on 12/19/2016 at 19:26 Assessment & Plan 81yoM with past medical history of CAD s/p CABG (1999), h/o VT, diabetes, HLD, CKD stage 3, CHF s/p AICD placement, and recent stent placement (11/2016) and discharge 12/19 presenting to [facility] with admission due to recurrent chest pain on 12/19. Tropinemia, present on admission, improving. - Continue ASA 81mg, plavix 75mg, and metoprolol daily, Pt allergic to statins - HgbA1c 12/17 8.9, lipid panel completed on 12/17, please refer to EMR - Troponins 0.023 on admission. 0.040 on repeat 24 hrs later. - Nitro ggt started, holding Imdur-ER. - Heparin gtt, - EKG uninterpretable due to chronic RV pacing and free frequent PVCs are noted. [place] QRS morphology is demonstrating right bundle branch block. - ECHO ordered and pending. - Cardiology consulted, appreciate Dr. Camargo's recommendations - Plan for cardiac cath in the 12/21/16, NPO after midnight. Enterocolitis due to clostridium difficile, present on admission. Active. - C. diff tox positive via stool PCR. - Isolation precautions, enteric - Procalcitonin 0.12 - 125 mg PO Q6 Oral vancomycin. Dyspnea with exertion, acute, present on admission. Ongoing. - Elevated BNP from recent admission - CXR with possible new consolidation - DuoNeb One time ordered. Headache, acute, POA. Resolved. - CT head non-contrast negative for acute bleed (reviewed on admission) - Symptomatic management, low likelihood for meningitis however will monitor closely Congestive heart failure, chronic. - Continue metoprolol - No NERY inhibitor at this time given renal function CKD stage 3, chronic, POA - Creatinine at baseline - Continue to monitor, avoid nephrotoxic meds HTN, controlled - continue medications as above Type 2 diabetes mellitus, uncontrolled - hgbA1c 8.0 12/17 - Continue Lantus 42 U in AM - Hold glipizide, - Nutritional and Low correctional Lispro scale. Hyperlipidemia, chronic, POA - Patient unable to take statins d/t allergy Acetaminophen for mild pain when necessary. Bowel regimen Senna and MiraLAX scheduled and PRN. Zofran when necessary for nausea and vomiting. SubQ heparin ggt for now. SCDs in place. High-risk medications: IV Morphine PO Vancomycin IV Heparin ggt Disposition: Admitted under inpatient status. Likely here for > 2 midnights. Dependent upon cardiac cath and respiratory status. Will be discharged to home when medically stable. GI Prophylaxis: Proton Pump Inhibitor VTE Prophylaxis: Other (heparin gtt) Resuscitation Status: CPR: Attempt Resuscitation Time spent 25 minutes Attending Statement I have seen and evaluated patient at bedside addition to directly supervising care provided by resident physician Dr. Winslow. I agree with above documentation from evaluation on 12/20/2016 Note patient's troponinemia needs to be considered in conjunction with extensive cardiovascular disease, with previous history of bypass grafting in persistent occlusion noted on previous evaluations. Continue to appreciate cardiology consultation and recommendations, awaiting likely cardiac catheterization possible tomorrow. KAMILA WINSLOW DO Dec 20, 2016 06:49 Jakub Srivastava DO Dec 20, 2016 19:00
--- NOTE | 2016-12-20 17:00 | DRSVH ---
[facility] [address] [place] [address] Echocardiogram Report Name: KATIE NGUYEN WStudy Date : 12/20/2016 Height: 73 in Hospital Exam Location: [facility] Weight: 218 lb Gender: Male BSA: 2.2 m2 : 1935 Age: 81 yrs BP: 123/ 78 mmHg Reason For Study: DYSPNEA Ordering Physician: HOSPITALIST [facility] Performed By: Rigo Man Referring Physician: XIMENA SALAMANCA Interpretation Summary Limited echo for wall motion. Normal sinus rhythm with frequent PVC's. Patient appears to be mostly RV paced. Mildly dilated LV; normal wall thickness. There is basal inferior, mid- inferior, basal inferoseptal. mid-inferoseptal, distal septal, distal inferior and distal lateral hypokinesis. Wall motion characterization is complicated by RV pacing and frequent PVC's. Mitral valve leaflets are normal; moderate MAC; moderate MR. Aortic valve leaflets are normal; trace AI. Compared to prior study 11/16/2016 LV is less dynamic. RV pacing frequency increased dramatically. PVC's increased dramatically. Focal WMA's in PDA distribution are unchanged. Procedure: A limited 2D color echocardiogram was performed on a patient with dyspnea. He developed 3 out of 10 chest pain near end of exam. The study quality was technically good. Comparison is made with the echocardiogram of 11/16/16. The patient has a paced rhythm. Left Ventricle: Left ventricular wall thickness is borderline increased. The left ventricle is normal in size. The ejection fraction is estimated to be 35-40%. Compared to the prior exam, left ventricular function is significantly decreased. Apical wall motion abnormality may reflect pacemaker activation. There is hypokinesis of the inferior wall that is more prominent at the mid level. There is hypokinesis of the distal anterior wall, mid vic and inferolateral to distal lateral wall, and apex. Assessment of diastolic parameters indicates a relaxation abnormality of the left ventricle, consistent with normal filling pressures. Right Ventricle: The right ventricle is grossly normal size. There is a pacemaker lead in the right ventricle. Right ventricular systolic function is mild to moderately reduced. Mitral Valve: The mitral valve leaflets are slightly calcified. There is moderate mitral annular calcification. There is moderate mitral regurgitation. Aortic Valve: The aortic valve is trileaflet. There is mild aortic valve sclerosis. There is no hemodynamically significant valvular aortic stenosis. There is trace aortic regurgitation. Tricuspid Valve: The tricuspid valve is not well visualized, but is grossly normal. There is mild tricuspid regurgitation. The right ventricular systolic pressure is estimated at least 42 mmHg assuming a right atrial pressure of 8 mm Hg. Pulmonic Valve: The pulmonic valve is not well seen, but is grossly normal. There is mild pulmonic regurgitation. Great Vessels: The IVC is dilated (diameter is greater than 2.1 cm) yet it collapses greater than 50% with a sniff. This suggests a right atrial pressure of 8 mm Hg. Pericardium/ Pleura There is no pericardial effusion. MMode/2D Measurements & Calculations IVC diam: 2.4 cm EDV(MOD-sp2): 89.0 ml RVD1 (basal): 3.8 cm TAPSE: 1.5 cm ESV(MOD-sp2): 57.4 ml EF(MOD-sp2): 35.5 % Doppler Measurements & Calculations Ao V2 max MV E max kedar MV E/A: 0.87 TR max kedar : 129.5 cm/sec : 92.9 cm/sec : 290.5 cm/sec Ao max P.7 mmHg MV A max kedar TR max PG Ao mean P.7 mmH.6 cm/sec : 33.9 mmHg LVOT Max Kedar : 87.0 cm/sec sev ratio: 0.61 MV dec time Ao V2 mean LV V1 max PG : 0.27 sec : 92.1 cm/sec Ao V2 VTI: 29.4 cm LV V1 VTI : 17.9 cm Reading Physician:04:58 PM
[2016-12-20] MEDS: Insulin LISPRO 300 Unit/3 mL Inj SUBQ SCH ×2 (17:30→20:22)
--- NOTE | 2016-12-20 18:44 | NUR ---
Chest pain Pt c/o 8/10 chest pain that is across his chest and sharp/stabbing this AM. Ordered stat ECG, gave 2mg IV morphine with good effect and notified MD. Cardiology consult, started nitro gtt at 25mcg/min per [place] and then was able to titrate down to 10 with no chest pain and BP WNL and MAP in the 60-70s. Plan is to go to electronic lab technician tomorrow, depending on what protocol is for C. Diff precautions per cardiology, NPO after midnight.
[2016-12-21] VITALS (14 sets, daily range): BP systolic 98–143; BP diastolic 48–96; PULSE 53–87; RESP 13–24; O2SAT 90–97
[2016-12-21] MEDS: Sodium Chloride LOK Flush 10 mL Syringe IVFLUSH SCH ×4 (00:30→16:30)
[2016-12-21] MEDS: Vancomycin 125 mg Oral Capsule PO SCH ×4 (03:01→21:57)
--- NOTE | 2016-12-21 04:46 | NUR ---
BLOOD SUGARS Pt hypoglycemic on assessment @ 63, offered sugary foods, rechecked @ 127. Pt denied chest pain or SOB. Pt NPO after midnight for possible analyst microbiology lab. Hep gtt @ 1250 unit/hr, nitro @ 10 mcg/min.
[2016-12-21] MEDS: Insulin LISPRO 300 Unit/3 mL Inj SUBQ SCH ×4 (08:00→21:58)
[2016-12-21 08:11] LABS: APPEARANCE,URINE CLEAR (CLEAR,HAZY); COLOR,URINE YELLOW (YELLOW); OCCULT BLOOD,URINE SMALL (NEGATIVE); PH,URINE 5.5 (5.0-8.0); UROBILINOGEN,URINE NORMAL (NORMAL)
[2016-12-21 08:17] LABS: BASOPHILS % (AUTO) 0.6 % (0-3); EOSINOPHILS % (AUTO) 9.3 % (0-5); MONOCYTES % (AUTO) 8.9 % (4-12); Mean Corpuscular Hemoglobin 30.1 pg (27.0-35.0); Mean Corpuscular Volume 90.8 fL (81-100); NEUTROPHILS % (AUTO) 61.6 % (40-74); Platelet Count 161 bil/L (150-400)
[2016-12-21] MEDS ORDERED: Sodium Bicarb 8.4% Inj 150 MEQ in Dextrose 5% 1,000 ML IV ONE (09:16)
[2016-12-21] MEDS ORDERED: 0.9% Sodium Chloride 1,000 ML ONE (09:18)
[2016-12-21] MEDS ORDERED: Heparin 10,000 Unit/1,000 mL NS Premix IV ONE (09:18)
[2016-12-21] MEDS ORDERED: Heparin 1,000 Units/500 mL NS Premix IV ONE (09:18)
[2016-12-21] MEDS ORDERED: 0.9% Sodium Chloride 1,000 ML IV ONE (09:18)
[2016-12-21] MEDS: Nitroglycerin 50 mg/250 mL D5W 50,000 MCG in IV Premix 1 EACH IV SCH (09:45)
[2016-12-21] MEDS ORDERED: fentaNYL-PF 50 mCg/mL 2 mL Inj ONE (09:47)
--- NOTE | 2016-12-21 11:00 | NUR ---
FROM [employer]. REPORT RECEIVED
[2016-12-21] MEDS ORDERED: 0.9% Sodium Chloride 250 ML BOLUS IV PRN (12:00)
[2016-12-21] MEDS ORDERED: 0.9% Sodium Chloride 400 ML (4 HRS) IV ONE (12:00)
[2016-12-21] MEDS ORDERED: Ondansetron 2 mg/mL 2 mL Inj IVPUSH PRN (12:00)
[2016-12-21] MEDS ORDERED: Atropine 1 mg/10 mL (Code) Syringe IVPUSH PRN (12:00)
[2016-12-21] MEDS: Insulin GLARgine 100 Unit/mL Syringe SUBQ SCH (13:57)
[2016-12-21] MEDS: MeTOProlol XL 50 mg ER24 Tablet PO SCH (13:58)
--- NOTE | 2016-12-21 15:29 | NUR ---
Social Work Note: Initial Assessment Data& Assessment: EMR reviewed. SW met with pt and pt at bedside to discuss discharge planning, SW role explained. Rios Montoya is a 81 year old male admitted on 12/19/2016 for NSTEMI. Pt is a readmission from a discharge earlier that day. Per pt, he began to experience chest pain and had to come back to the ED. Pt was admitted and went to the director of cath lab today. Pt has [facility] plan of [facility] and sees [facility] for primary care. Pt lives in [place] with his in a one story home in a halfway community. Pt drives and uses a cane at baseline. Pt independent with ADL's. Pt does not have SNF or HH hx. Pt does not have LTC insurance or VA benefits. Pt has DPOA/Advance directive paperwork completed. SW requested a copy. Pt to transport pt home when medically ready. Pt and pt provided with "Your Discharge planning Checklist" Booklet to review prior to D/C. Pt and pt deny any other needs. No other discharge needs identified at this time. SW to continue to follow for MD orders if they arise. Plan: Anticipated discharge home via POV when medically ready. Pt and pt deny any other needs. No other discharge needs identified at this time. SW to continue to follow for MD orders if they arise. ENRIQUE Ramirez Addendum: 12/21/16 at 1533 by BILLIE MENDEZ Amended: Links added.
--- NOTE | 2016-12-21 15:54 | PCM.PNMED ---
Subjective Date of Service Dec 21, 2016 Subjective Overnight there were no acute events. This morning Mr. Montoya tells me he is frustrated with his current care because medication will not help his condition. He would like us to stent him or send him to [facility] for another CABG. He has no other complaints at this time and denies any fevers, chills, nausea, vomiting, chest pain or SOB. Exam Vital Signs Vital Sign - Last Date Time Temp Pulse Resp B/P Pulse Ox O2 Delivery O2 Flow Rate FiO2 12/21/16 13:12 36.6 64 20 120/78 97 Room Air 12/21/16 09:30 2.00 Intake and Output 12/20/16 12/20/16 12/21/16 Cumulative From/Thru 15:00 23:00 07:00 12/19/16 17:44 - 12/21/16 06:21 Intake Total 1324 ml 465 ml 1935 ml Output Total 600 ml 600 ml 1200 ml Balance 724 ml -135 ml 735 ml Intake Oral 1160 ml 200 ml 1360 ml IV Total 164 ml 265 ml 575 ml Output Urine Total 600 ml 600 ml 1200 ml # Voids 1 3 # Bowel Movements 2 Exam Gen: Elderly male laying in bed in NDA, pleasant and cooperative HEENT: Normocephalic, atraumatic.PEERLA, EOMI. Membranes pink and moist without cobblestoning Neck: Neck supple with full range of motion, no thyromegaly or JVD CV: RRR, normal S1/S2, no murmurs/rubs/gallops. Pulm: CTA bilaterally, no wheezing/rales/rhonchi Abdomen: Soft, Non-tender, Non-distended, Normoactive bowel tones. Extremities: No edema, cyanosis, or clubbing. Neurological: A&Ox3. CN2-12 intact. Muscle strength normal in all extremities, no focal deficits. Psych: Frustrated but otherwise normal mood and affect. Interacting appropriately. IVs and Medications Medications Reviewed: Medications were reviewed in detail Lab and Diagnostics Result Diagram: 12/21/16 0747 12/21/16 0747 X-Rays, CTs and MRIs PROCEDURE: X-RAY CHEST ONE VIEW, PORTABLE ([id number]) IMPRESSION: 1. Bandlike left basilar opacities compatible with atelectasis or developing consolidation. Dictated by: Fredrick Genao M.D. on 12/19/2016 at 19:35 Approved by: Fredrick Genao M.D. on 12/19/2016 at 19:37 PROCEDURE: CT BRAIN WITHOUT CONTRAST ([id number]) IMPRESSION: 1. No acute intracranial abnormality. 2. Mild chronic white matter small vessel ischemic changes and cerebral volume loss. Dictated by: Fredrick Genao M.D. on 12/19/2016 at 19:24 Approved by: Fredrick Genao M.D. on 12/19/2016 at 19:26 Cardiac Echo Impressions Echo 12/20/16 Limited echo for wall motion. Normal sinus rhythm with frequent PVC's. Patient appears to be mostly RV paced. Mildly dilated LV; normal wall thickness. There is basal inferior, mid- inferior, basal inferoseptal. mid-inferoseptal, distal septal, distal inferior and distal lateral hypokinesis. Wall motion characterization is complicated by RV pacing and frequent PVC's. Mitral valve leaflets are normal; moderate MAC; moderate MR. Aortic valve leaflets are normal; trace AI. Compared to prior study 11/16/2016 LV is less dynamic. RV pacing frequency increased dramatically. PVC's increased dramatically. Focal WMA's in PDA distribution are unchanged. Assessment & Plan 81year old male with past medical history of CAD s/p CABG (1999), h/o VT, diabetes, HLD, CKD stage 3, CHF s/p AICD placement, and recent stent placement ( 11/2016) and discharge on 12/19 presenting to [facility] with readmission due to chest pain and SOB that occurred shortly after discharge. Elevated troponin in the context of known coronary artery disease, present on admission, improving. - Continue ASA 81mg, plavix 75mg, and metoprolol daily, Pt allergic to statins - HgbA1c 12/17 8.9, lipid panel completed on 12/17, please refer to EMR - Troponins 0.023 --> 0.04 --> 0.025 - Pt on heparin and nitro drip - EKG uninterpretable due to chronic RV pacing and free frequent PVCs are noted. - ECHO as above - Cardiology consulted, appreciate recommendations - Pt was taken to cardiac labor relations teacher 12/21; stent placed Enterocolitis due to clostridium difficile, present on admission. Active. - C. diff tox positive via stool PCR. - Isolation precautions, enteric - Procalcitonin 0.12, WBC within normal limits - 125 mg PO Q6 Oral vancomycin. Dyspnea with exertion, acute, present on admission. improving - Elevated BNP from recent admission -Pt denies fever/chills, nausea/vomiting, productive cough - CXR with possible new consolidation - ProCalc 0.12, WBC within normal limits - DuoNeb One time ordered. - Continue to monitor Chronic systolic congestive heart failure, present on admission. Stable. - Ejection fraction per echocardiogram 35-40% Headache, acute, POA. Resolved. - Likely iatrogenic, due to nitro - CT head non-contrast negative for acute bleed (reviewed on admission) - Symptomatic management, low likelihood for meningitis however will monitor closely Congestive heart failure, chronic. - Continue metoprolol - No NERY inhibitor at this time given renal function CKD stage 3, chronic, POA - Creatinine at baseline - Continue to monitor, avoid nephrotoxic meds HTN, controlled - continue medications as above Type 2 diabetes mellitus, uncontrolled - hgbA1c 8.0 - Continue Lantus 42 U in AM - Hold glipizide - Nutritional and Low correctional Lispro scale. Hyperlipidemia, chronic, POA - Patient unable to take statins d/t allergy Acetaminophen for mild pain when necessary. Bowel regimen Senna and MiraLAX scheduled and PRN. Zofran when necessary for nausea and vomiting. SubQ heparin ggt for now. SCDs in place. High-risk medications: IV Morphine PO Vancomycin IV Heparin ggt Disposition: Patient likely here for > 2 midnights, dependent upon cardiac cath and respiratory status. Will be discharged to home when medically stable. Pain Evaluation: Adequate Pain Control GI Prophylaxis: Proton Pump Inhibitor VTE Prophylaxis: Other (heparin gtt) Resuscitation Status: CPR: Attempt Resuscitation Attending Statement The patient was seen and examined together with Dr. Chawla on 12/21/2016 and I agree with the history, exam and plan as outlined in the note above. . Delano Chawla DO Dec 21, 2016 14:22 Rogerio Chapa MD Dec 21, 2016 17:35
--- NOTE | 2016-12-21 16:42 | PROG NOTE ---
[address] [address] PROGRESS NOTE PATIENT: KATIE NGUYEN : 1935 MR#: [id number] ADMIT: 12/19/2016 JOB ID: [id number] DATE: 12/21/2016 SUBJECTIVE: Overnight, the patient had no recurrence of chest discomfort. He has been tolerating nitroglycerin drip with no problems. OBJECTIVE: Vital signs: Temperature 36.6, blood pressure 98/54 up to 123/76, pulse 64 up to 87 beats per minute. He is satting 92% to 97% on 2 L nasal cannula. PHYSICAL EXAMINATION: Very pleasant, elderly man in no apparent distress. Eyes: No scleral icterus. Heart normal S1, S2. No murmurs. Neck is supple. No lymphadenopathy. No carotid bruits. Lungs: Clear to auscultation anteriorly. Abdomen is soft, positive bowel sounds. No hepatosplenomegaly. Extremities well perfused. No clubbing, cyanosis, or edema. Skin: No rashes or lesions. LABORATORIES: Reviewed. He is a little bit anemic. Hematocrit is 34%. Platelet count is normal. Creatinine is 1.5. Lipids are not quite at goal. ASSESSMENT AND PLAN: This is an 81-year-old man. He bounced back with Clostridium difficile colitis. He has been cathed this morning, and he has no evidence of progressive coronary artery disease. His catheterization shows basically exactly the same findings as the diagnostic cath performed November 19, 2016. 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 He had patent JONES to LAD, patent vein graft to PDA, patent vein graft to diagonal and the previously deployed stent in that graft is also patent. He has documented occluded vein graft to ramus intermedius and circumflex. Stent management: The patient had a drug-eluting stent deployed to the vein graft to the diagonal branch. Continue dual antiplatelet therapy ideally at least until November 23, 2017. Antianginal medication: As an outpatient, he was on both atenolol and metoprolol tartrate. I recommend consolidating his antianginal medication and just doing metoprolol succinate 200 mg once a day. Continue isosorbide mononitrate 60 mg daily and amlodipine 2.5 mg daily. We will stop the nitroglycerin drip since there is no evidence of progressive coronary artery disease. Today, will be increasing amlodipine from 2.5 mg daily up to 5 mg daily and see how he tolerates that. I plan to stop the heparin drip since he does not have a heart attack and I plan to stop the nitroglycerin drip since things are doing okay as far as the coronary artery disease. Lipid management: Patient declines statin drugs because he is intolerant of them. He has apparently attempted simvastatin and atorvastatin and not willing to try any additional medication. Thank you very much for the opportunity to evaluate him.
--- NOTE | 2016-12-21 16:52 | CS94 ---
[address] [address] DIAGNOSTIC CARDIAC CATHETERIZATION PATIENT: KATIE NGUYEN : 1935 MR#: [id number] ADMIT: 12/19/2016 JOB ID: [id number] SERVICE DATE: 12/21/2016 PATIENT PROFILE: The patient is an 81-year-old male who underwent coronary artery bypass surgery x5 17 years ago utilizing JONES to the LAD, vein graft to diagonal, vein graft to the ramus, vein graft to the obtuse marginal and vein graft to the PDA. He had stent placement to the vein graft to the diagonal branch on November 23, 2016. The patient presented with acute coronary syndrome. PROCEDURE: 1. Retrograde left heart catheterization. 2. Selective coronary angiography. 3. Internal mammary angiography. 4. Saphenous vein graft angiography. 5. Vascular closure device Perclose. COMPLICATIONS: None. PROCEDURAL DESCRIPTION: Retrograde left heart catheterization was performed from the right groin under 1% lidocaine local anesthesia using a 6-Emirati sheath. Selective coronary angiogram was performed in multiple projections, including cranial and caudal angulations with hand injected contrast via JL4 and 3DRC catheters. A 4-Emirati IM catheter was used for internal mammary angiography. An AR modified catheter and LCB catheter were used for saphenous vein graft injection. A 5-Emirati angulated pigtail catheter was advanced to the left ventricle and left ventricular pressure was obtained. Right femoral angiogram was performed. Following sheath removal, hemostasis was achieved by using a Perclose device. The patient tolerated the procedure well. He was transferred to [facility] in good condition. TOTAL CONTRAST USED: 85 cc. FLUOROSCOPY TIME: 4.6 minutes. TOTAL RADIATION DOSE: 697 milligray. RESULTS: 1. Selective coronary angiogram; a. Left main coronary artery is normal. b. The left anterior descending artery is subtotally occluded in the proximal portion and becomes totally occluded after the takeoff of the 2nd small septal branch. c. The circumflex artery has minor irregularity of 20% stenosis in the proximal portion. Obtuse marginal branch is occluded. d. The right coronary artery is occluded at its origin. 2. The left internal mammary artery graft to the left anterior descending artery is an excellent conduit with excellent distal anastomosis. The left anterior descending artery distal to the graft anastomosis has focal 30% to 40% stenosis in the midportion. 3. Two saphenous vein grafts are occluded. 4. The saphenous vein graft to the right posterior descending branch has 40% stenosis in the proximal portion in the body of this graft. There is a 70% stenosis in the sioux right coronary artery right at the bifurcation of the right posterior descending and posterolateral branch. The right posterior descending branch has 80% stenosis at its origin. The right posterolateral branch has 50% stenosis at its origin. This lesion is not amenable to percutaneous coronary intervention due to acute angulation of the graft anastomosis. 5. The saphenous vein graft to the diagonal branch remains patent with excellent distal anastomosis and distal runoff. The previous stent site remains patent. 6. Aortic pressure is 135/47/55 mmHg. Left ventricular pressure is 135/23 mmHg. 7. Left ventricular end-diastolic is 33 mmHg. CONCLUSION: 1. Occluded left anterior descending with patent left internal mammary artery graft to the left anterior descending and patent saphenous vein graft to the diagonal. 2. Occluded ramus with occluded saphenous vein graft to the ramus. 3. Minor disease of the circumflex artery with occluded obtuse marginal branch and occluded saphenous vein graft to the obtuse marginal branch. 4. Occluded right coronary artery with patent saphenous vein graft to the right posterior descending branch. However, there is severe stenosis at the bifurcation lesion of the origin of the posterior descending and posterolateral branch. This lesion is not amenable to percutaneous coronary intervention. 5. LVEDP is 33 mmHg. MTDD
--- NOTE | 2016-12-21 18:42 | NUR ---
Tele/Groin site/Leg numbness No reports of chest pain/pressure/discomfort. Tele switches between A/AV paced 70s-80s with bigem PVCs. No reports of SOB at rest, reports some SOB with exertion. SPO2 on 2L 92-95%, 90-91% on RA. Reports rare dry cough from sinus drainage. Decreased breath sounds in bases. No reports of n/v or abdominal pain, does report abdominal bloating. BM on 12/20 was diarrhea -- on contact enteric precautions, positive for C.diff. Voiding via urinal without complication. No BM this shift. Alert and oriented x3, ROSA, reports left lower extremity/foot numbness post "vein stripping for my heart, the feeling never came back". Patient reports to RN that his left upper leg is now numb, but that it can "come and go". Right groin site shows no oozing/swelling/hematoma.
--- NOTE | 2016-12-21 22:59 | NUR ---
Pt complaint Answered call light at 2139. Pt angry and yelling that nobody had been in to see him since 6 PM. Said he was going to leave [facility] and his was coming to get him. "This place is a dump and you are flunkies and it's 4th [place] for blood clots and I'm leaving." freight team associate in to talk with patient. came in as well. Stated she's not happy at spending the night, as "it's my 11th night here." Pt has decided to spend the night. freight team associate in to speak with pt and after speaking with her and his , he decided to spend the night. Please note that pt was rounded on at 1900 for handoff with offgoing RN, rounded on at 2000, and appeared to be sleeping, although he now states that he wasn't sleeping, and rounded on with vitals at 2130.
[2016-12-22] VITALS (10 sets, daily range): BP systolic 113–141; BP diastolic 54–76; PULSE 55–78; RESP 20–22; O2SAT 90–95
[2016-12-22] MEDS: Sodium Chloride LOK Flush 10 mL Syringe IVFLUSH SCH ×8 (00:30→20:38)
[2016-12-22] MEDS: Vancomycin 125 mg Oral Capsule PO SCH ×4 (01:59→20:33)
[2016-12-22 05:41] LABS: BASOPHILS % (AUTO) 0.4 % (0-3); MONOCYTES % (AUTO) 9.3 % (4-12); Mean Corpuscular Hemoglobin 30.1 pg (27.0-35.0); Mean Corpuscular Volume 89.5 fL (81-100); NEUTROPHILS % (AUTO) 59.8 % (40-74); Platelet Count 157 bil/L (150-400)
--- NOTE | 2016-12-22 06:01 | NUR ---
mentation/tele Pt continues to be extremely irritable with every encounter. Angry at being awakened for vitals. Later, yelled at chemical lab supervisor to go pick up man garbage off the floor, etc. Continue with explaining all procedures in detail and allowing him decision making. Grouped care to minimize sleep interruptions. remains at bedside. Appears to have rested/slept much of night. Tele continues paced with PVC's in 70's and 80's. Right groin site soft and intact without bruising or other adverse symptoms.
[2016-12-22] MEDS: Insulin LISPRO 300 Unit/3 mL Inj SUBQ SCH ×4 (08:00→20:38)
[2016-12-22] MEDS: MeTOProlol XL 50 mg ER24 Tablet PO SCH (08:58)
[2016-12-22] MEDS: Insulin GLARgine 100 Unit/mL Syringe SUBQ SCH (09:00)
[2016-12-22] MEDS: Isosorbide Mononitrate 60 mg ER24 Tablet PO SCH (09:15)
[2016-12-22] MEDS ORDERED: 0.9% Sodium Chloride 1,000 ML IV SCH (11:20)
--- NOTE | 2016-12-22 12:52 | PCM.PNMED ---
Subjective Date of Service Dec 22, 2016 Subjective Overnight there were no acute events. This morning Mr. Montoya has no complaints. He is frustrated that no cardiac intervention can be here done at [facility] and doesn't understand why he can't be taken to [place] for another CABG. I spent a good amount of time with both Mr. Montoya and his today, discussing his health and what his options of care are. Exam Vital Signs Vital Sign - Last Date Time Temp Pulse Resp B/P Pulse Ox O2 Delivery O2 Flow Rate FiO2 12/22/16 11:08 71 12/22/16 09:04 36.5 20 141/76 92 Room Air 12/21/16 09:30 2.00 Intake and Output 12/21/16 12/21/16 12/22/16 Cumulative From/Thru 15:00 23:00 07:00 12/19/16 17:44 - 12/22/16 05:11 Intake Total 1193 ml 560 ml 3688 ml Output Total 500 ml 700 ml 2400 ml Balance -500 ml 493 ml 560 ml 1288 ml Intake Oral 800 ml 2160 ml IV Total 393 ml 560 ml 1528 ml Output Urine Total 500 ml 700 ml 2400 ml # Voids 3 # Bowel Movements 0 2 Exam Gen: Elderly male laying in bed in NDA, agitated and threatening to leave HEENT: Normocephalic, atraumatic.PEERLA, EOMI. Membranes pink and moist without cobblestoning Neck: Neck supple with full range of motion, no thyromegaly or JVD CV: RRR, normal S1/S2, no murmurs/rubs/gallops. Pulm: Slight crackles at the bases bilaterally, no wheezing/rales/rhonchi Abdomen: Soft, Non-tender, Non-distended, Normoactive bowel tones. Extremities: No edema, cyanosis, or clubbing. Neurological: A&Ox3. CN2-12 intact. Muscle strength normal in all extremities, no focal deficits. Psych: Frustrated but otherwise normal mood and affect. IVs and Medications Medications Reviewed: Medications were reviewed in detail Lab and Diagnostics Result Diagram: 12/22/1652912/22/16529 X-Rays, CTs and MRIs PROCEDURE: X-RAY CHEST ONE VIEW, PORTABLE ([id number]) IMPRESSION: 1. Bandlike left basilar opacities compatible with atelectasis or developing consolidation. Dictated by: Fredrick Genao M.D. on 12/19/2016 at 19:35 Approved by: Fredrick Genao M.D. on 12/19/2016 at 19:37 PROCEDURE: CT BRAIN WITHOUT CONTRAST ([id number]) IMPRESSION: 1. No acute intracranial abnormality. 2. Mild chronic white matter small vessel ischemic changes and cerebral volume loss. Dictated by: Fredrick Genao M.D. on 12/19/2016 at 19:24 Approved by: rFedrick Genao M.D. on 12/19/2016 at 19:26 Cardiac Echo Impressions Echo 12/20/16 Limited echo for wall motion. Normal sinus rhythm with frequent PVC's. Patient appears to be mostly RV paced. Mildly dilated LV; normal wall thickness. There is basal inferior, mid- inferior, basal inferoseptal. mid-inferoseptal, distal septal, distal inferior and distal lateral hypokinesis. Wall motion characterization is complicated by RV pacing and frequent PVC's. Mitral valve leaflets are normal; moderate MAC; moderate MR. Aortic valve leaflets are normal; trace AI. Compared to prior study 11/16/2016 LV is less dynamic. RV pacing frequency increased dramatically. PVC's increased dramatically. Focal WMA's in PDA distribution are unchanged. Additional Diagnostics Cardiac Catheterization, 12/21/16 1. Selective angiogram; a. Left main coronary artery is normal. b. The left anterior descending artery is subtotally occluded in the proximal portion and becomes totally occluded after the takeoff of the 2nd small septal branch. c. The circumflex artery has minor irregularity of 20% stenosis in the proximal portion. Obtuse marginal branch is occluded. d. The right coronary artery is occluded at its origin. 2. The left internal mammary artery graft to the left anterior descending artery is an excellent conduit with excellent distal anastomosis. The left anterior descending artery distal to the graft anastomosis has focal 30% to 40% stenosis in the midportion. 3. Two saphenous vein grafts are occluded. 4. The saphenous vein graft to the right posterior descending branch has 40% stenosis in the proximal portion in the body of this graft. There is a 70% stenosis in the [place] right coronary artery right at the bifurcation of the right posterior descending and posterolateral branch. The right posterior descending branch has 80% stenosis at its origin. The right posterolateral branch has 50% stenosis at its origin. This lesion is not amenable to percutaneous coronary intervention due to acute angulation of the graft anastomosis. 5. The saphenous vein graft to the diagonal branch remains patent with excellent distal anastomosis and distal runoff. The previous stent site remains patent. 6. Aortic pressure is 135/47/55 mmHg. Left ventricular pressure is 135/23 mmHg. 7. Left ventricular end-diastolic is 33 mmHg. CONCLUSION: 1. Occluded left anterior descending with patent left internal mammary artery graft to the left anterior descending and patent saphenous vein graft to the diagonal. 2. Occluded ramus with occluded saphenous vein graft to the ramus. 3. Minor disease of the circumflex artery with occluded obtuse marginal branch and occluded saphenous vein graft to the obtuse marginal branch. 4. Occluded right coronary artery with patent saphenous vein graft to the right posterior descending branch. However, there is severe stenosis at the bifurcation lesion of the origin of the posterior descending and posterolateral branch. This lesion is not amenable to percutaneous coronary intervention. 5. LVEDP is 33 mmHg. Assessment & Plan 81year old male with past medical history of CAD s/p CABG (1999), h/o VT, diabetes, hyperlipidemia, Chronic kidney disease stage 3, CHF s/p AICD placement , and recent stent placement (11/2016) and discharge on 12/19 presenting to [facility] with readmission due to chest pain and SOB that occurred shortly after discharge. Elevated troponin in the context of known coronary artery disease, present on admission, improving. - Continue Aspirin 81mg, plavix 75mg, and metoprolol daily - Pt uninterested in starting statin therapy due to allergy - HgbA1c 12/17 8.9, lipid panel completed on 12/17, please refer to EMR - Troponins 0.025 before cardiac catheter procedure, will likely stay elevated due to stress response and his underlying chronic kidney disease - ECHO as above - Pt was taken to cardiac mini lab operator with Dr. Lyle on 12/21 as above, no intervention possible - Cardiology consulted, recommended placing patient back on home medications he was just discharged with and he can schedule CABG consultation at [place] as an outpatient Enterocolitis due to clostridium difficile, present on admission. Improving. - C. diff tox positive via stool PCR. - Isolation precautions, enteric - Procalcitonin 0.12, WBC within normal limits - Patient reports less diarrhea episodes - Continue 125 mg PO Q6 Oral vancomycin. Dyspnea with exertion, acute, present on admission. Stable. - Elevated BNP from recent admission - Pt denies fever/chills, nausea/vomiting, productive cough but does have basilar crackles on exam - CXR with possible new consolidation; atelectasis vs developing pneumonia - ProCalc 0.12, WBC within normal limits - Walk test to check O2 saturations ordered - Continue to monitor Chronic systolic congestive heart failure, present on admission. Stable. - Ejection fraction per echocardiogram 35-40% - Continue metoprolol succinate 200mg daily but increase amlodipine to 5mg daily per Dr. Zamudio's recommendation - Not amenable to percutaneous cardiac intervention; consider CABG consult as outpatient Headache, acute, POA. Resolved. - Likely iatrogenic, due to nitroglycerin use - CT head non-contrast negative for acute bleed (reviewed on admission) - Symptomatic management, low likelihood for meningitis however will monitor closely Congestive heart failure, chronic. - No NERY inhibitor at this time given renal function - Increase amlodipine to 5mg, metoprolol as above CKD stage 3, chronic, POA - Creatinine 1.74 today, likely elevated due to contrast with cardiac cath procedure - Gentle hydration with NS at 60ml/hr for 500ml with fluid reassessment per Dr. Blackmon's recommendation - Continue to monitor, avoid nephrotoxic meds Hypertension, controlled - Continue medications as above Type 2 diabetes mellitus, uncontrolled - HA1c 8.0 - Continue Lantus 42 U in AM - Hold glipizide - Nutritional and Low correctional Lispro scale. Hyperlipidemia, chronic, POA - Patient unable to take statins d/t allergy Acetaminophen for mild pain, headache, or fever when necessary. Bowel regimen Senna and MiraLAX scheduled as needed. Zofran when necessary for nausea and vomiting. SubQ heparin held for now. SCDs in place. High-risk medications: IV Morphine PO Vancomycin Disposition: Patient will likely be discharged in 1-2 days depending upon his response to medications, resolution of his creatinine, and improved exertional chest pain/dyspnea. Pain Evaluation: Adequate Pain Control GI Prophylaxis: Proton Pump Inhibitor VTE Prophylaxis: Other (heparin gtt) Resuscitation Status: CPR: Attempt Resuscitation Attending Statement The patient was seen and examined together with Dr. Chawla on 12/22/2016 and I agree with the history, exam and plan as outlined in the note above. . Delano Chawla DO Dec 22, 2016 12:52 Rogerio Chapa MD Dec 22, 2016 20:23
--- NOTE | 2016-12-22 14:33 | NUR ---
CDIF education/Fight with spouse/hopeless feelings Spouse and patient had many questions about CDIF diagnosis and how to care at home. Care noted printed out and provided to spouse and patient as well as verbal teaching. Pt and spouse had some sort of verbal altercation that ended with the spouse leaving and the pt appearing quite down and hopeless. Pt stated "Just give me the morphine and let me go" "I don't care anymore" and "what's the point anymore". Pt was very gracious to have this RN listening to him. This RN provided attentive listening and a calm environment. Pt eventually fell asleep and has now been resting for around one hour. Appears comfortable. NS running at 60ml/hr until 500cc complete per MD order.
--- NOTE | 2016-12-22 15:48 | NUR ---
Walk test/Respiratory Pt Ps02 on RA 96%. While ambulating on a walk, went as low as 91%. Upon returning from the walk and sitting down, O2 back up to 95%. Pt C/O slight SOB but able to complete walk with no issues.
[2016-12-23] VITALS (7 sets, daily range): BP systolic 119–144; BP diastolic 67–78; PULSE 58–82; RESP 18–24; O2SAT 91–94
[2016-12-23] MEDS: Vancomycin 125 mg Oral Capsule PO SCH ×4 (03:07→20:35)
[2016-12-23 06:27] LABS: BASOPHILS % (AUTO) 0.6 % (0-3); EOSINOPHILS % (AUTO) 9.9 % (0-5); MONOCYTES % (AUTO) 9.1 % (4-12); Mean Corpuscular Hemoglobin 30.3 pg (27.0-35.0); Mean Corpuscular Volume 89.4 fL (81-100); NEUTROPHILS % (AUTO) 58.7 % (40-74); Platelet Count 179 bil/L (150-400)
--- NOTE | 2016-12-23 07:31 | NUR ---
Cardiac/O2 Pt denied chest pain overnight, tele mostly w/ AV pacing and PVCs. States at times he feels trouble breathing at night but this is relieved by putting HOB up and having nursing there to talk to him. Pt was reassured and listened to. Pt placed on 2L for comfort, sats maintained 93-94% on RA. NS Fluids DC'd per MD after 500mL infusion. Sats maintaining 93-94% on RA but pt had decreased LS and some crackles on auscultation. Pt putting out good amount of urine. See I&Os.
[2016-12-23] MEDS: Insulin LISPRO 300 Unit/3 mL Inj SUBQ SCH ×4 (08:00→22:32)
[2016-12-23] MEDS: Sodium Chloride LOK Flush 10 mL Syringe IVFLUSH SCH ×6 (08:30→22:35)
--- NOTE | 2016-12-23 08:58 | PROG NOTE ---
[address] [address] PROGRESS NOTE PATIENT: KATIE NGUYEN : 1935 MR#: [id number] ADMIT: 12/19/2016 JOB ID: [id number] DATE: 12/23/2016 CARDIOLOGY PROGRESS NOTE: The patient is an 81-year-old diabetic male with known chronic kidney disease who is status post CABG x5 in 1999 as well as a history of VT for which he has an ICD placed in 2009. He had an JONES to the LAD, a vein graft to the diagonal, trifurcation marginal, obtuse marginal and PDA. He has been followed by Dr. Mccallum with occasional chest discomfort. He has been treated medically because of his chronic kidney disease with creatinines as high as 2.2. He was admitted on November 16, 2016 with an N-STEMI. Although there was very subtle ST elevation noted in the inferior leads which was new with associated inferior wall hypokinesis on his echocardiogram that suggested an EF of around 55%. He was again treated medically and initially refused consideration for cardiac catheterization because of the risk for possible hemodialysis but had recurrent chest discomfort and ultimately underwent cardiac catheterization, when his creatinine improved to 1.5. His troponin peaked at 0.4. Cardiac catheterization revealed a 20%-30% left main stenosis, complete occlusion of the LAD, obtuse marginal, trifurcation marginal and proximal RCA. The vein graft to the obtuse marginal and trifurcation marginal were completely occluded. The vein graft to the PDA was patent with a 40% proximal stenosis but with complete occlusion of the PDA distal to the anastomosis with retrograde filling in the PDA. There was a patent JONES to the LAD and a 90% lesion in the vein graft to the diagonal which was successfully stented. His LVEDP was 25 mmHg. He was discharged on November 25, 2016 but was readmitted on December 17, 2016 with recurrent chest discomfort with a creatinine of 1.9 and a troponin of 0.026. He again was treated medically and his medications adjusted and he was discharged but readmitted on December 19, 2016 with recurrent chest discomfort that was relieved with IV nitroglycerin and IV heparin. His creatinine was 1.5 and his troponin peaked at 0.04. An echocardiogram now showed an ejection fraction of 35%-40% with worse inferolateral hypokinesis with a normal right ventricle and pulmonary artery pressures of 42 mmHg and a CVP of 8 mmHg with moderate MR. He underwent repeat catheterization to reassess the diagonal vein graft which was widely patent. Further imaging of the vein graft to the PDA showed that it was patent with a 40% proximal stenosis in the vein graft but closer imaging showed a 70% stenosis at the crux with an 80% stenosis at the origin of the PDA and a 50% stenosis in the origin of the distal RCA posterolateral branch, putting this distal RCA bed at risk for ischemia. However, he was not felt to be a percutaneous revascularization candidate because of the acute angulation and need to go through the vein graft. His LVEDP was 33 mmHg and medical therapy was again recommended. His creatinine has subsequently increased to 1.7. He has had no further chest discomfort but continues to complain of dyspnea predominantly with exertion but last night with some resting dyspnea although he has a somewhat inconsistent historian. He initially had stated that he wanted to pursue repeat bypass grafting. He has not ambulated. DATE: PHYSICAL EXAMINATION: Moderately obese elderly male, in no distress. HR 67, BP 144/72. O2 saturation 94% on room air. His weight is up 2.3 kg since admission. Lungs: Grossly clear to auscultation. CV : Normal S1 with a fairly prominent S2. JVP is likely 6-7 cm. Abdomen: Moderately obese but nondistended. The right femoral site appears to be well healed without any bruit. Extremities: Warm without significant edema. LABORATORY: Potassium this morning is 4.1 with a creatinine of 1.5, down from 1.7 yesterday. BUN is 20. Glucose was 101. His LDL was 123 on admission. IMPRESSION: 1. Non-ST segment elevation myocardial infarction. This likely is due to the disease in his distal RCA bed which is not amenable to revascularization. The amount of myocardium at risk appears to be relatively small and certainly would not justify repeat surgical revascularization. I have drawn a diagram of his coronary anatomy and I have explained this to the patient and he appears to understand this. Given this, I would simply continue with medical therapy hoping to control his angina with nitrates and calcium channel blockers. I suspect that his dyspnea is more likely secondary to his elevated filling pressures and may improve with diuresis although with close observation of his renal function. Given this, I will start him on furosemide today but he will require close monitoring of his renal function and electrolytes. I would like to see his blood pressures closer to 120 and I will increase his amlodipine as well. Once he is on a stable oral regimen and is medically optimized, I suspect that he can be discharged but will likely requires several more days of hospitalization to optimize his fluid balance in the setting of his chronic kidney disease. A nephrology consult may be appropriate but will be deferred to the hospitalist. 2. Hyperlipidemia. I once again explained the pathophysiology of coronary disease and the importance of lipid control. He has had previous intolerance to simvastatin and atorvastatin but does not believe he has ever tried rosuvastatin. I have again encouraged him to try all statins in an attempt to see if he can tolerate any of them as this will help maintain patency of his coronaries. He is willing to try rosuvastatin and I will initiate 5 mg daily although he is quite pessimistic. If he is unable to tolerate it, then Repatha could be considered. 3. Chronic kidney disease. Needs to be followed closely. 4. Diabetes. Appears to be fairly well controlled. 5. Hypertension. As above. PLAN: 1. [place] mild diuresis with close observation of his electrolytes and renal function. 2. Once he is adequately diuresed and his medications are optimized, I suspect that he can be discharged, likely in 1-2 days. He can followup with Dr. Mccallum. 3. Start rosuvastatin 5 mg daily with consideration for Repatha if he is intolerant. I spent 1 hour and 21 minutes reviewing the cardiac catheterization films, old medical records, examining and interviewing the patient, and answering all of his questions.
[2016-12-23] MEDS: MeTOProlol XL 50 mg ER24 Tablet PO SCH (09:35)
[2016-12-23] MEDS: Isosorbide Mononitrate 60 mg ER24 Tablet PO SCH (09:36)
[2016-12-23] MEDS: Insulin GLARgine 100 Unit/mL Syringe SUBQ SCH (09:39)
[2016-12-23] MEDS: Furosemide 10 mg/mL 2 mL Inj IVPUSH SCH (10:42)
--- NOTE | 2016-12-23 11:03 | NUR ---
[facility] signed
--- NOTE | 2016-12-23 14:24 | PCM.PNMED ---
Subjective Date of Service Dec 23, 2016 Subjective Overnight there no acute events. His saturations did hit the lower 90's during his walk test and he was short of breath, but he denied any chest pain. This morning Mr. Montoya reports feeling better after a decent nights sleep. He is still frustrated with his cardiac situation but tells me he agreed to trial a statin for 30 days. He says he is still short of breath but otherwise denies any fever/chills, chest pain, palpitations, nausea/vomiting. Exam Vital Signs Vital Sign - Last Date Time Temp Pulse Resp B/P Pulse Ox O2 Delivery O2 Flow Rate FiO2 12/23/16 09:32 36.9 58 20 128/72 91 Room Air 12/21/16 09:30 2.00 Intake and Output 12/22/16 12/22/16 12/23/16 Cumulative From/Thru 15:00 23:00 07:00 12/19/16 17:44 - 12/23/16 06:28 Intake Total 200 ml 1319 ml 635 ml 5842 ml Output Total 700 ml 2460 ml 1650 ml 7210 ml Balance -500 ml -1141 ml -1015 ml -1368 ml Intake Oral 200 ml 1054 ml 400 ml 3814 ml IV Total 265 ml 235 ml 2028 ml Output Urine Total 700 ml 2460 ml 1650 ml 7210 ml # Voids 3 # Bowel Movements 0 2 Exam Gen: Elderly male sitting upright eating breakfast in NAD HEENT: Normocephalic, atraumatic.PEERLA, EOMI. Membranes pink and moist without cobblestoning Neck: Neck supple with full range of motion, no thyromegaly or JVD CV: RRR, normal S1/S2, no murmurs/rubs/gallops. Pulm: Slight crackles at the bases bilaterally, no wheezing/rales/rhonchi Abdomen: Soft, Non-tender, Non-distended, Normoactive bowel tones. Extremities: No edema, cyanosis, or clubbing. Neurological: A&Ox3. CN2-12 intact. Muscle strength normal in all extremities, no focal deficits. Psych: Normal mood and affect. IVs and Medications Medications Reviewed: Medications were reviewed in detail Lab and Diagnostics Result Diagram: 12/23/1661412/23/16614 X-Rays, CTs and MRIs PROCEDURE: X-RAY CHEST ONE VIEW, PORTABLE ([id number]) IMPRESSION: 1. Bandlike left basilar opacities compatible with atelectasis or developing consolidation. Dictated by: Fredrick Genao M.D. on 12/19/2016 at 19:35 Approved by: Fredrick Genao M.D. on 12/19/2016 at 19:37 PROCEDURE: CT BRAIN WITHOUT CONTRAST ([id number]) IMPRESSION: 1. No acute intracranial abnormality. 2. Mild chronic white matter small vessel ischemic changes and cerebral volume loss. Dictated by: Fredrick Genao M.D. on 12/19/2016 at 19:24 Approved by: Fredrick Genao M.D. on 12/19/2016 at 19:26 Cardiac Echo Impressions Echo 12/20/16 Limited echo for wall motion. Normal sinus rhythm with frequent PVC's. Patient appears to be mostly RV paced. Mildly dilated LV; normal wall thickness. There is basal inferior, mid- inferior, basal inferoseptal. mid-inferoseptal, distal septal, distal inferior and distal lateral hypokinesis. Wall motion characterization is complicated by RV pacing and frequent PVC's. Mitral valve leaflets are normal; moderate MAC; moderate MR. Aortic valve leaflets are normal; trace AI. Compared to prior study 11/16/2016 LV is less dynamic. RV pacing frequency increased dramatically. PVC's increased dramatically. Focal WMA's in PDA distribution are unchanged. Additional Diagnostics Cardiac Catheterization, 12/21/16 1. Selective angiogram; a. Left main coronary artery is normal. b. The left anterior descending artery is subtotally occluded in the proximal portion and becomes totally occluded after the takeoff of the 2nd small septal branch. c. The circumflex artery has minor irregularity of 20% stenosis in the proximal portion. Obtuse marginal branch is occluded. d. The right coronary artery is occluded at its origin. 2. The left internal mammary artery graft to the left anterior descending artery is an excellent conduit with excellent distal anastomosis. The left anterior descending artery distal to the graft anastomosis has focal 30% to 40% stenosis in the midportion. 3. Two saphenous vein grafts are occluded. 4. The saphenous vein graft to the right posterior descending branch has 40% stenosis in the proximal portion in the body of this graft. There is a 70% stenosis in the [place] right coronary artery right at the bifurcation of the right posterior descending and posterolateral branch. The right posterior descending branch has 80% stenosis at its origin. The right posterolateral branch has 50% stenosis at its origin. This lesion is not amenable to percutaneous coronary intervention due to acute angulation of the graft anastomosis. 5. The saphenous vein graft to the diagonal branch remains patent with excellent distal anastomosis and distal runoff. The previous stent site remains patent. 6. Aortic pressure is 135/47/55 mmHg. Left ventricular pressure is 135/23 mmHg. 7. Left ventricular end-diastolic is 33 mmHg. CONCLUSION: 1. Occluded left anterior descending with patent left internal mammary artery graft to the left anterior descending and patent saphenous vein graft to the diagonal. 2. Occluded ramus with occluded saphenous vein graft to the ramus. 3. Minor disease of the circumflex artery with occluded obtuse marginal branch and occluded saphenous vein graft to the obtuse marginal branch. 4. Occluded right coronary artery with patent saphenous vein graft to the right posterior descending branch. However, there is severe stenosis at the bifurcation lesion of the origin of the posterior descending and posterolateral branch. This lesion is not amenable to percutaneous coronary intervention. 5. LVEDP is 33 mmHg. Assessment & Plan 81year old male with past medical history of CAD s/p CABG (1999), h/o VT, diabetes, hyperlipidemia, Chronic kidney disease stage 3, CHF s/p AICD placement , and recent stent placement (11/2016) and discharge on 12/19 presenting to [facility] with readmission due to chest pain and SOB that occurred shortly after discharge. Elevated troponin in the context of known coronary artery disease, present on admission, improving. - Continue Aspirin 81mg, plavix 75mg, and metoprolol daily - Pt uninterested in starting statin therapy due to allergy - HgbA1c 12/17 8.9, lipid panel completed on 12/17, please refer to EMR - Troponins 0.025 before cardiac catheter procedure, will likely stay elevated due to stress response and his underlying chronic kidney disease - ECHO as above - Patient was taken to cardiac label designer with Dr. Lyle on 12/21 as above, no percutaneous intervention possible - Cardiology consulted, recommended placing patient back on home medications he was just discharged with and he can schedule CABG consultation at [facility] as an outpatient Enterocolitis due to clostridium difficile, present on admission. Improving. - C. diff tox positive via stool PCR. - Isolation precautions, enteric - Procalcitonin 0.12, WBC continues to be within normal limits - Patient reports less diarrhea episodes - Continue 125 mg Oral vancomycin every 6 hours (day 4 of 10) Dyspnea with exertion, acute, present on admission. Stable. - Elevated BNP from recent admission - Pt denies fever/chills, nausea/vomiting, no cough but he does have bibasilar crackles on exam - CXR with possible new consolidation; atelectasis vs developing pneumonia - ProCalc 0.12, WBC continues to be within normal limits - Walk test done, patient stayed in low 90's but no chest pain - Continue to monitor Chronic systolic congestive heart failure, present on admission. Stable. - Ejection fraction per echocardiogram 35-40% - Continue metoprolol succinate 200mg daily, increased amlodipine to 5mg twice daily per Dr. Zamudio's recommendation - Not amenable to percutaneous cardiac intervention; consider CABG consult as outpatient - CHF clinic and follow up with Dr. Mccallum when discharged - No NERY inhibitor at this time given renal function - Increase amlodipine to 5mg twice daily per Dr. Zamudio, metoprolol as above Headache, acute, POA. Resolved. - Likely iatrogenic, due to nitroglycerin use - CT head non-contrast negative for acute bleed (reviewed on admission) - Symptomatic management, low likelihood for meningitis however will monitor closely CKD stage 3, chronic, POA - Creatinine fell to 1.48 12/23, down from 1.74 - Gentle diuresis initiated per Dr. Zamudio with 20mg IV Lasix - Continue to monitor, avoid nephrotoxic meds Hypertension, controlled - Continue medications as above Type 2 diabetes mellitus, uncontrolled - HA1c 8.0 - Continue Lantus 42 U in AM - Hold glipizide - Nutritional and Low correctional Lispro scale. Hyperlipidemia, chronic, POA - Patient agreed to try 5mg Rosuvastatin for 30 days Acetaminophen for mild pain, headache, or fever when necessary. Bowel regimen Senna and MiraLAX scheduled as needed. Zofran when necessary for nausea and vomiting. SubQ heparin held for now. SCDs in place. High-risk medications: IV Morphine PO Vancomycin Disposition: Patient will likely be discharged in 1-2 days depending upon his response to diuresis and medications and improved shortness of breath on exertion. Pain Evaluation: Adequate Pain Control GI Prophylaxis: Proton Pump Inhibitor VTE Prophylaxis: Other (heparin gtt) Resuscitation Status: CPR: Attempt Resuscitation Attending Statement The patient was seen and examined together with Dr. Chawla on 12/23/2016 and I agree with the history, exam and plan as outlined in the note above. . Delano Chawla DO Dec 23, 2016 09:56 Rogerio Chapa MD Dec 24, 2016 17:06
--- NOTE | 2016-12-23 15:50 | NUR ---
Diuresing/CBGs/Tele/Ambulation Pt received Lasix 20 IVP and has so far voided 2250cc today. Pale yellow urine. CBGs today so far 100 and 223. Pt received 2 units insulin. States he had some potatos with breakfast. Asymptomatic. Tele A/AV paced in the 80s with PVCs. Tele DC'd per MD order MD order for patient to be up as much as possible. Out of bed for meals and ambulating often. Pt ate breakfast and lunch in his chair, took a shower, and has been ambulating frequently. R groin site intact.
[2016-12-24] MEDS: Vancomycin 125 mg Oral Capsule PO SCH ×2 (03:20→09:18)
[2016-12-24 06:33] LABS: Magnesium 1.8 mg/dL (1.6-2.6)
[2016-12-24] MEDS: Insulin LISPRO 300 Unit/3 mL Inj SUBQ SCH ×2 (08:00→12:53)
--- NOTE | 2016-12-24 08:22 | NUR ---
Restful Night No c/o pain overnight, sats mid 90s on RA. Blood sugars 230s, 130s when reassessed. Pt out of bed independently w/ steady gait. No stools overnight.
[2016-12-24] MEDS: Furosemide 10 mg/mL 2 mL Inj IVPUSH SCH (08:30)
[2016-12-24 09:16] VITALS: BP 107/80; PULSE 66; RESP 16; O2SAT 92
[2016-12-24] MEDS: MeTOProlol XL 50 mg ER24 Tablet PO SCH (09:18)
[2016-12-24] MEDS: Sodium Chloride LOK Flush 10 mL Syringe IVFLUSH SCH ×2 (09:19)
--- NOTE | 2016-12-24 10:54 | PCM.DIMED ---
Delano Chawla DO 12/24/16 1048: Discharge Instructions Date of Service Dec 24, 2016 Dates of Hospitalization Dec 19, 2016 at 23:28 Discharge Diagnosis Discharge Diagnosis Elevated troponin in the context of known coronary artery disease Enterocolitis due to clostridium difficile Dyspnea with exertion Chronic systolic congestive heart failure Headache Congestive heart failure (systolic) CKD stage 3 Hypertension Type 2 diabetes mellitus Hyperlipidemia Medication Instructions Additional med instructions Continue the metoprolol 200mg once daily as before. Your Amlodipine has been increased to 5 mg twice daily. You were started on 5 mg of Rosuvastatin daily. Continue this until you see Dr. Camagro for evaluation. Continue taking your Aspirin and Plavix as before. This is essential to make sure your stent stays open. Continue your oral Vancomycin 125mg every 6 hours for another 5 days. Start taking Furosimide (Lasix) 20mg daily and reevaluate when you see Dr. Camargo. Follow up with Dr. Camargo in 1-2 weeks in regards to your blood pressure, medication tolerance, and statin trial. Diet Discharge Diet: Heart Healthy, Diabetic Call your provider Call your provider for: Fever or Chills, Shortness of breath, Chest pain, Excessive diarrhea Patient Instructions Patient Instructions Follow the new medication regimen outlined above. Follow up with your PCP, Dr. Briggs, in 2-3 weeks to evaluate your blood pressure and medication tolerance. Follow up with Dr. Camargo in 1-2 weeks for a medication evaluation. Follow-up Provider: Ana Maria Camargo MD Follow-up with PCP in: 1 week (1-2 weeks for mediaction evaluation) Provider: Tammy Briggs MD Follow-up in: 2 weeks (2-3 weeks for medication and BP eval) Rogerio Chapa MD 12/24/16 1701: Discharge Instructions Attending's Statement The patient was seen and examined together with Dr. Chawla on 12/24/2016 and I agree with the history, exam and plan as outlined in the note above. . Delano Chawla DO Dec 24, 2016 10:48 Rogerio Chapa MD Dec 24, 2016 17:01
[2016-12-24] MEDS ORDERED: FURO-129 PO (10:58)
[2016-12-24] MEDS ORDERED: ROSU5TAB PO (10:58)
[2016-12-24] MEDS ORDERED: AMLO5TAB2 PO (10:58)
[2016-12-24] MEDS ORDERED: VANC125C3 PO (10:58)
[2016-12-24] MEDS: Isosorbide Mononitrate 60 mg ER24 Tablet PO SCH (11:43)
[2016-12-24] MEDS: Insulin GLARgine 100 Unit/mL Syringe SUBQ SCH (11:44)
[2016-12-24 12:11] VITALS: BP 135/69; PULSE 61; RESP 20; O2SAT 95
--- NOTE | 2016-12-24 12:57 | NUR ---
Discharge Pt d/c'd from room 1029 at 1257 home via private vehicle with . MD went over discharge instructions on medications and RN confirmed d/c instructions. All d/c teaching and instructions done with at bedside. All questions and concerns addressed. All f/u appointments made and apt dates and times given to pt. IVs d/c'd intact. No items in the safe or pharmacy.
--- NOTE | 2016-12-24 15:28 | NUR ---
Social Work: Multidisciplinary Rounds/Discharge D: Pt discussed in multidisciplinary rounds. Pt is medically stable for discharge home today. MD and team express no concerns about pt's ability to care for self and identify no sw needs. EMR reviewed; pt has been ambulating I during admission and uses a cane at baseline. LAMINATION INSPECTOR met with pt and spouse at bedside to confirm discharge plan and assess for unmet needs. They agree with plan for discharge and have no concerns at this time. RN will discuss discharge medications, review appointments and instructions. A: Pt who is I at baseline. P: Pt to discharge home via [facility]
--- NOTE | 2016-12-24 16:02 | PCM.DC.MED ---
Discharge Summary Date of Service Dec 24, 2016 Dates of Hospitalization Date of Hospital Admission Dec 19, 2016 at 23:28 Date of Discharge: Dec 24, 2016 Providers: Admitting Physician: Rogerio Chapa MD Primary Care Physician: Tammy Briggs MD Attending Physician: Rogerio Chapa MD Diagnosis at Time of Discharge Diagnosis at Time of Discharge Elevated troponin in the context of known coronary artery disease Enterocolitis due to clostridium difficile Dyspnea with exertion Chronic systolic congestive heart failure Headache Congestive heart failure (systolic) CKD stage 3 Hypertension Type 2 diabetes mellitus Hyperlipidemia Consultations Dr. Childers, Cardiology Procedures XRay, CTs & MRIs PROCEDURE: X-RAY CHEST ONE VIEW, PORTABLE ([id number]) IMPRESSION: 1. Bandlike left basilar opacities compatible with atelectasis or developing consolidation. Dictated by: Fredrick Genao M.D. on 12/19/2016 at 19:35 Approved by: Fredrick Genao M.D. on 12/19/2016 at 19:37 PROCEDURE: CT BRAIN WITHOUT CONTRAST ([id number]) IMPRESSION: 1. No acute intracranial abnormality. 2. Mild chronic white matter small vessel ischemic changes and cerebral volume loss. Dictated by: Fredrick Genao M.D. on 12/19/2016 at 19:24 Approved by: Fredrick Genao M.D. on 12/19/2016 at 19:26 Cardiac Echo Impression Echo 12/20/16 Limited echo for wall motion. Normal sinus rhythm with frequent PVC's. Patient appears to be mostly RV paced. Mildly dilated LV; normal wall thickness. There is basal inferior, mid- inferior, basal inferoseptal. mid-inferoseptal, distal septal, distal inferior and distal lateral hypokinesis. Wall motion characterization is complicated by RV pacing and frequent PVC's. Mitral valve leaflets are normal; moderate MAC; moderate MR. Aortic valve leaflets are normal; trace AI. Compared to prior study 11/16/2016 LV is less dynamic. RV pacing frequency increased dramatically. PVC's increased dramatically. Focal WMA's in PDA distribution are unchanged. Other Diagnostics Cardiac Catheterization, 12/21/16 1. Selective angiogram; a. Left main coronary artery is normal. b. The left anterior descending artery is subtotally occluded in the proximal portion and becomes totally occluded after the takeoff of the 2nd small septal branch. c. The circumflex artery has minor irregularity of 20% stenosis in the proximal portion. Obtuse marginal branch is occluded. d. The right coronary artery is occluded at its origin. 2. The left internal mammary artery graft to the left anterior descending artery is an excellent conduit with excellent distal anastomosis. The left anterior descending artery distal to the graft anastomosis has focal 30% to 40% stenosis in the midportion. 3. Two saphenous vein grafts are occluded. 4. The saphenous vein graft to the right posterior descending branch has 40% stenosis in the proximal portion in the body of this graft. There is a 70% stenosis in the [place] right coronary artery right at the bifurcation of the right posterior descending and posterolateral branch. The right posterior descending branch has 80% stenosis at its origin. The right posterolateral branch has 50% stenosis at its origin. This lesion is not amenable to percutaneous coronary intervention due to acute angulation of the graft anastomosis. 5. The saphenous vein graft to the diagonal branch remains patent with excellent distal anastomosis and distal runoff. The previous stent site remains patent. 6. Aortic pressure is 135/47/55 mmHg. Left ventricular pressure is 135/23 mmHg. 7. Left ventricular end-diastolic is 33 mmHg. CONCLUSION: 1. Occluded left anterior descending with patent left internal mammary artery graft to the left anterior descending and patent saphenous vein graft to the diagonal. 2. Occluded ramus with occluded saphenous vein graft to the ramus. 3. Minor disease of the circumflex artery with occluded obtuse marginal branch and occluded saphenous vein graft to the obtuse marginal branch. 4. Occluded right coronary artery with patent saphenous vein graft to the right posterior descending branch. However, there is severe stenosis at the bifurcation lesion of the origin of the posterior descending and posterolateral branch. This lesion is not amenable to percutaneous coronary intervention. 5. LVEDP is 33 mmHg. Brief History 81yoM with past medical history of CAD s/p CABG (1999), h/o VT, diabetes, HLD, CKD stage 3, CHF s/p AICD placement, and recent stent placement (11/2016) and discharge 12/19 presenting to [facility] with admission due to recurrent chest pain on 12/19. Patient states that after arriving home following discharge on 12/19 that he became nauseated and went to take a nap. He slept for a couple of hours then woke up and went to his recliner to relax. When his came in from the patio she noticed that Mr. Montoya was having significant difficulties breathing and clutching his chest however he denies chest pain at this time. It didn't improve until he was seen at [facility]. SOB is associated with minimal exertion and new productive cough and new onset diarrhea. Patient denies fevers, chills , vomiting, lightheadedness, dizziness, PND or orthopnea at time of admit. Chest xray is concerning for possible new consolidation. As his breathing got better and his infectious markers continued to stay within normal limits, a further work up of the chest xray on admission (possible consolidation) was not done. On admission, Dr. Camargo of Cardiology was consulted and an echocardiogram was obtained. He then went to the cardiac catheterization lab with Dr. Lyle on 12/21 where it was found that his cardiac status was no amenable to percutaneous intervention. Dr. Childers optimized his medications again, on which the patient felt less short of breath and and able to function more toward his daily routine. He was discharged home with an updated medication plan, a follow up with Dr. Camargo in 1-2 weeks, and CHF clinic on board. Throughout his admission he was treated for C. difficile with oral vancomycin, 125mg every 6 hours. He was in precautions and his diarrhea improved to no episodes the final 2 days of his admission. He was discharged with another 5 days worth of oral vancomycin. Hospital Course 81year old male with past medical history of CAD s/p CABG (1999), h/o VT, diabetes, hyperlipidemia, Chronic kidney disease stage 3, CHF s/p AICD placement , and recent stent placement (11/2016) and discharge on 12/19 presenting to [facility] with readmission due to chest pain and SOB that occurred shortly after discharge. Elevated troponin in the context of known coronary artery disease, present on admission, improving. - Continue Aspirin 81mg, Plavix 75mg, Metoprolol succinate 200mg daily, Amlodipine 5mg twice daily, Lasix 20mg daily - Patient agreed to 5mg Rosuvastain for 30 day trial - Troponins 0.025 before cardiac catheter procedure, will likely stay elevated due to stress response and his underlying chronic kidney disease - ECHO as above - Patient was taken to cardiac laborer carpentry dock with Dr. Lyle on 12/21 as above, no percutaneous intervention possible; patient will schedule outpatient evaluation with Cardiothoracic Surgeon - Dr. Childers of Cardiology updated his medications as above Enterocolitis due to clostridium difficile, present on admission. Improving. - C. diff tox positive via stool PCR. - Procalcitonin 0.12, WBC continues to be within normal limits - Patient will continue 125 mg Oral vancomycin every 6 hours for 5 more days Dyspnea with exertion, acute, present on admission. Improved. - Elevated BNP from recent admission - Pt denies fever/chills, nausea/vomiting, no cough but he does have bibasilar crackles on exam - CXR with possible new consolidation; atelectasis vs developing pneumonia - ProCalc 0.12, WBC continues to be within normal limits, unlikely pneumonia - Walk test done, patient stayed in low 90's but no chest pain - Medication regimen as above Chronic systolic congestive heart failure, present on admission. Stable. - Ejection fraction per echocardiogram 35-40% - Continue metoprolol succinate 200mg daily, increased amlodipine to 5mg twice daily per Dr. Zamudio's recommendation - Not amenable to percutaneous cardiac intervention; consider CABG consult as outpatient - CHF clinic and follow up with Dr. Mccallum when discharged Headache, acute, POA. Resolved. - Likely iatrogenic, due to nitroglycerin use - CT head non-contrast negative for acute bleed Congestive heart failure, chronic. - Medication regimen as above per Dr. Childers of Cardiology - CHF clinic referral as an outpatient was done CKD stage 3, chronic, POA - Creatinine is likely around baseline 1.4-1.5, - Counseled to avoid nephrotoxins as outpatient - Holding NERY inhibitor discharged due to decline in renal function; can be reassessed on an outpatient basis - Patient was counseled on the need for a launch manager as an outpatient but uninterested at this time Hypertension, controlled - Continue medications as above Type 2 diabetes mellitus, uncontrolled - HA1c 8.0 - Restart home glipizide and Lantus regimen - Low carb diet counseled Hyperlipidemia, chronic, POA - Patient agreed to try 5mg Rosuvastatin for 30 days Disposition: Patient was discharged in improved and stable condition. He and his expressed understanding of the new medication regimen and under what condition they are to return to the hospital. Exam Vital Signs (Last) Date Time Temp Pulse Resp B/P Pulse Ox O2 Delivery O2 Flow Rate FiO2 12/24/16 12:11 36.4 61 20 135/69 95 Room Air 73/17 09:30 2.00 Exam Gen: Elderly male sitting upright eating breakfast in NAD without oxygen HEENT: Normocephalic, atraumatic.PEERLA, EOMI. Membranes pink and moist without cobblestoning Neck: Neck supple with full range of motion, no thyromegaly or JVD CV: RRR, normal S1/S2, no murmurs/rubs/gallops. Pulm: Less crackles at the lung bases bilaterally, no wheezing/rales/rhonchi Abdomen: Soft, Non-tender, Non-distended, Normoactive bowel tones. Extremities: No edema, cyanosis, or clubbing. Neurological: A&Ox3. CN2-12 intact. Muscle strength normal in all extremities, no focal deficits. Psych: Normal mood and affect. Test 12/19/16 20:35 12/20/16 01:01 12/20/16 07:45 12/21/16 07:47 Prothrombin Time 10.3sec (8.1-12.5) Prothromb Time International Ratio 0.96ratio Pro-B-Type Natriuretic Peptide 4628pg/mL (0-486) Procalcitonin 0.12ng/mL (0.00-0.08) Hold [place] Top Tube Received (Received) Urine Color Yellow (YELLOW) Urine Appearance Clear (CLEAR,HAZY) Urine pH 5.5 (5.0-8.0) Urine Specific [place] 1.020 (1.003-1.035) Urine Protein Tracemg/dL (NEG,TRACE) Urine Glucose (UA) Negativemg/dL (NEGATIVE) Urine Ketones Negativemg/dL (NEGATIVE) Urine Occult Blood Small (NEGATIVE) Urine Nitrite Negative (NEGATIVE) Urine Bilirubin Negative (NEGATIVE) Urine Urobilinogen Normalmg/dL (NORMAL) Urine Leukocyte Esterase Negative (NEGATIVE) Urine RBC 11-50/hpf (0-2) Urine WBC 0-5/hpf (0-5) Urine Epithelial Cells Few/hpf (NONE-MOD) Urine Crystals None seen (NONE SEEN) Urine Bacteria Few/hpf (NONE-FEW) Urine Hyaline Casts None/lpf (NONE) Urine Granular Casts None seen (NONE SEEN) Urine Waxy Casts None seen (NONE SEEN) Urine Red Blood Cell Casts None seen (NONE SEEN) Urine White Blood Cell Casts None seen (NONE SEEN) Urine Mucus None seen (None Seen) Urine Trichomonas None seen (NONE SEEN) Urine Yeast None (NONE SEEN) Urinalysis Comment None Urine Culture Reflexed Not indicated Hold Urine Received (Received) Troponin T 0.025ug/L (0.0-0.011) Triglycerides Level 131mg/dL (0-149) Cholesterol Level 179mg/dL (100-199) LDL Cholesterol, Calculated 122.800mg/dL (0-99) VLDL Cholesterol 26.200mg/dL HDL Cholesterol 30mg/dL (>39) Cholesterol/HDL Ratio 5.97 (0.0-4.4) Activated Partial Thromboplast Time 47.6sec (22.8-33.0) Test 12/23/16 06:15 12/24/16 05:45 White Blood Count 6.7th/mm3 (3.8-10.1) Red Blood Count 3.79mil/mm3 (4.40-5.80) Hemoglobin 11.5g/dL (13.8-17.2) Hematocrit 33.9% (41.0-50.0) Mean Corpuscular Volume 89.4fL (81-100) Mean Corpuscular Hemoglobin 30.3pg (27.0-35.0) Mean Corpuscular Hemoglobin Concent 33.9% (32.0-37.0) Red Cell Distribution Width 15.0% (12.3-15.4) Platelet Count 179bil/L (150-400) Neutrophils (%) (Auto) 58.7% (40-74) Lymphocytes (%) (Auto) 21.6% (14-46) Monocytes (%) (Auto) 9.1% (4-12) Eosinophils (%) (Auto) 9.9% (0-5) Basophils (%) (Auto) 0.6% (0-3) Total Bilirubin 0.4mg/dL (0.0-1.2) Aspartate Amino Transf (AST/SGOT) 29U/L (0-50) Alanine Aminotransferase (ALT/SGPT) 29U/L (0-44) Alkaline Phosphatase 53U/L (25-160) Total Protein 5.9g/dL (6.4-8.4) Albumin 3.4g/dL (3.4-5.0) Sodium Level 142mEq/L (134-144) Potassium Level 4.0mEq/L (3.5-5.2) Chloride Level 105mEq/L (97-108) Carbon Dioxide Level 22mmol/L (18-29) Blood Urea Nitrogen 21mg/dL (8-27) Creatinine 1.54mg/dL (0.76-1.27) Estimat Glomerular Filtration Rate 46mL/min (>59) Glucose Level 140mg/dL (60-99) Calcium Level 8.9mg/dL (8.5-10.1) Magnesium Level 1.8mg/dL (1.6-2.6) Discharge Medications Discharge Medications Amlodipine (Amlodipine) 5 Mg Tablet 5 MG PO BID Prescribed by: CARLOTTA ENCINAS DO Aspirin (Aspirin) 81 Mg Tablet 81 MG PO HS (Reported) Clopidogrel (Clopidogrel) 75 Mg Tablet 75 MG PO DAILY Prescribed by: ALIZA FUENTES MD Furosemide (Lasix) 20 Mg Tablet 20 MG PO DAILY Prescribed by: CARLOTTA ENCINAS DO Glipizide (Glipizide) 5 Mg Tablet 10 MG PO BID (Reported) Insulin Glargine (Lantus U100 Insulin Vial) 100 Unit/Ml Vial 42 UNIT SUBQ QAM ( Reported) Isosorbide MN ER (Isosorbide MN ER) 60 Mg Tab.er.24h 60 MG PO DAILY (Reported) Metoprolol Succinate ER (Metoprolol Succinate ER) 200 Mg Tab.er.24h 200 MG PO DAILY Prescribed by: MEDARDO MILLER DO Rosuvastatin Calcium (Crestor) 5 Mg Tablet 5 MG PO DAILY Prescribed by: CARLOTTA ENCINAS DO Vancomycin (Vancomycin) 125 Mg Capsule 125 MG PO Q6 Prescribed by: CARLOTTA ENCINAS DO As needed Nitroglycerin SL (Nitroglycerin SL) 0.4 Mg Tab.subl 0.4 MG SL PRN PRN PRN CHEST PAIN take one every 5 min for 3 doses for chest pain, call 911 if not better Prescribed by: ALIZA FUENTES MD Pantoprazole DR (Pantoprazole DR) 40 Mg Tablet.dr 40 MG PO DAILY PRN PRN For Dyspepsia or Heartburn (Reported) Additional med instructions Continue the metoprolol 200mg once daily as before. Your Amlodipine has been increased to 5 mg twice daily. You were started on 5 mg of Rosuvastatin daily. Continue this until you see Dr. Camargo for evaluation. Continue taking your Aspirin and Plavix as before. This is essential to make sure your stent stays open. Continue your oral Vancomycin 125mg every 6 hours for another 5 days. Start taking Furosimide (Lasix) 20mg daily and reevaluate when you see Dr. Camargo. Follow up with Dr. Camargo in 1-2 weeks in regards to your blood pressure, medication tolerance, and statin trial. Followup Plan Discharge Diet: Heart Healthy, Diabetic Patient Instructions Follow the new medication regimen outlined above. Follow up with your PCP, Dr. Briggs, in 2-3 weeks to evaluate your blood pressure and medication tolerance. Follow up with Dr. Camargo in 1-2 weeks for a medication evaluation. Follow-up Provider: Ana Maria Camargo MD Follow-up with PCP in: 1 week (1-2 weeks for mediaction evaluation) Provider: Tammy Briggs MD Follow-up in: 2 weeks (2-3 weeks for medication and BP eval) copies to: Tammy Briggs MD; Ana Maria Camargo MD, Jeffery S DO Dec 24, 2016 16:02 Rogerio Chapa MD Dec 24, 2016 17:08
== END 2016-12-24 12:57 | disposition home or self-care (01) | DRG 281 ==
LOC: SED 17:41 → PCC 23:28
PROVIDERS: ADMIT Internal Medicine; ATTEND Internal Medicine
PROC: 4A023N7 Measurement of Cardiac Sampling and Pressure, Left Heart, Percutaneous Approach (ICD-10-PCS; principal; 2016-12-21)
PROC: B2111ZZ Fluoroscopy of Multiple Coronary Arteries using Low Osmolar Contrast (ICD-10-PCS; 2016-12-21)
PROC: B2181ZZ Fluoroscopy of Left Internal Mammary Bypass Graft using Low Osmolar Contrast (ICD-10-PCS; 2016-12-21)
PROC: B51D1ZA Fluoroscopy of Bilateral Lower Extremity Veins using Low Osmolar Contrast, Guidance (ICD-10-PCS; 2016-12-21)
DX: I21.4 Non-ST elevation (NSTEMI) myocardial infarction (principal); I23.7 Postinfarction angina; A04.7 Enterocolitis due to Clostridium difficile; I50.22 Chronic systolic (congestive) heart failure; I25.118 Atherosclerotic heart disease of native coronary artery with other forms of angina pectoris; E66.9 Obesity, unspecified; I12.9 Hypertensive chronic kidney disease with stage 1 through stage 4 chronic kidney disease, or unspecified chronic kidney disease; N18.3 Chronic kidney disease, stage 3 (moderate); E78.5 Hyperlipidemia, unspecified; R51 Headache; E11.65 Type 2 diabetes mellitus with hyperglycemia; Z95.5 Presence of coronary angioplasty implant and graft; Z95.1 Presence of aortocoronary bypass graft; Z68.28 Body mass index [BMI] 28.0-28.9, adult; Z79.82 Long term (current) use of aspirin; I25.2 Old myocardial infarction; F32.9 Major depressive disorder, single episode, unspecified

== ENCOUNTER 2017-02-16 22:19 | Inpatient (IN) | payer MEDICARE ==
[~2017-02-16] VITALS: Ht 185.4 cm; Wt 97.6 kg
--- NOTE | 2017-02-16 22:15 | ED.REPORT ---
HPI-Chest Pain 40 and Over Date of Service Feb 16, 2017 ED Provider: Vishal Bae MD An 81 year old male with a history of HI, pacemaker placement, CAD, CHF and hypertension is brought to the ED via EMS due to chest pain. The pain is currently a 7/10 pain located in the center of his chest and radiates into his arms with a "burning pain." This began at 21:30 this evening and was not relieved by three nitro at home. This is accompanied by shortness of breath and diaphoresis, though the pt denies nausea and vomiting. He experienced similar chest pain yesterday and paramedics were called, but the pt refused to be transported. The pt had a pacemaker placed in 11/2016 and has had four HI's since that point. He was last admitted on 02/11/2017 for an NSTEMI. Nursing Notes Stated Complaint: CHEST PAIN Nursing Notes Reviewed: Yes Allergies: Coded Allergies: Slsjerf-Qvp-Eff Reductase Inhibitor (Verified Allergy, Intermediate, MAKE HIM HURT ALL OVER, 12/17/16) bupropion (Verified Allergy, Intermediate, ANXIETY, 12/17/16) clindamycin (Verified Allergy, Mild, 12/19/16) metformin (Verified Allergy, Unknown, 12/17/16) STATES CANNOT TAKE DUE TO KIDNEY FUNCTION lactose (Verified Adverse Reaction, Intermediate, Diarrhea, 12/17/16) Scheduled Amlodipine (Amlodipine) 5 Mg Tablet 5 MG PO BID Aspirin (Aspirin) 81 Mg Tablet 81 MG PO HS Clopidogrel (Clopidogrel) 75 Mg Tablet 75 MG PO DAILY Furosemide (Lasix) 20 Mg Tablet 20 MG PO DAILY Glipizide (Glipizide) 5 Mg Tablet 5 MG PO BID Insulin Glargine (Lantus U100 Insulin Vial) 100 Unit/Ml Vial 35-55 UNIT SUBQ QAM Isosorbide MN ER (Isosorbide MN ER) 60 Mg Tab.er.24h 60 MG PO DAILY Metoprolol Tartrate (Metoprolol Tartrate) 50 Mg Tablet 50 MG PO TID Rosuvastatin Calcium (Crestor) 5 Mg Tablet 5 MG PO DAILY Scheduled PRN Nitroglycerin SL (Nitroglycerin SL) 0.4 Mg Tab.subl 0.4 MG SL PRN PRN PRN CHEST PAIN take one every 5 min for 3 doses for chest pain, call 911 if not better Pantoprazole DR (Pantoprazole DR) 40 Mg Tablet.dr 40 MG PO DAILY PRN PRN For Dyspepsia or Heartburn Quetiapine Fumarate (Quetiapine Fumarate) 25 Mg Tablet 12.5 MG PO BID PRN PRN For Agitation Take twice per day. You may also take every 4 hours as needed for agitation. oxyCODONE-Acetaminophen 5-325 mg (oxyCODONE-Acetaminophen 5-325 mg) 1 Each Tablet 1 TAB PO Q4H PRN PRN For Pain General Time Seen by MD: 22:14 Chief Complaint Chest pain Hx Obtained From: Patient, EMS Arrived By: Ambulance Sudden in Onset?: Yes Onset Occurred: 1 - 4 hours ago Symptom Duration: Since onset Recent Healthcare: Recent doctor visit, Recent hospitalization Similar Sx Previous: Yes Past Medical History Past Medical History Prostatic hyperplasia with obstruction ARF, continues to improve HTN, controlled DM, controlled depression Reports: Congestive heart failure, Coronary artery disease Past Surgical History Reports: CABG, Cholecystectomy Reports: AICD, Pacemaker insertion Family History noncontributory Smoking History Never Smoker Social History Alcohol Use: Denies alcohol use Drug Use: Denies drug use Other Social History: Good social support, , Local resident Ambulatory Status Independent Review of Systems Respiratory: Reports: Shortness of breath, Denies: Non-productive cough Cardiovascular: Reports: Chest pain GI: Denies: Abdominal pain, Nausea, Vomiting Musculoskeletal: Reports: Extremity pain, Denies: Back pain, Neck pain Skin: Denies Rash Complete sys rev & neg: except as marked. Physical Exam Initial Vital Signs Vital Signs (First) Date Time Temp Pulse Resp B/P Pulse Ox O2 Delivery O2 Flow Rate FiO2 02/16/17 22:22 37.1 69 19 115/59 93 Room Air Initial VS: Reviewed General/Constitutional: Awake, Alert hard of hearing Respiratory / Chest: Atraumatic, Breath sounds NL, Breath sounds = bilat oxygen saturation at 86-87% with good pleth Cardiovascular: Heart rate NL, Heart sounds NL irregularly irregular Abdomen: Atraumatic, Soft, Non-tender Neck: Atraumatic, Supple, Full range of motion Back: Atraumatic, Full range of motion Lower Extremity / Pelvis / MS: Atraumatic, Full range of motion Skin: Atraumatic, Color NL, No rash, Warm, Dry Neurologic: Oriented X3, Speech NL, No motor deficits, No sensory deficits Psychiatric: Affect NL, Mood NL Head / Eyes: Atraumatic, Normocephalic, PERRL, EOMI ENT: Atraumatic, Airway patent, Mucous membranes moist Upper Extremity / MS: Atraumatic, Full range of motion Interpretation & Diagnostics Lab Results Interpretation Result Diagram: 02/16/17222902/16/172229 Test 02/16/17 22:30 White Blood Count 8.2th/mm3 (3.8-10.1) Red Blood Count 3.71mil/mm3 (4.40-5.80) Hemoglobin 11.3g/dL (13.8-17.2) Hematocrit 33.5% (41.0-50.0) Mean Corpuscular Volume 90.3fL (81-100) Mean Corpuscular Hemoglobin 30.5pg (27.0-35.0) Mean Corpuscular Hemoglobin Concent 33.7% (32.0-37.0) Red Cell Distribution Width 14.1% (12.3-15.4) Platelet Count 208bil/L (150-400) Neutrophils (%) (Auto) 62.3% (40-74) Lymphocytes (%) (Auto) 22.3% (14-46) Monocytes (%) (Auto) 9.3% (4-12) Eosinophils (%) (Auto) 5.4% (0-5) Basophils (%) (Auto) 0.6% (0-3) Prothrombin Time 10.6sec (8.1-12.5) Prothromb Time International Ratio 0.99ratio Sodium Level 138mEq/L (134-144) Potassium Level 4.5mEq/L (3.5-5.2) Chloride Level 102mEq/L (97-108) Carbon Dioxide Level 20mmol/L (18-29) Blood Urea Nitrogen 35mg/dL (8-27) Creatinine 2.04mg/dL (0.76-1.27) Estimat Glomerular Filtration Rate 33mL/min (>59) Glucose Level 188mg/dL (60-99) Calcium Level 8.9mg/dL (8.5-10.1) Magnesium Level 2.0mg/dL (1.6-2.6) Total Bilirubin 0.5mg/dL (0.0-1.2) Aspartate Amino Transf (AST/SGOT) 21U/L (0-50) Alanine Aminotransferase (ALT/SGPT) 19U/L (0-44) Alkaline Phosphatase 53U/L (25-160) Troponin T 0.520ug/L (0.0-0.011) Pro-B-Type Natriuretic Peptide 3476pg/mL (0-486) Total Protein 7.0g/dL (6.4-8.4) Albumin 3.7g/dL (3.4-5.0) Lab Results Interpretation: Troponin 0.520 ECG Interpretation ECG Interpretation: normal sinus rhythm with a rate of 61 atrial premature complex LBBB Time: 22:23 Interpreted by: ED physician X-Ray Chest Interpretation Chest Xray Interpretation: atelectasis at left base Interpretation / Wet Read by: Justin read ED physician Re-Eval/Medical Decision Med Decision/Clinical Course 7-year-old with end-stage coronary disease presents with chest pain just three days after discharge from an N STEMI. He was recently and no disease that was amenable to percutaneous intervention was found. He has disease in fact but is not a surgical candidate and not a stent candidate. Consultation with palliative care has begun and is due for an office visit with Dr. Marucm on Wednesday. Unfortunately, today, he has a marked rise in his troponin, and again is experiencing extension of his N STEMI most likely. He is admitted for symptom control and medication titration. There is some question as to whether he is taking his meds as directed, as he has a history of skipping them if he is not feeling well or if he is frustrated. Family understands there is relatively little late to be done by way of intervention, but pain control and comfort is the immediate goal. He is DO NOT RESUSCITATE and this was confirmed. Source of Hx: Old records Time of Eval: 23:00 Patient Status: Condition improved Re-Evaluation/Progress Note: Pt rechecked, who is stable but still experiencing pain. Pt's is present in the room. Pt's condition is discussed with . Time of Eval: 23:55 Patient Status: Condition improved Re-Evaluation/Progress Note: Pt rechecked, whose condition has improved somewhat. The diagnosis and plan for admission are discussed. The pt understands and agrees with the plan. All questions are addressed at this time. Consultation : Referral / Consult Name: Sullenberger,Vandana E DO Consulted With: Hospitalist Call Returned at: 00:26 Tear Down Matcher: Agrees with eval, Agrees with plan, Accepts admit Note: Spoke with Dr. Nava, hospitalist, regarding pt's case. Dr. Nava agrees with the evaluation and agrees to admit the pt. Counseled Regarding: Diagnosis, Lab results, Need for admission Discharge & Departure Primary Impression: NSTEMI (non-ST elevated myocardial infarction) Additional Impression: Chest pain Chest pain type: chest pain due to myocardial ischemia Ischemic chest pain type: unstable angina pectoris Qualified Code: I20.0 - Unstable angina Disposition: ADMITTED TO HOSPITAL Discharge Condition All VS Reviewed: Yes Condition: Stable Referrals: Tammy Briggs MD (PCP) Scribe Attestation Portions of this note were transcribed by Claudette Vu. I, Dr. Bae personally performed the history, physical exam and medical decision-making; I reviewed and confirmed the accuracy of the information in the transcribed note. copies to: Tammy Briggs MD, Christopher W MD Feb 16, 2017 22:15 CLAUDETTE VU Feb 16, 2017 22:29
[~2017-02-16 22:19] MED LIST changes: -ATEN25TA PO; +FURO-129 PO; -METO-272 PO; -METO200T32 PO; +OXYC1TAB24 PO; +QUET25TA73 PO; +ROSU5TAB PO
[2017-02-16 22:22] VITALS: BP 115/59; PULSE 69; RESP 19; O2SAT 93
[2017-02-16] MEDS ORDERED: Ondansetron 2 mg/mL 2 mL Inj IVPUSH ONE (22:30)
[2017-02-16 22:48] LABS: BASOPHILS % (AUTO) 0.6 % (0-3); EOSINOPHILS % (AUTO) 5.4 % (0-5); MONOCYTES % (AUTO) 9.3 % (4-12); Mean Corpuscular Hemoglobin 30.5 pg (27.0-35.0); Mean Corpuscular Volume 90.3 fL (81-100); NEUTROPHILS % (AUTO) 62.3 % (40-74); Platelet Count 208 bil/L (150-400)
[2017-02-16 22:59] LABS: INR 0.99 ratio
[2017-02-16 23:24] LABS: TROPONIN T 0.52 ug/L (0.0-0.011)
[2017-02-17] VITALS (9 sets, daily range): BP systolic 100–118; BP diastolic 57–70; PULSE 49–81; RESP 14–19; O2SAT 90–96
[2017-02-17] MEDS ORDERED: Ketorolac 15 mg/mL Inj IVPUSH ONE (01:20)
[2017-02-17] MEDS ORDERED: Polyethylene Glycol (PEG) 17 Gm Powder PO PRN (01:25)
[2017-02-17] MEDS ORDERED: Ondansetron 2 mg/mL 2 mL Inj IVPUSH PRN (01:25)
[2017-02-17] MEDS ORDERED: Alum-Mag Hydrox-Simeth 30 mL Suspension PO PRN (01:25)
[2017-02-17] MEDS ORDERED: oxyCODONE-Acetamin 5-325 mg Tablet PO PRN (02:35)
--- NOTE | 2017-02-17 02:39 | PCM.HPMED ---
Subjective Date of Service Feb 17, 2017 Primary Provider: Admitting Physician: Vandana Nava DO Primary Care Physician: Tammy Briggs MD Attending Physician: Vandana Nava DO Admit Status: From the Emergency Department, Remote Telemetry Chief Complaint: Chest pain History of Present Illness: Mr. Montoya is an 81-year-old gentleman well known to this facility with multiple readmissions for recurrent chest pain secondary to severe coronary artery disease status post CABG with multiple occlusions within grafts and rampart vessels whom is not a surgical candidate, in addition to ischemic cardiomyopathy with EF 35-40, presented to the emergency department with onset of chest pain with radiation to both of his arms following minor injury in his home. Initial evaluation revealed an elevated troponin at 0.520. Chest pain resolved at time of admission, and at time of admission, patient refused heparinization and laboratory draws. He was admitted for evaluation and treatment of end-stage cardiac disease, and palliative discussion. - Hospital day 1 Chest pain was initially described a presentation rated as a 7 out of 10, located in the center of stress, with radiation into both of his arms, described as a "burning." Pain initiated following a dinner with family, and while the patient was mobilizing with his home, he reports that he stubbed his toe, and then developed symptoms of chest pain. He reports he took 3 nitroglycerin at home, which would did not relieve his pain. He also noted some mild shortness of breath and diaphoresis. At time of admission, patient stated that he chest pain had resolved, and was no longer experiencing diaphoresis or shortness of breath. is also present during time of admission, and the pain concern expressed by both patient and , includes the long-term outcomes of the patient's condition. Was explained that initial interventions or any patient with chest pain, presenting with elevated troponin , involves the initiation of anticoagulation. The patient, at the time of admission, declines any further heparin infusions and/or laboratory draws for monitoring of cardiac enzymes and blood counts. Of note, the patient and had been working closely with Dr. Marcum of palliative care, and would like to hold all further interventions until another discussion with palliative care is completed. In the ED, T 37.1, pulse 69, respiratory rate 19, blood pressure 115/59, 93% on room air; initial labs revealed white count 8.2 with no shift, hemoglobin 11.3, platelets 208; fluctuates her within range, elevated creatinine at 2.04 ( baseline approximately 1.5); troponin 0.520; EKG was consistent with previous recordings showing normal sinus rhythm with rate approximately 61 with PACs and left bundle branch block. Patient was transported to medical floor in stable condition, and patient has decided to forgo heparinization and routine labs at this time. Review of Systems: Complete review of systems obtained, pertinent positives and negatives as noted in history of present illness Allergies Coded Allergies: Etinmrj-Isl-Zsu Reductase Inhibitor (Verified Allergy, Intermediate, MAKE HIM HURT ALL OVER, 12/17/16) bupropion (Verified Allergy, Intermediate, ANXIETY, 12/17/16) clindamycin (Verified Allergy, Mild, 12/19/16) metformin (Verified Allergy, Unknown, 12/17/16) STATES CANNOT TAKE DUE TO KIDNEY FUNCTION lactose (Verified Adverse Reaction, Intermediate, Diarrhea, 12/17/16) Home Medications Obtained from [employer] dated 02/16/2017 [place]. [id number] 1935 02/16/2017 02:00 PM 06/29 Medications (Added or Continued this visit) Start Date Medication Directions Stop Date 07/02/2015 [facility] Syringes 1/2 mL 31 x 5/16" For dosing lantus once daily 12/25/2016 amlodipine 5 mg tablet take 1 tablet by oral route every day 06/24/2016 aspirin 81 mg tablet,delayed release take 1 tablet by oral route every day 07/15/2015 clobetasol 0.05 % topical cream apply by topical route 2 times every day a thin layer to the affected area(s) for 2 weeks then only 2-3 times a week as needed 05/09/2015 clobetasol 0.05 % topical solution apply by topical route 2 times every day to the affected areas for 3 weeks then as needed 2-3 times a week 11/26/2016 clopidogrel 75 mg tablet take 1 tablet by oral route every day 12/25/2016 furosemide 20 mg tablet take 1 tablet by oral route every day 02/16/2017 glipizide 5 mg tablet take 1 tablet by oral route 2 times every day before meals 11/26/2016 isosorbide mononitrate ER 60 mg tablet,extended release 24 hr TAKE ONE TABLET BY MOUTH EVERY DAY 06/24/2016 Lantus 100 unit/mL subcutaneous solution INJECT SUBCUTANEOUSLY 35 TO 55 UNITS ONCE DAILY IN THE MORNING 02/16/2017 metoprolol tartrate 50 mg tablet take 1 tablet by oral route 2 times every day with meals for heart. 02/16/2017 nitroglycerin 0.[address] 1 tablet by sublingual route at the 1st sign of attack; may repeat every 5 min until relief; if pain persists after 3 tablets in 15 min, prompt medical attention is recommended 07/18/2014 [employer] Ultra System Kit Use for diabetic control. 07/02/2015 [employer] Ultra Test strips test blood sugar 1 by machine 3 times daily before breakfast, lunch and dinner. 01/12/2017 pantoprazole 40 mg tablet,delayed release take 1 tablet by oral route every day 06/16/2017 01/06/2017 rosuvastatin 5 mg tablet take 1 tablet by oral route every day Patient states allergy to statins, but statin appears on above list. We will not continue this medication during this hospitalization PMH Cardiac arrest status post AICD placement C. difficile colitis Coronary artery disease status post CABG 5 vessels and chronic occlusions Type II diabetes GERD w/ PUD Hyperlipidemia History of aspiration pneumonia Hypertension Osteopenia Chronic kidney disease Catheterization results 12/21/2016: Normal left main coronary artery, left anterior descending subtotally occluded in proximal portion and becomes totally occluded after the takeoff of the small second septal branch, the circumflex artery has minor irregularity with 20% stenosis in proximal portion, the obtuse marginal branch is occluded, the right coronary artery is occluded at its origin , the left internal mammary artery graft to the left anterior descending artery is an excellent conduit with excellent distal anastomosis. 2 saphenous vein grafts are occluded, saphenous vein graft to the right posterior descending branch has 40% stenosis in the proximal portion, there is a 70% stenosis in the rampart right coronary artery right at the bifurcation of the right posterior descending and posterolateral branch. The right posterior descending branch has 80% stenosis at its origin. The right posterolateral branch has 50% stenosis at its origin, this lesion is not amendable to percutaneous coronary intervention due to the acute angulation of the graft anastomosis; the saphenous vein graft to the diagonal branch remains patent with excellent distal anastomosis and distal runoff, the previous stent site remains patent. Surgical History CABG, year 1999 Dual-chamber ICD insertion in year 1999 Cataract Tonsillectomy Prostatectomy Rotator cuff repair Breast reduction for gynecomastia Cholecystectomy in 2006 Carpal tunnel release in 2006 Family History 5 living children Father at age 58 secondary to coronary artery disease with carotid artery blockages Mother lived to 95 years of age Siblings, one sister at age 71 secondary to an unspecified type of cancer, suspected to be breast, another sister suffers from depression Other family history includes diabetes Social History Hx Alcohol Use: Yes (occasional) Hx Substance Use: No Hx Tobacco Use: Yes Smoking Status: Former Smoker Living Arrangement: with Family (, local) Exam Vital Signs Vital Sign - Last Date Time Temp Pulse Resp B/P Pulse Ox O2 Delivery O2 Flow Rate FiO2 02/16/17 22:22 37.1 69 19 115/59 93 Room Air Exam General: Alert and oriented 3; pleasant gentleman resting supine in bed in no acute distress at time of examination, but was tearful HEENT: Atraumatic, normocephalic, sclera anicteric, membranes moist Neck: Full range of motion without pain Cardiac: Regular rate and rhythm at time of examination without any appreciable murmurs Respiratory: Equal and adequate airflow all cameron anteriorly without any wheeze or rhonchi; no use of accessory muscles Chest: Atraumatic without any reproducible pain with palpation Abdomen: Soft, nontender, nondistended Extremities: No edema appreciated Skin: Warm and dry Neuro: Cranial nerves II-XII grossly intact, speech without slur, facial expressions equal and symmetric Psych: Appropriate mood, affect, and responses to questions; moderate insight and judgment Additional: Patient became tearful, as it appears that he is finally grasping the realization of his situation and what could be a likely poor outcome Lab and Diagnostics Result Diagram: 02/16/17222902/16/172229 Assessment & Plan Mr. Montoya is an 81-year-old gentleman well known to this facility with multiple readmissions for recurrent chest pain secondary to severe coronary artery disease status post CABG with multiple occlusions within grafts and rampart vessels whom is not a surgical candidate, in addition to ischemic cardiomyopathy with EF 35-40, presented to the emergency department with onset of chest pain with radiation to both of his arms following minor injury in his home. Initial evaluation revealed an elevated troponin at 0.520. Chest pain resolved at time of admission, and at time of admission, patient refused heparinization and laboratory draws. He was admitted for evaluation and treatment of end-stage cardiac disease, and palliative discussion. - Hospital day 1 NSTEMI, acute, present on admission, monitor - On admit: Troponin 0.520 - Patient respectfully declined heparinization - Due to extensive cardiac history and minimal interventions to provide complete relief, patient and family would like to speak with palliative care to discuss other options - At this time, we will not pursue laboratory draws, heparin drip, or repeat EKGs - Continue oxygen, morphine, nitroglycerin, aspirin - EKGs available as needed for chest pain - Home meds: Amlodipine 5 mg daily, aspirin 81 mg daily, clopidogrel 75 mg daily , isosorbide mononitrate ER 60 mg daily, metoprolol 50 mg thrice daily Significant coronary artery disease status post CABG with multivessel graft placement with multiple occlusions, chronic, presumed stable - Patient has had multiple readmissions for recurrent chest pain - Patient last cardiology 02/11/2017 here at [facility] - Recommendations from cardiology at that time included continuation of statin, focus on symptom management - Patient reports significant adverse effects of statin therapy, this will not be continued at this time - Home medications: Aspirin daily, amlodipine 5 mg daily, clopidogrel 75 mg daily, furosemide 20 mg daily, isosorbide mononitrate ER 60 mg daily, Toprol tartrate 50mg thrice daily - We will continue all home medications at this time and patient and family request; no changes will be made - Med list does report Crestor 5 mg daily, but patient reports adverse reaction to statin, and we will hold this medication during this hospitalization Goals of care, ongoing - Patient and family report excellent relationship with Dr. Marcum - Initial discussions of pursuing alternatives to medical management have been initiated - Patient would like to speak with Dr. Marcum, or another member of the palliative care team, to determine the next best step in his care - Again, at this time, patient is a DNR/DNI, and is refusing heparinization and laboratory draws - We can certainly change any orders to reflect his wishes after any further discussion - Palliative care note dated 02/15/2017: Plan for hospice discussion, consideration for disabling his defibrillator, stop Seroquel, symptom management with oxycodone tablets 5 mg every 4 hours as needed, with continuation of nighttime dose of morphine sulfate immediate release during the interim (Lm was made that oxycodone was selected secondary to patient's renal insufficiency) - Copy of POLST was provided by family: DNR/DNI selected - Patient comfort is goal at this time until further discussions can be completed with palliative care, to determine the next steps in patient care Other chronic conditions; Diabetes mellitus, presumed stable - Resume home meds: Lantus 33-55U qam, Glipizide 10 mg twice daily - We will anticipate these medications be changed as goals of care also change Hypertension, chronic, presumed stable - Resume multiple cardiac medications as noted above Chronic systolic congestive heart failure, presumed stable - Resume multiple cardiac medications as noted above Acute on chronic kidney disease, stage III, presumed stable - On admit: Creatinine 2.04; creatinine at previous discharge 02/11/2017 was 1.97 - Previous values fluctuate around 1.5, which is likely closer to his previous baseline - Decreasing cardiac function is likely contributing to the rising creatinine - We will avoid nephrotoxic medications Hyperlipidemia, chronic, presumed stable - Med list shows Crestor 5 mg daily, but patient states adverse reactions to all statins - Hold Crestor at this time PRN fever, bowel, nausea, pain DVT: None at this time; SCDs ordered Diet: General GI: Home PPI IVF: None at this time Code: FULL CODE Patient status: Patient is admitted under inpatient status with expected length of stay greater than 2 midnights due to severity of presenting symptoms, risk of adverse event, and complexity of treatment plan. Pain Evaluation: Adequate Pain Control GI Prophylaxis: Proton Pump Inhibitor VTE Prophylaxis: SCDs Resuscitation Status: DNR/DNI:Do Not Resuscitate/Intubate Attending Statement The patient was seen and examined together with house staff on 02/17/2017 and I agree with the history, exam and plan as outlined in the note above. copies to: Tammy Briggs MD; Conchis Marcum MD, Lindsay R DO Feb 17, 2017 01:40 Vandana Nava DO Feb 17, 2017 04:11
--- NOTE | 2017-02-17 03:30 | NUR ---
ADMIT: pt A&OX3, forgetful. pt is sleepy. med rec complete from copy of home medications. pt denies CP at this time. pt on 2LO2 sat mid 90's. will continue to monitor pt.
[2017-02-17] MEDS ORDERED: Isosorbide Mononitrate 60 mg ER24 Tablet PO SCH (08:30)
--- NOTE | 2017-02-17 10:17 | NUR ---
Social Work-initial assessment: Data:See initial assessment. Pt is a 81 y/o male who was admitted on 02/17/17 for non stemi per H&P. Pt's insurance is [employer] and PCP is Tammy Briggs MD. EMR Reviewed. Pt's readmission score is 6-high risk. Pt just discharged home. SW met with pt at bedside, SW role explained. Pt is alert and oriented x3. Pt resides at home with his where he remains independent with basic ADLs. Pt does not drive and uses a fww at baseline. Pt has no HH or SNF history. Pt has no residential care insurance or VA benefits. SW discussed DPOA/ advanced directive, pt confirms this has been completed, SW encouraged a copy to be brought in. Per MD, pt is comfort care and palliative care consult has been placed. SW to follow up post palliative consult for any needs. No orders from MD at this time. SW provided discharge planning checklist and encouraged pt to call with any questions,phone number provided on white board in room. SW will continue to follow. Assessment:Pt who is comfort care. Plan:Anticipate home when medically stable via POV. Palliative care to meet with family and discuss goals of care. SW will continue to follow. ENRIQUE Benavidez Addendum: 02/17/17 at 1029 by ORALIA LEONARD SS Amended: Links added. Addendum: 02/17/17 at 1721 by ORALIA LEONARD SS SW updated by Palliative Care PATIENT TRANSPORTATION DRIVER that pt and family to have Hospice information visit tomorrow at 0930. SW to follow after Hospice information. ENRIQUE Benavidez
--- NOTE | 2017-02-17 11:30 | NUR ---
Palliative Care Palliative Care received order from Dr Yang 02/17/17 to assist with goals of care. Patient admitted 02/17/17. Patient is well known to the inpatient/outpatient Palliative Care Team. Loni () [phone], Palliative Care to follow. Meggan Carlson
[2017-02-17] MEDS ORDERED: fentaNYL-PF 50 mCg/mL 2 mL Inj IVPUSH PRN (12:55)
--- NOTE | 2017-02-17 14:50 | NUR ---
Palliative care note D/A; Palliative care referral received to work with this pt. Please note that he had an Outpatient Palliative Care appt with Dr. Marcum and this worker for 02/25/17 at 1:00. Pt however has been admitted and will see PC in acute care. Please note that Dr. Marcum had been planning on discussing hospice with pt and spouse at that time. They have agreed to a hospice info visit. Dr. Bryant has kindly written for hospice order as well. Met with pt and his spouse as well as an additional family member who was visiting. Presented pt and spouse with Hospice Services informational sheet. They live in [facility] and also know people who work or who have had PNW. They chose [facility]. Phone call to Hanna at [facility] and leave message asking for informational visit time. Aware that today is full for visits. Spouse is available on 02/18/17. Her only request is to not meet between [phone]. Msg left for sridhar Morris. P: Palliative care to follow. Zulema LUNSFORD [facility] Addendum: 02/17/17 at 1518 by ENEDINA YAO PC note amendment Per Dr. Bryant, pt ICD device has been turned off. Zulema LUNSFORD [facility] Addendum: 02/17/17 at 1557 by ENEDINA YAO PC note amendment Phone call from Hanna at [facility]. She notes that Carli can provide visit on 02/18/17 at 0930. Met with spouse to explain and also put on pt white board. Met with Enedina NUNEZ, sridhar as well. Dr. Bryant aware. Zulema Yao [facility], [facility]
--- NOTE | 2017-02-17 14:52 | PCM.CONPAL ---
Date of Service Feb 17, 2017 Date of Hospital Admission: Feb 17, 2017 at 00:59 Date of Palliative Consult: Feb 17, 2017 Requesting Provider: Juliana Yang DO Reason Palliative Care Consult: Pain, Hospice Referral & Discussion Hospital Unit @time of consult: Medical/Pediatric Care Palliative Care Recommendation 81-year-old male with complex history of ischemic heart disease, with multiple recent admissions for recurrent chest pain and dyspnea, not a candidate for further mechanical intervention, considering transition to hospice. Palliative medicine consulted to assist with symptom management and determination of goals of care Summary of palliative recommendations: -Symptom management (Pain/other)- oxycodone 5-10 mg PO Q 3 hr prn. Per recommendation of Dr. Beard of hospice, hydromorphone solution, 1 mg per mL, 0.25 mg PO/SL Q 1 hr prn dyspnea/discomfort. If hydromorphone insufficient, fentanyl 25-50 mg IV Q 1 hr prn dyspnea/discomfort. (Note that above recommendations are made in the setting of his chronic renal insufficiency and hospital shortage of IV morphine) Continue his metoprolol, amlodipine and aspirin. Increase isosorbide mononitrate to 90 mg daily with further titration as tolerated. Discussed ICD deactivation with Dr. Mccallum of cardiology who will make arrangements. Patient requested liberalization of diet; advance to general diet with no restrictions -DPOA/Advanced Directives/POLST- per POLST of 02/11 he is DO NOT RESUSCITATE/DO NOT INTUBATE/limited interventions/no artificial nutrition. Will plan on updating as he transitions to hospice. -Family/emotional support- palliative will continue to follow support Additional Medical Diagnoses with primary management by Hospitalist team include : NSTEMI, acute, present on admission, monitor Significant coronary artery disease status post CABG with multivessel graft placement with multiple occlusions, chronic, presumed stable Goals of care, ongoing - Patient and family report excellent relationship with Dr. Marcum - Initial discussions of pursuing alternatives to medical management have been initiated - Patient would like to speak with Dr. Marcum, or another member of the palliative care team, to determine the next best step in his care - Again, at this time, patient is a DNR/DNI, and is refusing heparinization and laboratory draws - We can certainly change any orders to reflect his wishes after any further discussion - Palliative care note dated 02/15/2017: Plan for hospice discussion, consideration for disabling his defibrillator, stop Seroquel, symptom management with oxycodone tablets 5 mg every 4 hours as needed, with continuation of nighttime dose of morphine sulfate immediate release during the interim (Lm was made that oxycodone was selected secondary to patient's renal insufficiency) - Copy of POLST was provided by family: DNR/DNI selected - Patient comfort is goal at this time until further discussions can be completed with palliative care, to determine the next steps in patient care Diabetes mellitus, presumed stable Hypertension, chronic, presumed stable Chronic systolic congestive heart failure, presumed stable Acute on chronic kidney disease, stage III, presumed stable Hyperlipidemia, chronic, presumed stable Problems: End of Life Preferences DO NOT RESUSCITATE/DO NOT INTUBATE/transitioning to hospice Disposition Probably home with hospice Resuscitation Status Resuscitation Status: DNR/DNI:Do Not Resuscitate/Intubate POLST Updates/Changes Previous POLST?: Yes POLST Last Review Date: Feb 17, 2017 Artificially Admin Nutrition: No Artifical Nutrition by Tube POLST Discussed with: Patient POLST Review Outcome: No Change . Pain: Mild Symptom management: Anxiety, Pain Pt History History of Present Illness Per admission H&P: Mr. Montoya is an 81-year-old gentleman well known to this facility with multiple readmissions for recurrent chest pain secondary to severe coronary artery disease status post CABG with multiple occlusions within grafts and campo vessels whom is not a surgical candidate, in addition to ischemic cardiomyopathy with EF 35-40, presented to the emergency department with onset of chest pain with radiation to both of his arms following minor injury in his home. Initial evaluation revealed an elevated troponin at 0.520. Chest pain resolved at time of admission, and at time of admission, patient refused heparinization and laboratory draws. He was admitted for evaluation and treatment of end-stage cardiac disease, and palliative discussion Of note, the patient and had been working closely with Dr. Marcum of palliative care, and would like to hold all further interventions until another discussion with palliative care is completed. Patient was transported to medical floor in stable condition, and patient has decided to forgo heparinization and routine labs at this time. Palliative medicine consulted to assist with symptom management and definition of goals of care, with probable transition to hospice Prior to visiting, high reviewed his records in the EMR in detail, spoke with his nurse, his medical team and with Dr. Beard of hospice. I also spoke with Drs. Tristan and Alessio of cardiology When I arrived, patient was lying in bed with his at bedside. We spoke at length, reviewing his recent hospitalizations, his recurrent symptoms, his discussions with cardiologists and his previous consultation with Dr. Marcum of palliative medicine. Reviewed his understanding of his cardiac situation and its intractable nature. Patient has been advised now by multiple cardiologists that there are no further options for mechanical intervention. He and his have considered and discussed hospice care and at this time wish to proceed with information visit and probable transition to hospice. He continues to have frequent episodes of upper retrosternal chest discomfort with sense of dyspnea and air hunger. This is relieved only briefly with morphine. There is a hospital shortage of morphine and it is relatively contraindicated in the setting of his chronic renal insufficiency. We discussed his pacemaker/ICD and they were relieved to know that Dr. Mccallum will be making arrangements for the ICD component to be shut off prior to his leaving the hospital. His is tearful. She says that the patient's illness has changed him and that he has been verbally lashing out at her when he feels bad and is frustrated. She does not feel that she can care for him at home alone and has been talking with their children - while they would like to help none of them are immediately available for continuous care at home. Patient and his do not want to consider sending him to an SNF, and even if they sign on with hospice they may require additional assistance at home. Past Medical History Significant PMH Noted: Cardiac arrest status post AICD placement C. 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 ; they have 11 children between them from prior marriages Family Members Issues: As above Social Support: Good support from friends, some of whom have offered to provide daily support and assistance at home Living Situation: [place] [facility] Palliative Performance Scale PPS Patient Status: Baseline PPS Ambulation: Mainly Sit/Lie PPS Activity: Unable to do any activity PPS Self-Care: Occasional assistance necessary PPS Intake: Normal or reduced PPS Conscious Level: Full or confusion Performance Scale: 30% Allergy Allergies Reviewed: Yes Medications Current Medications: Current Medications Morphine Sulfate UP TO 10 mg IV in a 4 h... Q15MIN PRN IVPUSH Last administered on 02/17/17 00:05; Admin Dose 4 MG; Start 02/16/17 at 22:30; Stop 02/17/17 at 06:00; Status DC Lorazepam 0.5 mg ONCE PRN IVPUSH Last administered on 02/16/17 22:56; Admin Dose 0.5 MG; Start 02/16/17 at 22:30; Stop 02/16/17 at 22:56; Status DC Al Hydrox/Mg Hydrox/Simethicone 30 ml Q6H PRN PO; Start 02/17/17 at 01:25 Ondansetron HCl 4 to 8 mg Q4H PRN IVPUSH; Start 02/17/17 at 01:25 Senna 17.2 mg BID PRN PO; Start 02/17/17 at 01:25 Polyethylene Glycol 17 gm DAILY PRN PO; Start 02/17/17 at 01:25 Acetaminophen 975 mg Q6H PRN PO; Start 02/17/17 at 01:25 Amlodipine Besylate 5 mg BID PO Last administered on 02/17/17 09:19; Admin Dose 5 MG; Start 02/17/17 at 08:30 Aspirin 81 mg HS PO; Start 02/17/17 at 21:00 Clopidogrel Bisulfate 75 mg DAILY PO Last administered on 02/17/17 09:19; Admin Dose 75 MG; Start 02/17/17 at 08:30 Furosemide 20 mg DAILY PO Last administered on 02/17/17 12:38; Admin Dose 20 MG ; Start 02/17/17 at 08:30 Glipizide 5 mg BID PO Last administered on 02/17/17 09:19; Admin Dose 5 MG; Start 02/17/17 at 08:30 Isosorbide Mononitrate 60 mg DAILY PO Last administered on 02/17/17 09:19; Admin Dose 60 MG; Start 02/17/17 at 08:30; Stop 02/17/17 at 12:38; Status DC Metoprolol Tartrate 50 mg TID PO Last administered on 02/17/17 09:19; Admin Dose 50 MG; Start 02/17/17 at 08:30 Nitroglycerin 0.4 mg PRN PRN SL; Start 02/17/17 at 02:35 Oxycodone/ Acetaminophen 1 tab Q4H PRN PO; Start 02/17/17 at 02:35; Stop at 12:38; Status DC Pantoprazole 40 mg DAILY PRN PO; Start 02/17/17 at 02:35 Morphine Sulfate 1-2 mg Q15M PRN IVPUSH Last administered on 02/17/17t 10:23; Admin Dose 2 MG; Start 02/17/17 at 02:55; Stop 02/17/17 at 11:24; Status DC Morphine Sulfate 15 mg BID PO; Start 02/17/17 at 20:30; Stop 02/17/17 at 20:30; Status DC Morphine Sulfate 15 mg Q4H PRN PO; Start 02/17/17 at 11:25; Stop 02/17/17 at 12 :38; Status DC Isosorbide Mononitrate 90 mg DAILY PO; Start 02/18/17 at 08:30 Morphine Sulfate 2-4 mg IV Q 1hr prn Q1H PRN IVPUSH; Start 02/17/17 at 12:30; Stop 02/17/17 at 12:55; Status DC Oxycodone HCl 5-10 mg PO Q3 hr prn Q3H PRN PO; Start 02/17/17 at 12:30 Fentanyl Citrate 25-50 mcg IVP Q1 hr prn dyspn... Q1H PRN IVPUSH; Start at 12:55 Hydromorphone HCl 0.25 mg Q1H PRN PO; Start 02/17/17 at 14:35 Scheduled Amlodipine (Amlodipine) 5 Mg Tablet 5 MG PO BID Aspirin (Aspirin) 81 Mg Tablet 81 MG PO HS Clopidogrel (Clopidogrel) 75 Mg Tablet 75 MG PO DAILY Furosemide (Lasix) 20 Mg Tablet 20 MG PO DAILY Glipizide (Glipizide) 5 Mg Tablet 5 MG PO BID Insulin Glargine (Lantus U100 Insulin Vial) 100 Unit/Ml Vial 35-55 UNIT SUBQ QAM Isosorbide MN ER (Isosorbide MN ER) 60 Mg Tab.er.24h 60 MG PO DAILY Metoprolol Tartrate (Metoprolol Tartrate) 50 Mg Tablet 50 MG PO TID Rosuvastatin Calcium (Crestor) 5 Mg Tablet 5 MG PO DAILY Scheduled PRN Nitroglycerin SL (Nitroglycerin SL) 0.4 Mg Tab.subl 0.4 MG SL PRN PRN PRN CHEST PAIN take one every 5 min for 3 doses for chest pain, call 911 if not better Pantoprazole DR (Pantoprazole DR) 40 Mg Tablet.dr 40 MG PO DAILY PRN PRN For Dyspepsia or Heartburn oxyCODONE-Acetaminophen 5-325 mg (oxyCODONE-Acetaminophen 5-325 mg) 1 Each Tablet 1 TAB PO Q4H PRN PRN For Pain Objective Findings Exam Vital Sign - Last Date Time Temp Pulse Resp B/P Pulse Ox O2 Delivery O2 Flow Rate FiO2 02/17/17 13:56 36.5 66 16 109/57 95 Nasal Cannula 3.00 Intake and Output 02/16/17 02/16/17 02/17/17 Cumulative From/Thru 15:00 23:00 07:00 02/16/17 22:22 - 02/17/17 06:21 Intake Total 50 ml 50 ml Output Total 0 ml 0 ml Balance 50 ml 50 ml Intake Oral 50 ml 50 ml Output Urine Total 0 ml 0 ml Objective General: Alert and oriented 3 HEENT: Atraumatic, normocephalic, sclera anicteric, membranes moist Cardiac: Regular, no murmurs Respiratory: Clear anterolaterally Chest: Atraumatic without any reproducible pain with palpation Abdomen: Soft, nontender, nondistended, obese Extremities: No pitting edema appreciated Skin: Warm and dry Lab/Diagnostics Lab and Imaging results reviewed in detail in EMR. Time spent Total time 65 minutes; >50% face to face with patient and family, providing counselling regarding plans and recommendations, and in care coordination with his medical teams. Of the above total time, 30 minutes counseling for advanced care planning with the patient and his spouse Rios Bryant MD Feb 17, 2017 14:52
--- NOTE | 2017-02-17 16:54 | DRSVH ---
PROCEDURE: X-RAY CHEST ONE VIEW, PORTABLE ([id number]) INDICATIONS: chest pain TECHNIQUE: One view of the chest was acquired. COMPARISON: [facility], CR, XR CHEST 1VW (PORTABLE), 02/11/2017, 1:12. FINDINGS: Surgical changes and devices: Stable position left chest AICD. Prior CABG. Lungs and pleura: No pleural effusions or pneumothorax. Lungs are clear. Mediastinum: Mediastinal contours appear normal. Heart size is normal. Bones and chest wall: No suspicious bony lesions. Overlying soft tissues appear unremarkable. IMPRESSION: No acute cardiopulmonary disease. Dictated by: Irving ALVAREZ Interpreted: Venus Pond MD on 02/17/2017 at 8:39 Approved by: Wagner Salazar M.D. on 02/17/2017 at 16:52
--- NOTE | 2017-02-17 18:01 | NUR ---
Chest pain. Pt. had considerable chest pain this morning, treated with IV morphine. Spoke with MD about pain management, and medications were changed by palliative. I gave PO morphine 15 mg at 1238 which really helped to get patients chest pain under control. He has remained comfortable this afternoon, with a PRN oxycodone dose given at 1720 for 4/10 chest pain. Patient is looking much better than he did this morning. He is more alert, talkative and interactive.
--- NOTE | 2017-02-17 18:14 | NUR ---
Output/Refused bladder scan Pt. had 300 cc urine out this shift. He is refusing to try to use the urinal, and he is also refusing a bladder scan despite education. He says he feels "fine" and does not need to urinate. Denies bladder distension or discomfort. MD notified. Will continue to monitor.
[2017-02-17] MEDS ORDERED: Morphine ER 15 mg (MS Contin) Tablet PO SCH (20:30)
[2017-02-18 05:00] VITALS: BP 107/67; PULSE 66; RESP 20; O2SAT 92
--- NOTE | 2017-02-18 06:43 | NUR ---
SOB: pt SOB while standing at bedside to use urinal. desats into the 70's, oxymask place at 10LO2 while standing at bedside. pt is back in bed on 5LO2 sat low 90s. will continue to monitor.
[2017-02-18 08:42] VITALS: BP 119/69; PULSE 74; RESP 20; O2SAT 94
[2017-02-18] MEDS: Pantoprazole 40 mg ER24 Tablet PO PRN (08:56)
[2017-02-18] MEDS: Isosorbide Mononitrate 60 mg ER24 Tablet PO SCH (08:57)
[2017-02-18] MEDS: HYDROmorphone 1 mg/mL 2 mL Solution PO PRN ×2 (11:24→17:59)
--- NOTE | 2017-02-18 11:45 | NUR ---
CHEST PAIN At 0845 patient c/o chest pain Nitro x1 given SL and again at 0910 for total of 2 doses. Patient reports some relief. made aware, patient on 3L NC, has cough, IVCD turned off yesterday, and patient denies nausea. Hospice in today and reports hospice to bring out bed to house today and patient to go home tomorrow. ) Addendum: 02/18/17 at 1534 by GIRMA LUU RN RESTING Patient resting quietly in bed, reports chest pain tolerable and denies need for morphine at this time. Patient currnently on 3L NC with O2 sat low 90's, lung sounds course and some wheezes. Quill Machine Operator in today visiting with patient, now at bedside.
[2017-02-18 12:30] VITALS: BP 117/70; PULSE 72; RESP 16; O2SAT 94
--- NOTE | 2017-02-18 12:33 | NUR ---
Palliative care note D/A: Pt had [facility] info visit today at 0930. Phone call to Hanna at [facility] who indicates that pt and spouse agreed to sign on to [facility]. Phone call to sridhar Morris and have left message that pt signed on to hospice services. P: Palliative care to follow. Zulema LUNSFORD, CCM
--- NOTE | 2017-02-18 14:00 | NUR ---
Social Work-continued d/c planning: data:EMR reviewed. Pt is on day 1 of hospitalization for non stemi per H&P. Pt is not medically stable. ZAHRA updated by Palliative Care WELDING MACHINE OPERATOR THERMIT that pt and have signed consents with Hospice. SW placed a call to Hospice to determine when they can open with pt. SW left a message awaiting a return call. SW will continue to follow. Assessment:Pt who would benefit from Hospice. Plan:Pt discharge home with Hospice services. SW left a message with Hospice to determine when they can open with pt. SW will continue to follow. ENRIQUE Benavidez Addendum: 02/18/17 at 1709 by ORALIA LEONARD SW called Hospice and left two more messages requesting a return call with intake time for pt. No return call. SW to follow up with Hospice again tomorrow to determine when they can open with pt at home and then update pt and . ENRIQUE Benavidez
--- NOTE | 2017-02-18 14:44 | PCM.PNMED ---
Subjective Date of Service Feb 18, 2017 Subjective Patient on comfort care. Continues to have chest pain but fairly controlled. ICD deactivated 02/17 per request. Awaiting hospice to assume care Exam Vital Signs Vital Sign - Last Date Time Temp Pulse Resp B/P Pulse Ox O2 Delivery O2 Flow Rate FiO2 02/18/17 08:42 36.7 74 20 119/69 94 Nasal Cannula 5.00 Intake and Output 02/17/17 02/17/17 02/18/17 Cumulative From/Thru 15:00 23:00 07:00 02/16/17 22:22 - 02/18/17 06:59 Intake Total 845 ml 400 ml 1295 ml Output Total 300 ml 500 ml 800 ml Balance 545 ml -100 ml 495 ml Intake Oral 825 ml 400 ml 1275 ml IV Total 20 ml 20 ml Output Urine Total 300 ml 500 ml 800 ml # Bowel Movements 0 0 Exam General: Alert and oriented 3; pleasant gentleman resting supine in bed in no acute distress at time of examination, but was tearful HEENT: Atraumatic, normocephalic, sclera anicteric, membranes moist Neck: Full range of motion without pain Cardiac: Regular rate and rhythm at time of examination without any appreciable murmurs Respiratory: Equal and adequate airflow all cameron anteriorly without any wheeze or rhonchi; no use of accessory muscles Chest: Atraumatic without any reproducible pain with palpation Abdomen: Soft, nontender, nondistended Extremities: No edema appreciated Skin: Warm and dry Neuro: Cranial nerves II-XII grossly intact, speech without slur, facial expressions equal and symmetric Psych: Appropriate mood, affect, and responses to questions; moderate insight and judgment IVs and Medications Medications Reviewed: Medications were reviewed in detail Lab and Diagnostics Result Diagram: 02/16/17222902/16/172229 Assessment & Plan Mr. Montoya is an 81-year-old gentleman well known to this facility with multiple readmissions for recurrent chest pain secondary to severe coronary artery disease status post CABG with multiple occlusions within grafts and [place] vessels whom is not a surgical candidate, in addition to ischemic cardiomyopathy with EF 35-40, presented to the emergency department with onset of chest pain with radiation to both of his arms following minor injury in his home. Initial evaluation revealed an elevated troponin at 0.520. Chest pain resolved at time of admission, and at time of admission, patient refused heparinization and laboratory draws. He was admitted for evaluation and treatment of end-stage cardiac disease, and palliative discussion. - Hospital day 1 # NSTEMI, acute, present on admission, monitor - On admit: Troponin 0.520 - Patient respectfully declined heparinization - Due to extensive cardiac history and minimal interventions to provide complete relief, patient and family opted to comfort care - At this time, we will not pursue laboratory draws, heparin drip, or repeat EKGs - Continue oxygen, morphine, nitroglycerin, aspirin - Home meds: Amlodipine 5 mg daily, aspirin 81 mg daily, clopidogrel 75 mg daily , isosorbide mononitrate ER 60 mg daily, metoprolol 50 mg thrice daily. Continue for now -per palliative "symptom mx:oxycodone 5-10 mg PO Q 3 hr prn. Per recommendation of Dr. Beard of hospice, hydromorphone solution, 1 mg per mL, 0.25 mg PO/SL Q 1 hr prn dyspnea/discomfort. If hydromorphone insufficient, fentanyl 25-50 mg IV Q 1 hr prn dyspnea/discomfort. " added morphine 2-4 iv q3h for breakthrough pain # Significant coronary artery disease status post CABG with multivessel graft placement with multiple occlusions, chronic, presumed stable - Patient has had multiple readmissions for recurrent chest pain - Patient last cardiology 02/11/2017 here at [facility] - Recommendations from cardiology at that time included continuation of statin, focus on symptom management - Patient reports significant adverse effects of statin therapy, this will not be continued at this time - Home medications: Aspirin daily, amlodipine 5 mg daily, clopidogrel 75 mg daily, furosemide 20 mg daily, isosorbide mononitrate ER 60 mg daily, Toprol tartrate 50mg thrice daily - We will continue all home medications at this time and patient and family request; no changes will be made - Med list does report Crestor 5 mg daily, but patient reports adverse reaction to statin, and we will hold this medication during this hospitalization # Goals of care, ongoing - Patient and family report excellent relationship with Dr. Marcum - Initial discussions of pursuing alternatives to medical management have been initiated - Again, at this time, patient is a DNR/DNI, and is refusing heparinization and laboratory draws - We can certainly change any orders to reflect his wishes after any further discussion - Palliative care note dated 02/15/2017: Plan for hospice discussion, consideration for disabling his defibrillator, stop Seroquel, symptom management with oxycodone tablets 5 mg every 4 hours as needed, with continuation of nighttime dose of morphine sulfate immediate release during the interim (Lm was made that oxycodone was selected secondary to patient's renal insufficiency) - Copy of POLST was provided by family: DNR/DNI selected -Patient and family opted for comfort care. AICD deactivated. Other chronic conditions; #Diabetes mellitus, presumed stable - Resume home meds: Lantus 33-55U qam, Glipizide 10 mg twice daily - May discontinue upon discharge #Hypertension, chronic, presumed stable - Resume multiple cardiac medications as noted above #Chronic systolic congestive heart failure, presumed stable - Resume multiple cardiac medications as noted above #Acute on chronic kidney disease, stage III, presumed stable - On admit: Creatinine 2.04; creatinine at previous discharge 02/11/2017 was 1.97 - Previous values fluctuate around 1.5, which is likely closer to his previous baseline #Hyperlipidemia, chronic, presumed stable - Med list shows Crestor 5 mg daily, but patient states adverse reactions to all statins - Hold Crestor at this time PRN fever, bowel, nausea, pain DVT: None at this time; SCDs ordered Diet: General GI: Home PPI IVF: None at this time Code: FULL CODE Patient status: Patient is admitted under inpatient status with expected length of stay greater than 2 midnights due to severity of presenting symptoms, risk of adverse event, and complexity of treatment plan. Patient and family opted for hospice care. Discharge tomorrow once hospice arrangement is made GI Prophylaxis: Proton Pump Inhibitor VTE Prophylaxis: SCDs Resuscitation Status: DNR/DNI:Do Not Resuscitate/Intubate Richar Reynoso MD Feb 18, 2017 14:44
[2017-02-18 17:07] VITALS: BP 110/68; PULSE 68; RESP 16; O2SAT 92
[2017-02-18] MEDS ORDERED: Albuterol 2.5 mg/3 mL Inhalation Solution NEB PRN (17:55)
--- NOTE | 2017-02-18 18:15 | NUR ---
Was called for a prn albuterol patient. Talked to and RN. Will wait till patient is no longer having chest pain. Albuterol is contraindicated with active chest pain. They are to call when this is resolved.
--- NOTE | 2017-02-18 19:15 | PCM.PALLBR ---
Palliative Care Recommendation 81-year-old male with complex history of ischemic heart disease, with multiple recent admissions for recurrent chest pain and dyspnea, not a candidate for further mechanical intervention, considering transition to hospice. Palliative medicine consulted to assist with symptom management and determination of goals of care Summary of palliative recommendations: 02/18/2017-chest pain-recurrent and often towards evening. This evening I believe probably precipitated by emotional upset which with tendency towards owning may be a regular phenomenon. Definite anginal component but cannot exclude esophageal dysphagia component. He again declines Carafate His pain has progressed on nitroglycerin so we will proceed to either oral hydromorphone or IV morphine for control. Due to his sensitivity to medication all doses are low. Will defer question of long acting opiate to be established by hospice. Consider methadone at 1-2 mg start due to his sensitivity. Dyspnea-okay saturations. We will try albuterol nebulizer. MCI/mild dementia-- with tendency to have some delirium during hospitalizations but also having some sundowning and anger issues at home. This is a significant stress for his . Will defer to hospice but he may benefit from quetiapine at a quarter dose of 6.25 milligram at PM History of ventricular tachycardia-ICD has never discharged-- now deactivated Family and emotional support-patient's is appreciative to opening hospice. Has multiple children but not in the near vicinity. Has good local support from friends and neighbors -Symptom management (Pain/other)- oxycodone 5-10 mg PO Q 3 hr prn. Per recommendation of Dr. Beard of hospice, hydromorphone solution, 1 mg per mL, 0.25 mg PO/SL Q 1 hr prn dyspnea/discomfort. If hydromorphone insufficient, fentanyl 25-50 mg IV Q 1 hr prn dyspnea/discomfort. (Note that above recommendations are made in the setting of his chronic renal insufficiency and hospital shortage of IV morphine) Continue his metoprolol, amlodipine and aspirin. Increase isosorbide mononitrate to 90 mg daily with further titration as tolerated. Discussed ICD deactivation with Dr. Mccallum of cardiology who will make arrangements. Patient requested liberalization of diet; advance to general diet with no restrictions -DPOA/Advanced Directives/POLST- per POLST of 02/11 he is DO NOT RESUSCITATE/DO NOT INTUBATE/limited interventions/no artificial nutrition. Will plan on updating as he transitions to hospice. -Family/emotional support- palliative will continue to follow support Additional Medical Diagnoses with primary management by Hospitalist team include : NSTEMI, acute, present on admission, monitor Significant coronary artery disease status post CABG with multivessel graft placement with multiple occlusions, chronic, presumed stable Goals of care, ongoing - Patient and family report excellent relationship with Dr. Marcum - Initial discussions of pursuing alternatives to medical management have been initiated - Patient would like to speak with Dr. Marcum, or another member of the palliative care team, to determine the next best step in his care - Again, at this time, patient is a DNR/DNI, and is refusing heparinization and laboratory draws - We can certainly change any orders to reflect his wishes after any further discussion - Palliative care note dated 02/15/2017: Plan for hospice discussion, consideration for disabling his defibrillator, stop Seroquel, symptom management with oxycodone tablets 5 mg every 4 hours as needed, with continuation of nighttime dose of morphine sulfate immediate release during the interim (Lm was made that oxycodone was selected secondary to patient's renal insufficiency) - Copy of POLST was provided by family: DNR/DNI selected - Patient comfort is goal at this time until further discussions can be completed with palliative care, to determine the next steps in patient care Diabetes mellitus, presumed stable Hypertension, chronic, presumed stable Chronic systolic congestive heart failure, presumed stable Acute on chronic kidney disease, stage III, presumed stable Hyperlipidemia, chronic, presumed stable Problems: End of Life Preferences DO NOT RESUSCITATE/DO NOT INTUBATE/transitioning to hospice Disposition Probably home with hospice Resuscitation Status Resuscitation Status: DNR/DNI:Do Not Resuscitate/Intubate POLST Updates/Changes Previous POLST?: Yes POLST Last Review Date: Feb 17, 2017 Artificially Admin Nutrition: No Artifical Nutrition by Tube POLST Discussed with: Patient POLST Review Outcome: No Change . Symptom management: Agitation, Dyspnea, Pain Total time 40 minutes; >50% face to face with patient and/or family, providing counselling regarding plans and recommendations, and in care coordination with his/her medical teams. Majority of time spent with interview and medication planning and support of his . Also management of acute bout of chest pain I also spent an additional [ ] minutes counseling for advanced care planning with the patient/the patients family/the surrogate decision maker. copies to: Dara Vargas MD Palliative Brief Note Date of Service Feb 18, 2017 . follow up palliative visit. Patient seen with his at bedside. Earlier in day --bit confused and groggy thought due to 1/2 of hydrocodone so visit postponed at his request. Shortly after visit patient began complaining of increasing shoulder pain. He considers this part of his anginal equivalent and he was given a nitroglycerin. His states he was upset about some of the discussion and as it progressed he became more angry and agitated. His had mentioned increasing agitation since his multiple hospitalizations -- see prior visit Trial of Seroquel at 12.5 mg caused oversedation-although she was giving it to him twice a day not just HS She states she will fall asleep with Tylenol. He has some degree of choking and coughing with drinking fluids in bed and apparently has diagnosis of esophageal dysmotility based on relatively recent EGD and barium swallow. Trial of evening dose of Carafate supported by his refusal to take it His had discussion with hospice this morning and was back home arranging for equipment to be delivered with the plan for hospice to open tomorrow. Patient does not want to be hospitalized further. This then causes him to get angry about insurance not allowing him to be hospitalized at [facility] or [place] O: Early in day pleasant talkative, now moderately agitated, speech is slightly pressured Has audible wheezing with prolonged expiratory phase Heart rate regular No edema Cranial nerves are symmetrical Conchis Marcum MD Feb 18, 2017 19:15
--- NOTE | 2017-02-18 19:27 | NUR ---
MORE CHEST PAIN Patient had another bout of chest pain, Nitro given at 1740, Dilaudid oral given at 1800, 2mg IVP MS given at 1900 with good relief. Patient taking off his O2 states "I will put it on later"
[2017-02-18 20:46] VITALS: BP 108/65; PULSE 72; RESP 20; O2SAT 89
[2017-02-18 20:50] VITALS: PULSE 67; RESP 22; O2SAT 91
--- NOTE | 2017-02-19 04:31 | NUR ---
Mentation/Sitter Pt became combative with when she stated she wanted to move him up in bed. This magnetic tape typewriter operator suggested that a INSPECTOR DIALS would be better to assist with bed mobility. Pt began to swing his arms, curse, and kick out in anger. Pt yelled, "Get out of here to staff and ." Pt attempted to stand unassisted and has noted generalized weakness with unsteady gait. Several attempts made to calm the patient, but a 1:1 sitter had to be placed in the room for safety. Pt refused medications, oxygen via NC, SCDS with present and aware. Temp 37.8 and refused Tylenol and cool towels. "No!" Pt eventually calmed down and he was agreeable to physical assessment along with O2 NC. At this time patient has had little to no sleep, but cooperative. Care continues.
[2017-02-19 05:21] VITALS: BP 118/71; PULSE 67; RESP 22; O2SAT 91
--- NOTE | 2017-02-19 06:37 | NUR ---
Temp Temp 38.2; Tylenol 975mg given and temp reduced to 37.4. Care ongoing.
[2017-02-19 08:00] VITALS: PULSE 61
[2017-02-19 08:04] VITALS: PULSE 72; RESP 20; O2SAT 89
[2017-02-19] MEDS: Pantoprazole 40 mg ER24 Tablet PO PRN (09:44)
[2017-02-19] MEDS: Isosorbide Mononitrate 60 mg ER24 Tablet PO SCH (09:45)
--- NOTE | 2017-02-19 12:49 | PCM.DIMED ---
Discharge Instructions Date of Service Feb 19, 2017 Dates of Hospitalization Feb 17, 2017 at 00:59 Discharge Diagnosis Discharge Diagnosis # NSTEMI, acute, present on admission, ongoing # Significant coronary artery disease status post CABG with multivessel graft placement with multiple occlusions, chronic, presumed stable Other chronic conditions; #Diabetes mellitus, presumed stable #Hypertension, chronic, presumed stable #Chronic systolic congestive heart failure, presumed stable #Acute on chronic kidney disease, stage III, presumed stable #Hyperlipidemia, chronic, presumed stable Diet Discharge Diet: No restrictions Activity Discharge Activity: No restrictions Call your provider Call your provider for: Other (call your hospice provider for any concerns) Patient Instructions Patient Instructions You were hospitalized due to heart attack. You and your family opted for hospice care due to recurrence of heart attack. Please take hydromorphone liquid 1 mg per mL, 0.25 mg PO/SL Q 1 hr prn dyspnea/discomfort. Please take Haldol liquid 1 mg/ml 0.25mg every 4 hours for agitation and anxiety. You may continue taking Plavix, metoprolol,Imdur for comfort purpose as prescribed . Follow-up Provider: Tammy Briggs MD Follow-up with PCP in: 3 weeks Provider: Conchis Marcum MD Follow-up in: 1 week Richar Reynoso MD Feb 19, 2017 12:49
[2017-02-19] MEDS ORDERED: HYDR1LIQ4 PO (12:55)
[2017-02-19] MEDS ORDERED: HALO2ORA PO (12:55)
[2017-02-19] MEDS ORDERED: ISOS60TA2 PO (12:55)
--- NOTE | 2017-02-19 13:08 | NUR ---
Social Work: Discharge Data: EMR reviewed. Patient is on day 2 of hospitalization for nonstemi & chest pain per H&P. Patient was discussed in morning rounds. Patient has been deemed medically stable for discharge per MD. Patient will discharge home with . Consents were signed on 02/18 for hospice. SW received a [facility] and was informed that the earliest that RN will be able to see patient will be 02/22/17 between 1000 - 1100. Info has been communicated with MD and patient's spouse. Spouse states that she will have help this weekend and she is okay with patient discharge home today. Transportation will be provided by family. Patient will DC home and will require home O2 setup. SW called [facility] and was informed that O2 has been scheduled for delivery to home today. Patient has no additional needs at this time. Assessment: Patient will discharge home with hospice services. Plan: Patient will discharge home today. Transportation will be provided by family. Patient will receive hospice services via [facility] . Patient has no additional needs at this time. ENRIQUE Brown
[2017-02-19 14:32] VITALS: BP 111/65; PULSE 67; RESP 22; O2SAT 94
--- NOTE | 2017-02-19 15:45 | PCM.DC.MED ---
Discharge Summary Date of Service Feb 19, 2017 Dates of Hospitalization Date of Hospital Admission Feb 17, 2017 at 00:59 Date of Discharge: Feb 19, 2017 Providers: Admitting Physician: Vandana Nava DO Primary Care Physician: Tammy Briggs MD Attending Physician: Richar Victor MD Diagnosis at Time of Discharge Diagnosis at Time of Discharge # NSTEMI, acute, present on admission, ongoing # Significant coronary artery disease status post CABG with multivessel graft placement with multiple occlusions, chronic, presumed stable Other chronic conditions; #Diabetes mellitus, presumed stable #Hypertension, chronic, presumed stable #Chronic systolic congestive heart failure, presumed stable #Acute on chronic kidney disease, stage III, presumed stable #Hyperlipidemia, chronic, presumed stable Consultations Palliative Dr. Marcum Brief History Per admission H&P: Mr. Montoya is an 81-year-old gentleman well known to this facility with multiple readmissions for recurrent chest pain secondary to severe coronary artery disease status post CABG with multiple occlusions within grafts and three affiliated vessels whom is not a surgical candidate, in addition to ischemic cardiomyopathy with EF 35-40, presented to the emergency department with onset of chest pain with radiation to both of his arms following minor injury in his home. Initial evaluation revealed an elevated troponin at 0.520. Chest pain resolved at time of admission, and at time of admission, patient refused heparinization and laboratory draws. He was admitted for evaluation and treatment of end-stage cardiac disease, and palliative discussion Of note, the patient and had been working closely with Dr. Marcum of palliative care, and would like to hold all further interventions until another discussion with palliative care is completed. Patient was transported to medical floor in stable condition, and patient has decided to forgo heparinization and routine labs at this time. Palliative medicine consulted to assist with symptom management and definition of goals of care, with probable transition to hospice Prior to visiting, high reviewed his records in the EMR in detail, spoke with his nurse, his medical team and with Dr. Beard of hospice. I also spoke with Drs. Tristan and Alessio of cardiology When I arrived, patient was lying in bed with his at bedside. We spoke at length, reviewing his recent hospitalizations, his recurrent symptoms, his discussions with cardiologists and his previous consultation with Dr. Marcum of palliative medicine. Reviewed his understanding of his cardiac situation and its intractable nature. Patient has been advised now by multiple cardiologists that there are no further options for mechanical intervention. He and his have considered and discussed hospice care and at this time wish to proceed with information visit and probable transition to hospice. He continues to have frequent episodes of upper retrosternal chest discomfort with sense of dyspnea and air hunger. This is relieved only briefly with morphine. There is a hospital shortage of morphine and it is relatively contraindicated in the setting of his chronic renal insufficiency. We discussed his pacemaker/ICD and they were relieved to know that Dr. Mccallum will be making arrangements for the ICD component to be shut off prior to his leaving the hospital. His is tearful. She says that the patient's illness has changed him and that he has been verbally lashing out at her when he feels bad and is frustrated. She does not feel that she can care for him at home alone and has been talking with their children - while they would like to help none of them are immediately available for continuous care at home. Patient and his do not want to consider sending him to an SNF, and even if they sign on with hospice they may require additional assistance at home. Hospital Course Mr. Montoya is an 81-year-old gentleman well known to this facility with multiple readmissions for recurrent chest pain secondary to severe coronary artery disease status post CABG with multiple occlusions within grafts and three affiliated vessels whom is not a surgical candidate, in addition to ischemic cardiomyopathy with EF 35-40, presented to the emergency department with onset of chest pain with radiation to both of his arms following minor injury in his home. Initial evaluation revealed an elevated troponin at 0.520. Chest pain resolved at time of admission, and at time of admission, patient refused heparinization and laboratory draws. He was admitted for evaluation and treatment of end-stage cardiac disease, and palliative discussion. - Hospital day 1 # NSTEMI, acute, present on admission, monitor - On admit: Troponin 0.520 - Patient respectfully declined heparinization - Due to extensive cardiac history and minimal interventions to provide complete relief, patient and family opted to comfort care - At this time, we will not pursue laboratory draws, heparin drip, or repeat EKGs - Continue oxygen, morphine, nitroglycerin, aspirin for comfort purpose - Home meds: , Continue aspirin 81 mg daily, clopidogrel 75 mg daily, isosorbide mononitrate ER 60 mg daily( increased to 90 daily) , metoprolol 50 mg thrice daily. Discontinue Amlodipine 5 mg daily -per palliative symptom mx:hydromorphone solution, 1 mg per mL, 0.25 mg PO/SL Q 1 hr prn dyspnea/discomfort. soike with Dr Marcum ,will give halol 1mg/ml soln 0.25mg q4h prn for agitation -Hydromorphone preferred over morphine due to advanced CKD # Significant coronary artery disease status post CABG with multivessel graft placement with multiple occlusions, chronic, presumed stable - Patient has had multiple readmissions for recurrent chest pain - Patient last cardiology 02/11/2017 here at [facility] # Goals of care, ongoing -patient and family opted to comfort care , patient is a DNR/DNI - Copy of POLST was provided by family: DNR/DNI selected -Patient and family opted for comfort care. AICD deactivated. Other chronic conditions; #Diabetes mellitus, presumed stable -Discontinue Lantus 33-55U qam, Glipizide 10 mg twice daily #Hypertension, chronic, presumed stable - Resume cardiac medications as noted above. Discontinue nonbloody pain #Chronic systolic congestive heart failure, presumed stable - Resume multiple cardiac medications as noted above #Acute on chronic kidney disease, stage III, presumed stable #Hyperlipidemia, chronic, presumed stable Discharge to home on home hospice. Hospice will assume care on Wednesday . Dr Marcum is professor of economics for hospice for this weekend. She offered her phone number to patient's . Patient's to communicate with Dr. Marcum if any issues until Wednesday when hospice resumes . I thank Dr Marcum for her expertise and support of the patient and family Exam Vital Signs (Last) Date Time Temp Pulse Resp B/P Pulse Ox O2 Delivery O2 Flow Rate FiO2 02/19/17 14:32 38.2 67 22 111/65 94 Nasal Cannula 5.00 Exam General: Alert and oriented 3; pleasant gentleman resting supine in bed in no acute distress at time of examination, but was tearful HEENT: Atraumatic, normocephalic, sclera anicteric, membranes moist Neck: Full range of motion without pain Cardiac: Regular rate and rhythm at time of examination without any appreciable murmurs Respiratory: Equal and adequate airflow all cameron anteriorly without any wheeze or rhonchi; no use of accessory muscles Chest: Atraumatic without any reproducible pain with palpation Abdomen: Soft, nontender, nondistended Extremities: No edema appreciated Skin: Warm and dry Neuro: Cranial nerves II-XII grossly intact, speech without slur, facial expressions equal and symmetric Psych: Appropriate mood, affect, and responses to questions; moderate insight and judgment Test 02/16/17 22:30 White Blood Count 8.2th/mm3 (3.8-10.1) Red Blood Count 3.71mil/mm3 (4.40-5.80) Hemoglobin 11.3g/dL (13.8-17.2) Hematocrit 33.5% (41.0-50.0) Mean Corpuscular Volume 90.3fL (81-100) Mean Corpuscular Hemoglobin 30.5pg (27.0-35.0) Mean Corpuscular Hemoglobin Concent 33.7% (32.0-37.0) Red Cell Distribution Width 14.1% (12.3-15.4) Platelet Count 208bil/L (150-400) Neutrophils (%) (Auto) 62.3% (40-74) Lymphocytes (%) (Auto) 22.3% (14-46) Monocytes (%) (Auto) 9.3% (4-12) Eosinophils (%) (Auto) 5.4% (0-5) Basophils (%) (Auto) 0.6% (0-3) Prothrombin Time 10.6sec (8.1-12.5) Prothromb Time International Ratio 0.99ratio Sodium Level 138mEq/L (134-144) Potassium Level 4.5mEq/L (3.5-5.2) Chloride Level 102mEq/L (97-108) Carbon Dioxide Level 20mmol/L (18-29) Blood Urea Nitrogen 35mg/dL (8-27) Creatinine 2.04mg/dL (0.76-1.27) Estimat Glomerular Filtration Rate 33mL/min (>59) Glucose Level 188mg/dL (60-99) Calcium Level 8.9mg/dL (8.5-10.1) Magnesium Level 2.0mg/dL (1.6-2.6) Total Bilirubin 0.5mg/dL (0.0-1.2) Aspartate Amino Transf (AST/SGOT) 21U/L (0-50) Alanine Aminotransferase (ALT/SGPT) 19U/L (0-44) Alkaline Phosphatase 53U/L (25-160) Troponin T 0.520ug/L (0.0-0.011) Pro-B-Type Natriuretic Peptide 3476pg/mL (0-486) Total Protein 7.0g/dL (6.4-8.4) Albumin 3.7g/dL (3.4-5.0) Discharge Medications Discharge Medications Clopidogrel (Clopidogrel) 75 Mg Tablet 75 MG PO DAILY Prescribed by: ALIZA FUENTES MD Furosemide (Lasix) 20 Mg Tablet 20 MG PO DAILY Prescribed by: CARLOTTA ENCINAS DO Isosorbide MN ER (Isosorbide MN ER) 60 Mg Tab.er.24h 90 MG PO DAILY Prescribed by: RICHAR VICTOR MD Metoprolol Tartrate (Metoprolol Tartrate) 50 Mg Tablet 50 MG PO TID (Reported) As needed Haloperidol Lactate (Haloperidol Lactate) 2 Mg/1 Ml Oral.conc 0.25 MG PO Q4H PRN PRN For Agitation Prescribed by: RICHAR VICTOR MD Hydromorphone (Hydromorphone) 1 Mg/1 Ml Liquid 0.25 MG PO Q1H PRN PRN For Shortness of Breath Prescribed by: RICHAR VICTOR MD Nitroglycerin SL (Nitroglycerin SL) 0.4 Mg Tab.subl 0.4 MG SL PRN PRN PRN CHEST PAIN take one every 5 min for 3 doses for chest pain, call 911 if not better Prescribed by: ALIZA FUENTES MD Pantoprazole DR (Pantoprazole DR) 40 Mg Tablet.dr 40 MG PO DAILY PRN PRN For Dyspepsia or Heartburn (Reported) oxyCODONE-Acetaminophen 5-325 mg (oxyCODONE-Acetaminophen 5-325 mg) 1 Each Tablet 1 TAB PO Q4H PRN PRN For Pain Prescribed by: FRAN NOVAK DO Followup Plan Disposition: Home on hospice Discharge Diet: No restrictions Discharge Activity: No restrictions Patient Instructions You were hospitalized due to heart attack. You and your family opted for hospice care due to recurrence of heart attack. Please take hydromorphone liquid 1 mg per mL, 0.25 mg PO/SL Q 1 hr prn dyspnea/discomfort. Please take Haldol liquid 1 mg/ml 0.25mg every 4 hours for agitation and anxiety. You may continue taking Plavix, metoprolol,Imdur for comfort purpose as prescribed . Follow-up Provider: Tammy Briggs MD Follow-up with PCP in: 3 weeks Provider: Conchis Marcum MD Follow-up in: 1 week Time spent 40 minutes coordinating discharge copies to: Tammy Briggs MD; Conchis Marcum MD, Melaku MD Feb 19, 2017 15:45 Prescribed by: FRAN NOVAK, DO Followup Plan Discharge Diet: No restrictions Discharge Activity: No restrictions Patient Instructions You were hospitalized due to heart attack. You and your family opted for hospice care due to recurrence of heart attack. Please take hydromorphone liquid 1 mg per mL, 0.25 mg PO/SL Q 1 hr prn dyspnea/discomfort. Please take Haldol liquid 1 mg/ml 0.25mg every 4 hours for agitation and anxiety. You may continue taking Plavix, metoprolol,Imdur for comfort purpose as prescribed . Follow-up Provider: Tammy Briggs MD Follow-up with PCP in: 3 weeks Provider: Conchis Marcum MD Follow-up in: 1 week Richar Victor MD Feb 19, 2017 15:45
--- NOTE | 2017-02-19 15:50 | NUR ---
Scheduled transportation via [employer] will be at 430PM or a little later, they will pay privately for this wheel chair transport home. Updated P[employer]
--- NOTE | 2017-02-19 16:59 | NUR ---
Discharge Nursing Note: Patient was discharged to home at 1655. His IV was removed intact. All of his discharge information was reviewed with him and his questions were answered to his satisfaction. Hospice is set up at home for him. Patient was brought to home by [facility]. The transport person picked patient up in w/c and transported patient in transport vehicle.
--- NOTE | 2017-02-19 18:50 | PCM.PALLBR ---
Palliative Care Recommendation 81-year-old male with complex history of ischemic heart disease, with multiple recent admissions for recurrent chest pain and dyspnea, not a candidate for further mechanical intervention, considering transition to hospice. Palliative medicine consulted to assist with symptom management and determination of goals of care Summary of palliative recommendations: 02/19/17 Agitation- reviewed need for med at home even if sedating for radha. Trial of haloperidol liquid-0.25 mg to start mid-afternoon but to increase to 0.5 mg if needed Q4 H for sundowning She will have help at home over the weekend which will help to control while dose is adjusted. His threw his quetiapine away Chest Pain-continue with NTG and hydromorphone liquid 0.25-0.5 mg PO Q1-2H prn continue betablockers, LA ntg and ASA for comfort. Constipation- regular dosing of senna until successful. F/u prn over the weekend until Hospice takes over. 02/18/2017-chest pain-recurrent and often towards evening. This evening I believe probably precipitated by emotional upset which with tendency towards sundowning may be a regular phenomenon. Definite anginal component but cannot exclude esophageal dysphagia component. He again declines Carafate His pain has progressed on nitroglycerin so we will proceed to either oral hydromorphone or IV morphine for control. Due to his sensitivity to medication all doses are low. Will defer question of long acting opiate to be established by hospice. Consider methadone at 1-2 mg start due to his sensitivity. Dyspnea-okay saturations. We will try albuterol nebulizer. MCI/mild dementia-- with tendency to have some delirium during hospitalizations but also having some sundowning and anger issues at home. This is a significant stress for his . Will defer to hospice but he may benefit from quetiapine at a quarter dose of 6.25 milligram at PM History of ventricular tachycardia-ICD has never discharged-- now deactivated Family and emotional support-patient's is appreciative to opening hospice. Has multiple children but not in the near vicinity. Has good local support from friends and neighbors -Symptom management (Pain/other)- oxycodone 5-10 mg PO Q 3 hr prn. Per recommendation of Dr. Beard of hospice, hydromorphone solution, 1 mg per mL, 0.25 mg PO/SL Q 1 hr prn dyspnea/discomfort. If hydromorphone insufficient, fentanyl 25-50 mg IV Q 1 hr prn dyspnea/discomfort. (Note that above recommendations are made in the setting of his chronic renal insufficiency and hospital shortage of IV morphine) Continue his metoprolol, amlodipine and aspirin. Increase isosorbide mononitrate to 90 mg daily with further titration as tolerated. Discussed ICD deactivation with Dr. Mccallum of cardiology who will make arrangements. Patient requested liberalization of diet; advance to general diet with no restrictions -DPOA/Advanced Directives/POLST- per POLST of 02/11 he is DO NOT RESUSCITATE/DO NOT INTUBATE/limited interventions/no artificial nutrition. Will plan on updating as he transitions to hospice. -Family/emotional support- palliative will continue to follow support Additional Medical Diagnoses with primary management by Hospitalist team include : NSTEMI, acute, present on admission, monitor Significant coronary artery disease status post CABG with multivessel graft placement with multiple occlusions, chronic, presumed stable Goals of care, ongoing - Patient and family report excellent relationship with Dr. Marcum - Initial discussions of pursuing alternatives to medical management have been initiated - Patient would like to speak with Dr. Marcum, or another member of the palliative care team, to determine the next best step in his care - Again, at this time, patient is a DNR/DNI, and is refusing heparinization and laboratory draws - We can certainly change any orders to reflect his wishes after any further discussion - Palliative care note dated 02/15/2017: Plan for hospice discussion, consideration for disabling his defibrillator, stop Seroquel, symptom management with oxycodone tablets 5 mg every 4 hours as needed, with continuation of nighttime dose of morphine sulfate immediate release during the interim (Lm was made that oxycodone was selected secondary to patient's renal insufficiency) - Copy of POLST was provided by family: DNR/DNI selected - Patient comfort is goal at this time until further discussions can be completed with palliative care, to determine the next steps in patient care Diabetes mellitus, presumed stable Hypertension, chronic, presumed stable Chronic systolic congestive heart failure, presumed stable Acute on chronic kidney disease, stage III, presumed stable Hyperlipidemia, chronic, presumed stable Problems: End of Life Preferences DO NOT RESUSCITATE/DO NOT INTUBATE/transitioning to hospice Disposition Probably home with hospice Resuscitation Status Resuscitation Status: DNR/DNI:Do Not Resuscitate/Intubate POLST Updates/Changes Previous POLST?: Yes POLST Last Review Date: Feb 17, 2017 Artificially Admin Nutrition: No Artifical Nutrition by Tube POLST Discussed with: Patient POLST Review Outcome: No Change . Symptom management: Drowsiness/sleepiness, Agitation, Dyspnea, Pain, Constipation Total time 45 minutes; >50% face to face with patient and/or family, providing counselling regarding plans and recommendations, and in care coordination with his/her medical teams. med management and review of safety issues at home, coordinaiton of care I also spent an additional [ ] minutes counseling for advanced care planning with the patient/the patients family/the surrogate decision maker. copies to: Tammy Briggs MD Palliative Brief Note Date of Service Feb 19, 2017 . Patient seen with his Bailey at bedside. Initially seen early in AM-still very angry agitated and speaking poorly of his . Later at bedside and he is holding her leg for comfort. States still very SOB States wants to get home but unclear he knows where he is. Lungs- ongoing wheezing and rales COR-RR + edema abd- central obesity CR 2.0 Conchis Marcum MD Feb 19, 2017 18:50
== END 2017-02-19 16:45 | disposition hospice, home (50) | DRG 281 ==
LOC: SED 22:19 → MPC 02-17 00:59
PROVIDERS: ADMIT Internal Medicine; ATTEND Internal Medicine
DX: I21.4 Non-ST elevation (NSTEMI) myocardial infarction (principal); I50.22 Chronic systolic (congestive) heart failure; I25.810 Atherosclerosis of coronary artery bypass graft(s) without angina pectoris; N17.9 Acute kidney failure, unspecified; F05 Delirium due to known physiological condition; Z79.82 Long term (current) use of aspirin; Z79.4 Long term (current) use of insulin; Z79.84 Long term (current) use of oral hypoglycemic drugs; Z95.1 Presence of aortocoronary bypass graft; Z51.5 Encounter for palliative care; Z66 Do not resuscitate; E11.9 Type 2 diabetes mellitus without complications; N18.3 Chronic kidney disease, stage 3 (moderate); I12.9 Hypertensive chronic kidney disease with stage 1 through stage 4 chronic kidney disease, or unspecified chronic kidney disease; E78.5 Hyperlipidemia, unspecified; Z95.810 Presence of automatic (implantable) cardiac defibrillator; I25.2 Old myocardial infarction